=== PATIENT | female | born 1945 | race Asian ===

== ENCOUNTER 2019-09-28 12:25 | Outpatient (CLI) | payer MEDICARE, OTHER, SELFPAY ==
--- NOTE | ~2019-09-28 | XR_ITS ---
XR hand LT min 3V DATE: 09/28/2019 12:49 INDICATION: Slammed hand in trace can lid. Third digit pain. TECHNIQUE: 3 views COMPARISON: 10/16/2011 left hand FINDINGS: No fracture or dislocation, periosteal reaction or bone destruction. There are osteoarthritic changes involving particularly the distal interphalangeal joints, most promi nent at the fifth, third and particularly second distal interphalangeal joints. There is narrowing at the triscaphe joint. Osteopenia. IMPRESSION: Osteoarthritic changes No fracture or dislocation Reviewed, dictated and finalized at location J.
== END 2019-09-28 12:26 | disposition home or self-care (01) ==
PROVIDERS: PCP Family Medicine; Visit Provider Family Medicine
DX: M79.642 Pain in left hand (principal)
CPT/HCPCS: 73130

== ENCOUNTER 2019-11-30 14:31 | Outpatient (CLI) | payer MEDICARE, OTHER, SELFPAY ==
--- NOTE | ~2019-11-30 | XR_ITS ---
EXAMINATION: XR foot RT standing 2V EXAM DATE: 11/30/2019 15:53 INDICATION: Foot pain. Osteoarthritis. TECHNIQUE: Frontal and lateral projections of the right foot. Correlation is made to contralateral f oot same date. FINDINGS: There is mild polyarticular right foot interphalangeal primary osteoarthritis. There are no acute fractures or dislocations identified. There is no subcutaneous gas. The soft tissue is unrem arkable. There are no radiopaque foreign bodies. There are no bony erosions identified. IMPRESSION: Mild right foot polyarticular interphalangeal osteoarthritis. Reviewed, dictated and finalized at location A.
--- NOTE | ~2019-11-30 | XR_ITS ---
EXAMINATION: XR lumbar spine 2-3V EXAM DATE: 11/30/2019 15:53 INDICATION: Arthritis. Back pain. TECHNIQUE: Lumber spine frontal, lateral, lateral L5-S1 projections for interpretation. Comparison is made to prior examination from 01/04/2009. FINDINGS: There is moderate disc disease at L5-S1, mild to moderate at L3-4 with 2-3 mm anterolisthe sis at this level. Mild disc disease at the other lumbar levels. There is mild to moderate lumbar fac et arthropathy. Mild scattered aortic arterial sclerosis. Mild diffuse chronic appearing loss of the L5 vertebral body height. There are no acute fractures identified. Sacrum, sacroiliac joints, sacral arcuate lines are intact. There are cholecystectomy clips. There has been mild progression in these f indings compared to 2008. IMPRESSION: Mild to moderate lumbar spondylosis. Reviewed, dictated and finalized at location A.
--- NOTE | ~2019-11-30 | XR_ITS ---
XR knee RT 3V, XR knee LT 3V 11/30/2019 15:54 Indication: Knee pain. Osteoarthritis. Procedure: 3 views of each knee Comparison: No prior studies for comparison. Findings: No fracture, subluxation or dislocation. There is chronic sclerosis bilaterally and symmetr ically in the distal femoral diaphysis, likely benign. No significant joint space narrowing. No erosi ve changes. No significant joint effusion. Impression: 1: No acute bone or joint abnormality. Reviewed, dictated and finalized at location A. Impression: 1: No acute bone or joint abnormality. Impression: 1: No acute bone or joint abnormality.
--- NOTE | ~2019-11-30 | XR_ITS ---
EXAMINATION: XR hip BI 2V w AP pelvis EXAM DATE: 11/30/2019 15:54 INDICATION: Osteoarthritis. TECHNIQUE: Each hip imaged independently (separate right and also left hip) 'frog leg' and frontal p rojections for interpretation. Frontal projection pelvis. Comparison is made to prior examination fr om 03/22/2013. FINDINGS: No radiographic evidence of hip avascular necrosis. There is mild symmetric bilateral hip primary osteoarthritis. There is advanced disc disease at L5-S1. There are no acute fractures or di slocations identified. There is no subcutaneous gas. The soft tissue is unremarkable. There are n o radiopaque foreign bodies. IMPRESSION: Mild symmetric bilateral hip osteoarthritis. Reviewed, dictated and finalized at location A.
--- NOTE | ~2019-11-30 | XR_ITS ---
EXAMINATION: XR hand BI arthritis min 3V EXAM DATE: 11/30/2019 15:53 INDICATION: Osteoarthritis. Bilateral hand pain. TECHNIQUE: Right hand frontal, lateral and oblique projections obtained and reviewed. Left hand fron kenia, lateral and oblique projections obtained and reviewed. Catchers projection of both hands. Compar anita is made to prior examination from 12/27 07/19 (left hand). FINDINGS: Right hand: There is moderate right 2nd, 5th distal interphalangeal primary osteoarthritis. Otherwis e mild distal interphalangeal osteoarthritis. There are no bony erosions identified. Left hand: There is polyarticular primary osteoarthritis as follows: Moderate 2nd, 3rd, 5th DIP, mild 1st IP and 4th DIP. There are no bony erosions identified. The soft tissue is unremarkable. IMPRESSION: Polyarticular osteoarthritis, moderate at the right 2nd, 5th DIP joints and left 2nd 3rd and 5th DIP joints. Reviewed, dictated and finalized at location A. IMPRESSION: Polyarticular osteoarthritis, moderate at the right 2nd, 5th DIP riri ints and left 2nd 3rd and 5th DIP joints.
--- NOTE | ~2019-11-30 | XR_ITS ---
EXAMINATION: XR foot LT standing 2V EXAM DATE: 11/30/2019 15:53 INDICATION: Osteoarthritis. Foot pain. TECHNIQUE: Frontal and lateral projections of the left foot. Comparison is made to prior examination from 12/26/2006. FINDINGS: There are no acute left foot fractures or dislocations identified. There is no subcutaneou s gas. The soft tissue is unremarkable. There are no radiopaque foreign bodies. There are no bony erosions identified. There is mild polyarticular interphalangeal primary osteoarthritis. IMPRESSION: Mild left foot polyarticular interphalangeal osteoarthritis. Reviewed, dictated and finalized at location A.
== END 2019-11-30 14:32 | disposition home or self-care (01) ==
LOC: ANHIMG 14:48
PROVIDERS: PCP Family Medicine; Visit Provider Internal Medicine
DX: M16.0 Bilateral primary osteoarthritis of hip (principal); M19.071 Primary osteoarthritis, right ankle and foot; M19.072 Primary osteoarthritis, left ankle and foot; M47.896 Other spondylosis, lumbar region; M19.041 Primary osteoarthritis, right hand; M19.042 Primary osteoarthritis, left hand
CPT/HCPCS: 72100; 73130; 73521; 73562; 73620

== ENCOUNTER 2019-12-14 00:39 | Outpatient (CLI) | payer MEDICARE, OTHER, SELFPAY ==
[2019-12-14 18:12] LABS: SARS-CoV-2 RNA PCR Negative
== END 2019-12-14 00:40 | disposition home or self-care (01) ==
LOC: ANHCOVIDDT 00:39
PROVIDERS: PCP Family Medicine; Visit Provider Internal Medicine Gastroenterology
DX: Z01.812 Encounter for preprocedural laboratory examination (principal); Z20.828 Contact with and (suspected) exposure to other viral communicable diseases
CPT/HCPCS: 87635; C9803; U0003

== ENCOUNTER 2019-12-16 00:38 | Day surgery (SDC) | payer MEDICARE, SELFPAY ==
[2019-12-13 13:17] VITALS: BMI 18.1
[2019-12-16 09:08] VITALS: BP 143/89; RESP 16; TEMP 36.6; O2SAT 99; BMI 17.4
[2019-12-16] MEDS: LACTATED RINGERS 1,000 ML 150 ML IV CONT (09:20)
--- NOTE | 2019-12-16 09:22 | PM.IMHP ---
H&P: HPI History of Present Illness Chief complaint: GASTRIC ULCER HEMORRHAGE Narrative: Reason for visit EGD. Impression: History of gastric ulcer disease. GERD. Her past medical history. Recommendation: EGD. History: This very pleasant lady has a history of multiple gastric ulcers. She is here for follow-up endoscopy to assess healing. She continues to complain of occasional abdominal discomfort. She has a history reflux disease and is on omeprazole. She takes Pepcid on a p.r.n. basis. She is here for endoscopy. Physical examination: General: very pleasant patient in no acute distress. HEENT: Head was normocephalic sclerae is clear mouth without masses neck was supple. Heart: Rate rhythm regular without S3 or S4. Lungs: CTA. Abdomen: Soft with no guarding or rigidity. Bowel sounds were active. Neurologic: Cranial nerves 2 through 12 intact. No focal defects. No clonus. Musculoskeletal system: Revealed no joint tenderness or swelling no muscle atrophy. Extremities: Reveal no significant edema. Skin: Warm and dry with normal turgor. Mental status: intact. Patient is alert and oriented. Review of Systems Review of Systems: All systems reviewed & are unremarkable except as noted in HPI and below PMFSH Past Medical History Medical History (Updated 12/16/19 @ 09:20 by Dmitriy Pak DO) Anxiety Arthritis Back pain Chronic GERD Chronic narcotic use Depression Fibromyalgia Gastric ulcer HTN (hypertension) Hypercholesterolemia Inflammatory arthritis Osteoporosis Surgical History Surgical History History of back surgery Hx laparoscopic cholecystectomy Hx of colonoscopy Hx of esophagogastroduodenoscopy Hx of submandibular gland removal Social History Social History Smoking status: Never smoker Alcohol intake: never Substance use: never Meds Home Medications and Allergies Home Medications Medication Instructions Recorded Confirmed Type baclofen 10 mg PO Q8-10H PRN 05/13/19 12/13/19 History famotidine 20 mg PO PRN 05/13/19 12/16/19 History fexofenadine [Alice Allergy] 60 mg PO PRN 05/13/19 12/16/19 History omeprazole 40 mg PO DAILY 05/13/19 12/16/19 History ondansetron 4 mg TRANSLINGUAL PRN PRN 05/13/19 12/13/19 History tramadol 50 mg PO Q6-8H PRN 05/13/19 12/16/19 History zolpidem 10 mg PO HS PRN 05/13/19 12/16/19 History lidocaine HCl 2 % mucosal solution 5 ml PO Q3-4H #100 ml 09/06/19 12/16/19 Rx clonazepam 0.5 mg PO BID 12/13/19 12/13/19 History gabapentin 300 mg capsule 300 mg PO TID #90 cap 12/13/19 12/16/19 Rx Allergies Allergy/AdvReac Type Severity Reaction Status Date / Time Sulfa (Sulfonamide Allergy Mild Nausea and Verified 12/16/19 09:07 Antibiotics) Vomiting amitriptyline Allergy Unknown Dizziness Verified 12/16/19 09:07 nortriptyline Allergy Unknown Constipatio Verified 12/16/19 09:07 n Opioids - Morphine Analogues Allergy Unknown Dizziness Verified 12/16/19 09:07 codeine AdvReac Mild NAUSEA Verified 12/16/19 09:07 ADHESIVES Allergy Mild RASH/IRRITA Uncoded 06/03/19 12:03 TION Vital Signs Vital Signs - 24 hr 12/16/19 09:08 Temperature 36.6 C Respiratory Rate 16 Blood Pressure 143/89 H Pulse Oximetry 99
--- NOTE | 2019-12-16 09:25 | WPDANESEPPF ---
Anes - Initial Pre Proc Eval Procedure: Operation Date: 12/16/19 10:30 Proposed Procedures p Esophagogastroduodenoscopy - Dmitriy Pak DO Date/Time: 12/16/19 09:25 Surgeon: Dmitriy Pak DO Pre Op Diagnosis: GASTRIC ULCER HEMORRHAGE Patient Data Age: 74 Gender: F Height: 5 ft 4 in Weight: 46 kg Last Vital Signs Temp 97.8 F 12/16/19 09:08 Resp 16 12/16/19 09:08 BP 143/89 H 12/16/19 09:08 Pulse Ox 99 12/16/19 09:08 Allergies Allergy/AdvReac Type Severity Reaction Status Date / Time Sulfa (Sulfonamide Allergy Mild Nausea and Verified 12/16/19 09:07 Antibiotics) Vomiting amitriptyline Allergy Unknown Dizziness Verified 12/16/19 09:07 nortriptyline Allergy Unknown Constipatio Verified 12/16/19 09:07 n Opioids - Morphine Analogues Allergy Unknown Dizziness Verified 12/16/19 09:07 codeine AdvReac Mild NAUSEA Verified 12/16/19 09:07 ADHESIVES Allergy Mild RASH/IRRITA Uncoded 06/03/19 12:03 TION Home Medications Medication Instructions Recorded Confirmed Type baclofen 10 mg PO Q8-10H PRN 05/13/19 12/13/19 History famotidine 20 mg PO PRN 05/13/19 12/16/19 History fexofenadine [Alice Allergy] 60 mg PO PRN 05/13/19 12/16/19 History omeprazole 40 mg PO DAILY 05/13/19 12/16/19 History ondansetron 4 mg TRANSLINGUAL PRN PRN 05/13/19 12/13/19 History tramadol 50 mg PO Q6-8H PRN 05/13/19 12/16/19 History zolpidem 10 mg PO HS PRN 05/13/19 12/16/19 History lidocaine HCl 2 % mucosal solution 5 ml PO Q3-4H #100 ml 09/06/19 12/16/19 Rx clonazepam 0.5 mg PO BID 12/13/19 12/13/19 History gabapentin 300 mg capsule 300 mg PO TID #90 cap 12/13/19 12/16/19 Rx Patient hx anesthesia problems: none Family hx anesthesia problems: none PMFSH Past Medical History Medical History (Updated 12/16/19 @ 09:20 by Dmitriy Pak DO) Anxiety Arthritis Back pain Chronic GERD Chronic narcotic use Depression Fibromyalgia Gastric ulcer HTN (hypertension) Hypercholesterolemia Inflammatory arthritis Osteoporosis Surgical History Surgical History History of back surgery Hx laparoscopic cholecystectomy Hx of colonoscopy Hx of esophagogastroduodenoscopy Hx of submandibular gland removal Social History Social History Smoking status: Never smoker Alcohol intake: never Substance use: never Anes - Eval Final PreProcedure Day of Procedure 12/16/19 09:25 Patient weight: normal Heart: regular rate and rhythm Lungs: clear to auscultation Airway: Mallampati scale class II Neurological: alert and oriented Last oral intake: >/= 8 hours ASA classification: III Emergent: no Anesthetic plan: proceed Anesthesia type and monitoring: general GIVS and standard monitoring Informed Consent: The patient's anesthetic plan and its attendant risks and benefits were discussed with the patient/family/POA. Questions were solicited and answers provided to the satisfaction of the patient/family/POA.
[2019-12-16 09:42] VITALS: BP 126/80; PULSE 75; RESP 20; O2SAT 99
[2019-12-16 09:52] VITALS: BP 113/73; PULSE 80; RESP 21; O2SAT 99
[2019-12-16 10:02] VITALS: BP 117/76; PULSE 76; RESP 21; O2SAT 99
== END 2019-12-16 10:26 | disposition home or self-care (01) ==
PROVIDERS: PCP Family Medicine; Visit Provider Internal Medicine Gastroenterology
PROC: 0DJ08ZZ Inspection of Upper Intestinal Tract, Via Natural or Artificial Opening Endoscopic (ICD-10-PCS; CPT 43235; principal; 2019-12-16 10:30)
DX: Z09 Encounter for follow-up examination after completed treatment for conditions other than malignant neoplasm (principal); K21.9 Gastro-esophageal reflux disease without esophagitis; Z87.11 Personal history of peptic ulcer disease; I10 Essential (primary) hypertension; E78.00 Pure hypercholesterolemia, unspecified; M81.0 Age-related osteoporosis without current pathological fracture; M79.7 Fibromyalgia; F41.8 Other specified anxiety disorders
CPT/HCPCS: 43235; 87081; J2704; J7120

== ENCOUNTER 2020-03-16 12:51 | Outpatient (CLI) | payer MEDICARE, OTHER, SELFPAY ==
--- NOTE | ~2020-03-16 | MR_ITS ---
EXAMINATION: MR lumbar spine wo con DATE: 03/16/2020 13:41 INDICATION: Lumbosacral radiculopathy. TECHNIQUE: Magnetic resonance imaging (MRI) of the lumbar spine was performed without intravenous con trast. Sequences included sagittal T2-weighted FSE, sagittal STIR FSE, sagittal T1-weighted FSE, and axial T2-weighted FSE. COMPARISON: Lumbar spine MRI 12/16/2013 FINDINGS: There is 3 mm anterolisthesis of L3 on L4. Vertebral body heights are normal. There is mode rately decreased disc height at L3-L4 and severely decreased disc height at L5-S1. The distal spinal cord signal intensity is normal. The conus medullaris is at L1. The following disc levels are specifi sherwin discussed: L1-L2: The disc does not extend beyond the endplate margin. There is mild bilateral facet joint osteo arthritis. There is no neural foraminal stenosis. There is no central canal stenosis. L2-L3: The disc is mildly bulging. There is mild bilateral facet joint osteoarthritis. There is mild bilateral neural foraminal stenosis. There is no central canal stenosis. L3-L4: The disc is bulging and has an annular fissure. There is severe right and moderate left facet joint osteoarthritis. There is mild bilateral neural foraminal stenosis. There is mild central canal stenosis. L4-L5: The disc is bulging and has an annular fissure. There is moderate bilateral facet joint osteoa rthritis. There is mild right and moderate left neural foraminal stenosis. There is mild central jesús l stenosis. L5-S1: The disc is bulging and has an annular fissure. There is mild bilateral facet joint osteoarthr itis. There is moderate bilateral neural foraminal stenosis. There is mild central canal stenosis. IMPRESSION: 1. Severe lumbar spondylosis, stable from 12/16/2013. Reviewed, dictated and finalized at location A.
== END 2020-03-16 12:52 | disposition home or self-care (01) ==
PROVIDERS: PCP Family Medicine; Visit Provider Nurse Practitioner Adult Health
DX: M54.17 Radiculopathy, lumbosacral region (principal); M47.896 Other spondylosis, lumbar region
CPT/HCPCS: 72148

== ENCOUNTER 2020-05-17 10:21 | Outpatient (CLI) | payer MEDICARE, OTHER, SELFPAY ==
--- NOTE | ~2020-05-17 | CT_ITS ---
EXAMINATION: CT soft tissue neck w con DATE: 05/17/2020 10:44 INDICATION: Lesions of oral mucosa. TECHNIQUE: Computed tomography (CT) of the neck was performed with 75 mL Omnipaque-350 intravenous co ntrast. Automated exposure control and iterative reconstruction technique were employed. The dose-christian gth product was 304.14 mGy-cm. 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 There are no pathologic ally enlarged lymph nodes. There are nodules in the thyroid measuring up to 7 mm, likely not clinical ly significant. There is plaque in proximal left internal carotid artery with 0% stenosis relative to normal distal artery lumen diameter. There is mild cervical spondylosis. There is mild chronic heigh t loss of T3 and T4 vertebral bodies. IMPRESSION: 1. No lymphadenopathy. Reviewed, dictated and finalized at location A. CARVER IMPRESSION: 1. No lymphadenopathy.
[2020-05-17 10:42] LABS: Estimated Glomerular Filt Rate > 60
== END 2020-05-17 10:22 | disposition home or self-care (01) ==
LOC: ANHIMG 10:24
PROVIDERS: PCP Family Medicine; Visit Provider Family Medicine
DX: K13.79 Other lesions of oral mucosa (principal); Z98.890 Other specified postprocedural states; Z90.89 Acquired absence of other organs
CPT/HCPCS: 70491; Q9967

== ENCOUNTER 2020-06-27 11:52 | Outpatient (CLI) | payer MEDICARE, OTHER, SELFPAY ==
--- NOTE | ~2020-06-27 | XR_ITS ---
EXAMINATION: XR chest 2V EXAM DATE: 06/27/2020 12:11 INDICATION: R61 - Generalized hyperhidrosis. Swelling. TECHNIQUE: Frontal and lateral projections of the chest obtained and reviewed. Comparison is made to prior examination from 01/20/2019. FINDINGS: The lungs are hyperinflated which can be seen with chronic obstructive pulmonary disease ( a clinical diagnosis of functional impairment), but is not diagnostic of it. There are cholecystectom y clips. No confluent consolidation, pneumothorax or pleural effusion suspected. Mild thoracic dextro scoliosis. IMPRESSION: Hyperinflation. No acute cardiopulmonary findings. Reviewed, dictated and finalized at location B. 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
== END 2020-06-27 11:53 | disposition home or self-care (01) ==
LOC: ANHIMG 11:54
PROVIDERS: PCP Family Medicine; Visit Provider Family Medicine
DX: R61 Generalized hyperhidrosis (principal); R91.8 Other nonspecific abnormal finding of lung field
CPT/HCPCS: 71046

== ENCOUNTER 2020-07-10 14:12 | Emergency (ER) | payer MEDICARE, OTHER, SELFPAY ==
--- NOTE | 2020-07-10 14:19 | ECG_ITS ---
Measurements Intervals [place] Rate: 87 P: 80 FL: 194 QRS: 74 QRSD: 74 T: 55 QT: 343 QTc: 415 Interpretive Statements SINUS RHYTHM BORDERLINE R WAVE PROGRESSION, ANTERIOR LEADS BORDERLINE ECG Electronically Signed On 07-10-2020 15:35:06 [employer] by Alex Anthony D.O.
--- NOTE | 2020-07-10 15:05 | PC.NURSE ---
no answer when called from waiting room
== END 2020-07-10 15:05 | disposition left against medical advice (07) ==
PROVIDERS: Emergency Provider Emergency Medicine; PCP Family Medicine
DX: Z53.21 Procedure and treatment not carried out due to patient leaving prior to being seen by health care provider (principal)
CPT/HCPCS: 93005; 99199

== ENCOUNTER 2020-08-01 15:43 | Emergency (ER) | payer MEDICARE, OTHER, SELFPAY ==
[2020-08-01 15:54] VITALS: BP 146/82; PULSE 90; RESP 20; TEMP 37; O2SAT 100
[2020-08-01 16:01] VITALS: BP 146/82; PULSE 90; RESP 20; TEMP 37; O2SAT 100
--- NOTE | 2020-08-01 16:03 | ED.GENADULT ---
HPI - General Adult General Chief complaint: Dental/Oral Stated complaint: thrush Time Seen by Provider: 08/01/20 15:45 Source: patient Mode of arrival: ambulatory Limitations: no limitations History of Present Illness HPI narrative: 75-year-old female presents to [facility] with complaints of burning sensation to her mouth with white discoloration to her tongue and roof of mouth for the past 1 month. Patient reports that she had similar symptoms in the past, was evaluated at local emergency room, diagnosed with thrush and was prescribed Diflucan at that time. Patient reports that she is scheduled for her regular checkup with her primary care provider in August. Patient reports that she has to scrape off the white discoloration to her tongue daily. Patient denies fever, body aches, chills, nausea, vomiting, diarrhea. Onset (ago): month(s) (1) Location: mouth Quality: burning Pain Consistency: intermittent Relieving factors: none Exacerbating factors: none Associated symptoms: denies other symptoms Treatments prior to arrival: none Related Data Home Medications Medication Instructions Recorded Confirmed baclofen 10 mg PO Q8-10H PRN 05/13/19 08/01/20 fexofenadine [Alice Allergy] 60 mg PO PRN 05/13/19 08/01/20 Allergies Allergy/AdvReac Type Severity Reaction Status Date / Time Sulfa (Sulfonamide Allergy Mild Nausea and Verified 07/12/20 12:19 Antibiotics) Vomiting amitriptyline Allergy Unknown Dizziness Verified 07/12/20 12:19 nortriptyline Allergy Unknown Constipatio Verified 07/12/20 12:19 n Opioids - Morphine Analogues Allergy Unknown Dizziness Verified 07/12/20 12:19 codeine AdvReac Mild NAUSEA Verified 07/12/20 12:19 ADHESIVES Allergy Mild RASH/IRRITA Uncoded 06/03/19 12:03 TION Review of Systems Constitutional: Constitutional: Denies chills, Denies fatigue, Denies fever(s) and Denies weakness ENT: Denies dysphagia, Denies vertigo, Denies dizziness, Denies epistaxis, Denies nasal congestion and Denies sore throat Comments: burning sensation to mouth and white discoloration to tongue and roof of mouth X 1 month Cardiovascular: Cardiovascular: Denies chest pain Respiratory: Respiratory: Denies chest congestion, Denies cough, Denies dyspnea and Denies wheezing Gastrointestinal: Gastrointestinal: Denies abdominal pain, Denies diarrhea, Denies nausea and Denies vomiting Musculoskeletal: Musculoskeletal: Denies back pain Neurologic: Denies vertigo, Denies dizziness and Denies syncope Endocrine: Endocrine: Denies excessive sweating, Denies fatigue, Denies polydipsia and Denies polyuria PMF Past Medical History Medical History Anxiety Arthritis Back pain Chronic GERD Chronic narcotic use Depression Fibromyalgia Gastric ulcer Generalized osteoarthritis of multiple sites HLD (hyperlipidemia) HTN (hypertension) Inflammatory arthritis NAFLD (nonalcoholic fatty liver disease) Osteoporosis Sclerosing bone dysplasia (~2018) Surgical History Surgical History History of back surgery Hx laparoscopic cholecystectomy Hx of colonoscopy Hx of esophagogastroduodenoscopy Hx of submandibular gland removal Family History Family History Sibling Hypertension Family history of malignant neoplasm Other Family history of lung disease Social History Social History Smoking status: Never smoker Alcohol intake: never Substance use: never Gender identity (if verbalized by the patient): Female Comments At time of signature, I agree with nursing past medical, surgical, social and family history. There is no relevant family history pertinent to the presenting complaint. Exam Const: General: healthy appearing, no acute distress and alert HENMT: Ears: external ears normal
== END 2020-08-01 16:13 | disposition home or self-care (01) ==
PROVIDERS: Emergency Provider Nurse Practitioner Family; PCP Family Medicine
DX: B37.0 Candidal stomatitis (principal); F41.9 Anxiety disorder, unspecified; M19.90 Unspecified osteoarthritis, unspecified site; K21.9 Gastro-esophageal reflux disease without esophagitis; M79.7 Fibromyalgia; E78.5 Hyperlipidemia, unspecified; I10 Essential (primary) hypertension; M81.0 Age-related osteoporosis without current pathological fracture
CPT/HCPCS: 99213; G0463

== ENCOUNTER 2020-09-08 13:06 | Outpatient (CLI) | payer MEDICARE, OTHER, SELFPAY | END 2020-09-08 13:07 | disposition home or self-care (01) | LOC: ANHCOVIDVC 13:06 | PROVIDERS: PCP Family Medicine | DX: Z23 Encounter for immunization (principal) | CPT/HCPCS: 0001A; 91300 ==

== ENCOUNTER 2020-09-12 12:52 | Outpatient (CLI) | payer MEDICARE, OTHER, SELFPAY ==
--- NOTE | ~2020-09-12 | MR_ITS ---
EXAMINATION: MR cervical spine wo con DATE: 09/12/2020 13:36 INDICATION: Cervical disc disorder. TECHNIQUE: Magnetic resonance imaging (MRI) of the cervical spine was performed without intravenous c ontrast. Sequences included sagittal T2-weighted FSE, sagittal STIR FSE, sagittal T1-weighted FSE, ax ial MERGE, and axial T2-weighted FSE. COMPARISON: Neck CT 05/17/2020 FINDINGS: There is kyphosis of cervical spine. There is 2 mm anterolisthesis of C4 on C5. Vertebral b manasa heights are normal. There is mildly decreased disc height from C3-C4 through C6-C7. There is rosalinda re osteoarthritis of anterior atlantoaxial joint. C1 ring is small with mild central canal stenosis. The spinal cord signal intensity is normal. The following disc levels are specifically discussed: C2-C3: There is a central protrusion. There is mild bilateral uncovertebral joint osteoarthritis. The re is mild bilateral facet joint osteoarthritis. There is no neural foraminal stenosis. There is mild central canal stenosis. C3-C4: The disc is bulging. There is moderate right and mild left uncovertebral joint osteoarthritis. There is mild bilateral facet joint osteoarthritis. There is mild right neural foraminal stenosis. T here is mild central canal stenosis with ventral indentation of the spinal cord. C4-C5: The disc is bulging. There is severe bilateral uncovertebral joint osteoarthritis. There is no facet joint osteoarthritis. There is mild bilateral neural foraminal stenosis. There is mild central canal stenosis with ventral indentation of the spinal cord. C5-C6: The disc is bulging. There is severe bilateral uncovertebral joint osteoarthritis. There is no facet joint osteoarthritis. There is mild left neural foraminal stenosis. There is mild central jesús l stenosis with ventral indentation of the spinal cord. C6-C7: The disc is bulging. There is moderate bilateral uncovertebral joint osteoarthritis. There is severe bilateral facet joint osteoarthritis. There is mild bilateral neural foraminal stenosis. There is mild central canal stenosis. C7-T1: The disc does not extend beyond the endplate margin. There is no uncovertebral joint osteoarth ritis. There is mild bilateral facet joint osteoarthritis. There is no neural foraminal stenosis. The re is no central canal stenosis. IMPRESSION: 1. Moderate cervical spondylosis. Reviewed, dictated and finalized at location A.
== END 2020-09-12 12:53 | disposition home or self-care (01) ==
PROVIDERS: PCP Family Medicine; Visit Provider Family Medicine
DX: M50.90 Cervical disc disorder, unspecified, unspecified cervical region (principal); M47.892 Other spondylosis, cervical region
CPT/HCPCS: 72141

== ENCOUNTER 2020-09-15 14:57 | Outpatient (CLI) | payer MEDICARE, OTHER, SELFPAY ==
--- NOTE | ~2020-09-15 | MR_ITS ---
EXAMINATION: MR abdomen wo con DATE: 09/15/2020 16:22 INDICATION: Disorder of adrenal glands. Abdominal pain and constipation. TECHNIQUE: Magnetic resonance imaging (MRI) of the abdomen was performed without intravenous contrast . Sequences included coronal and axial T2-weighted SS-FSE, axial FS 2D-FIESTA, coronal and axial dual -echo T1-weighted FSPGR, coronal and axial T1-weighted LAVA, axial STIR FSE and axial DWI. COMPARISON: None. FINDINGS: Pectus excavatum sternum exerting mild mass effect on the anterior wall of the right atrium. Heart si ze is normal. No pericardial or pleural effusion. 7 mm T2 hyperintense cyst at the posterior dome of the liver. Spleen, pancreas, bilateral adrenal glands and kidneys are normal. Gallbladder surgically absent. The common bile duct measures up to 1.6 cm maximal diameter and tapers smoothly distally. No choledocholithiasis or intrahepatic biliary ductal dilation. Visualized portions of the bowels are un remarkable. No pathologically enlarged abdominal lymphadenopathy. Severe disc height loss with mild d egenerative endplate changes at L5-S1. Otherwise mild lumbar spondylosis. IMPRESSION: 1. Normal adrenal glands. Reviewed, dictated and finalized at location B. IMPRESSION: 1. Normal adrenal glands.
== END 2020-09-15 14:58 | disposition home or self-care (01) ==
PROVIDERS: PCP Family Medicine; Visit Provider Family Medicine
DX: E27.8 Other specified disorders of adrenal gland (principal)
CPT/HCPCS: 74181

== ENCOUNTER 2020-09-29 13:10 | Outpatient (CLI) | payer MEDICARE, OTHER, SELFPAY | END 2020-09-29 13:11 | disposition home or self-care (01) | LOC: ANHCOVIDVC 13:10 | PROVIDERS: PCP Family Medicine | DX: Z23 Encounter for immunization (principal) | CPT/HCPCS: 0002A; 91300 ==

== ENCOUNTER 2020-11-01 15:03 | Outpatient (CLI) | payer MEDICARE, OTHER, SELFPAY ==
--- NOTE | ~2020-11-01 | XR_ITS ---
EXAMINATION: XR knee LT 3V, XR knee RT 3V DATE: 11/01/2020 15:28 INDICATION: Bilateral posterior knee pain. TECHNIQUE: 1. AP, lateral and sunrise views of the right knee were obtained. 2. AP, lateral and sunrise views of the left knee were obtained. COMPARISON: 11/30/2019 FINDINGS: Alignment is normal at both knees. No fracture. Tiny marginal osteophytes at the medial and lateral c ompartments the right knee with relatively preserved joint space consistent with minimal osteoarthrit is. Joint space at the left knee are unremarkable. No joint effusion at either knee. Atherosclerotic calcification along the bilateral popliteal arteries. Soft tissues are unremarkable. IMPRESSION: 1. No knee joint effusion or acute osseous abnormality at either knee. 2. Minimal osteoarthritis of the medial and lateral compartments the right knee. Reviewed, dictated and finalized at location A. IMPRESSION: 1. No knee joint effusion or acute osseous abnormality at either knee. 2. Minimal osteoarthritis of the medial and lateral compartments the right knee .
== END 2020-11-01 15:04 | disposition home or self-care (01) ==
PROVIDERS: PCP Family Medicine; Visit Provider Family Medicine
DX: M17.0 Bilateral primary osteoarthritis of knee (principal)
CPT/HCPCS: 73562

== ENCOUNTER 2021-03-23 14:03 | Outpatient (CLI) | payer MEDICARE, OTHER, SELFPAY ==
--- NOTE | ~2021-03-23 | XR_ITS ---
EXAMINATION: XR mandible min 4V DATE: 03/23/2021 14:24 INDICATION: Jaw pain, left greater than right. TECHNIQUE: 4 views of the mandible were obtained including AP, Fitzpatrick and left and right oblique proj ections. COMPARISON: Neck CT dated 05/17/2020 FINDINGS: Normal alignment at the bilateral temporomandibular joints. No mandibular or other evident maxillofac ial fracture. Nasal septum is midline. Multiple dental bridges. Paranasal sinuses appear well-aerated with no evident air-fluid levels. Moderate cervical spondylosis with multilevel facet and uncoverteb ral osteoarthritis. IMPRESSION: 1. Normal alignment at the temporomandibular joints with no fracture. Reviewed, dictated and finalized at location A.
== END 2021-03-23 14:04 | disposition home or self-care (01) ==
LOC: ANHIMG 14:07
PROVIDERS: PCP Family Medicine; Visit Provider Family Medicine
DX: R68.84 Jaw pain (principal); G89.29 Other chronic pain
CPT/HCPCS: 70110

== ENCOUNTER 2021-05-28 13:09 | Outpatient (CLI) | payer MEDICARE, OTHER, SELFPAY ==
--- NOTE | ~2021-05-28 | DEXA_ITS ---
Bone Density Report Name: Michelle Chaudhary Age: 76 Sex: Female Ethnicity: Date of : 1945 Indication: osteopenia; monitoring treatment; height loss; postmenopausal Referring Provider: TIMOTHY CHIRINOS Study: Bone densitometry was performed. Exam Date: May 28, 2021 Accession number: [id number] Bone Density: Region BMD T-score Z-score Classification AP Spine (L1, L2, L3) 0.930 -0.8 1.5 Normal Femoral Neck (Left) 0.551 -2.7 -0.7 Osteoporosis Total Hip (Left) 0.721 -1.8 -0.1 Osteopenia Total Hip Bilateral Avg 0.718 -1.9 -0.1 Osteopenia Femoral Neck (Right) 0.618 -2.1 -0.1 Osteopenia Total Hip (Right) 0.714 -1.9 -0.1 Osteopenia World Health Organization criteria for BMD impression classify patients as: Normal (T-score at or above -1.0), Osteopenia (T-score between -1.0 and -2.5), or Osteoporosis (T-score at or below -2.5). 10-year Fracture Risk: FRAX not reported because: Some T-score for Spine Total or Hip Total or Femoral Neck at or below -2.5 Treated for osteoporosis Previous Exams: Region Exam Age BMD T-score BMD Change BMD Change Date g/cm2 vs Baseline vs Previous AP Spine(L1, L2, L3) 05/28/2021 76 0.930 -0.8 -0.126(-11.9%) -0.047(-4.9%)* 05/13/2019 73 0.977 -0.4 -0.078(-7.4%)# 0.048(5.1%)* 04/10/2017 71 0.930 -0.8 -0.126(-11.9%) -0.009(-0.9%) 03/28/2015 69 0.939 -0.7 -0.117(-11.1%) -0.043(-4.3%)# 03/08/2013 67 0.981 -0.3 -0.074(-7.0%)# -0.062(-6.0%)# 02/26/2011 65 1.043 0.2 -0.012(-1.2%) 0.027(2.7%)* 09/14/2008 63 1.016 0.0 -0.039(-3.7%)* -0.070(-6.4%)* 02/08/2006 60 1.086 0.6 0.031(2.9%)* 0.031(2.9%)* 01/19/2005 59 1.056 0.3 Total Hip(Left) 05/28/2021 76 0.721 -1.8 -0.109(-13.1%) -0.050(-6.5%)* 05/13/2019 73 0.771 -1.4 -0.059(-7.1%)# 0.064(9.1%)* 04/10/2017 71 0.706 -1.9 -0.123(-14.8%) -0.041(-5.5%)* 03/28/2015 69 0.747 -1.6 -0.082(-9.9%)# -0.034(-4.3%)# 03/08/2013 67 0.781 -1.3 -0.048(-5.8%)# -0.083(-9.6%)# 02/26/2011 65 0.864 -0.6 0.035(4.2%)* 0.046(5.6%)* 09/14/2008 63 0.818 -1.0 -0.011(-1.3%) -0.011(-1.3%) 02/08/2006 60 0.829 -0.9 -0.001(-0.1%) -0.001(-0.1%) 01/19/2005 59 0.829 -0.9 Total Hip(Right) 05/28/2021 76 0.714 -1.9 -0.127(-15.1%) -0.120(-14.4%) 05/13/2019 73 0.835 -0.9 -0.006(-0.7%)# 0.150(21.9%)* 04/10/2017 71 0.685 -2.1 -0.156(-18.6%) -0.083(-10.8%) 03/28/2015 69 0.768 -1.4 -0.073(-8.7%)# -0.018(-2.3%)# 03/08/2013 67 0.785 -1.3 -0.055(-6.6%)# -0.071(-8.3%)# 02/26/2011 65 0.857 -0.7 0.016(1.9%) 0.022(2.7%) 09/14/2008 63 0.835 -0.9 -0.006(-0.7%
== END 2021-05-28 13:10 | disposition home or self-care (01) ==
LOC: ANHIMG 13:10
PROVIDERS: PCP Family Medicine; Visit Provider Obstetrics & Gynecology Gynecology
DX: Z78.0 Asymptomatic menopausal state (principal); M81.0 Age-related osteoporosis without current pathological fracture; M85.852 Other specified disorders of bone density and structure, left thigh; M85.851 Other specified disorders of bone density and structure, right thigh
CPT/HCPCS: 77080

== ENCOUNTER 2021-05-29 09:42 | Outpatient (CLI) | payer MEDICARE, OTHER, SELFPAY ==
--- NOTE | ~2021-05-29 | US_ITS ---
US art doppler w press LE BI INDICATION: Leg pain TECHNIQUE: Segmental pressures and plethysmographic and Doppler waveforms of the brachial and lower e xtremity arteries were obtained. COMPARISON: None. FINDINGS: Right and left brachial artery pressures of 143 mm Hg and 143 mm Hg, respectively, are concordant (no rmal difference <= 30 mmHg). The right ankle-brachial index (ELIZABETH) is 1.08 (normal >= 0.9-1.0). The right great toe-brachial index (TBI) is 0.77 (normal >= 0.60). The left ELIZABETH is 1.11. The left TBI is 0.89. IMPRESSION: 1. Normal bilateral ankle and toe brachial indices. Reviewed, dictated and finalized at location B. ECTION SYSTEMS MODELER
== END 2021-05-29 09:43 | disposition home or self-care (01) ==
PROVIDERS: PCP Family Medicine; Visit Provider Family Medicine
DX: M79.662 Pain in left lower leg (principal); M79.661 Pain in right lower leg
CPT/HCPCS: 93923

== ENCOUNTER 2021-07-08 12:01 | Emergency (ER) | payer MEDICARE, OTHER, SELFPAY ==
--- NOTE | ~2021-07-08 | CT_ITS ---
EXAMINATION: CTA chest PE protocol DATE: 07/08/2021 16:27 INDICATION: Chest pain and shortness of breath TECHNIQUE: Computed tomography angiography (CTA) of the chest was performed with 100 mL Omnipaque-350 intravenous contrast timed to evaluate the pulmonary arteries. Coronal maximum intensity projection 3D-reconstructions were created by the technologist. The dose-length product (DLP) was 155.80 mGy-cm. Automated exposure control and iterative reconstruction technique were employed. COMPARISON: None. FINDINGS: The pulmonary arteries are well-opacified. No pulmonary embolism is identified. There are m inimal patchy opacities throughout the left lung and medially in the right lower lobe. No pleural eff usion or pneumothorax is identified. No pathologically enlarged thoracic lymph nodes are identified. The heart size is normal. There is mild thoracic spondylosis. IMPRESSION: 1. No pulmonary embolus. 2. Minimal patchy opacities of the left lung and in the right lower lobe, consistent with atelectasis versus pneumonia. Reviewed, dictated and finalized at location F. NT SUCCESS SPECIALIST IMPRESSION: 1. No pulmonary embolus. 2. Minimal patchy opacities of the left lung and in the right lower lobe, consi stent with atelectasis versus pneumonia.
--- NOTE | ~2021-07-08 | XR_ITS ---
EXAMINATION: XR chest 2V 07/08/2021 12:22 INDICATION: Left chest pain and vomiting PROCEDURE: 2 view chest COMPARISON: Comparison to multiple prior studies sequentially, with oldest reviewed study dated 12/2014. FINDINGS: The lungs are clear. The cardiomediastinal silhouette is within normal limits. There are no pleural effusions. There is no pneumothorax suspected. There is mild dextrocurvature of the lowe r thoracic spine. There is pectus excavatum. IMPRESSION: 1: NO ACUTE CARDIOPULMONARY DISEASE. Reviewed, dictated and finalized at location A. DBA
--- NOTE | 2021-07-08 12:02 | ECG_ITS ---
Measurements Intervals [place] Rate: 76 P: 78 MA: 188 QRS: 79 QRSD: 77 T: 69 QT: 389 QTc: 439 Interpretive Statements SINUS RHYTHM ATRIAL PREMATURE COMPLEXES BORDERLINE R WAVE PROGRESSION, ANTERIOR LEADS BASELINE ARTIFACT- I, II, III, AVR, AVL BORDERLINE ECG Electronically Signed On 07-08-2021 16:06:05 SEGMENT PRODUCER by Alex Anthony D.O.
[2021-07-08 12:50] VITALS: BP 133/83; PULSE 79; RESP 16; TEMP 36.4; O2SAT 100
--- NOTE | 2021-07-08 13:12 | ED.CHESTPAIN ---
HPI - Chest Pain General Chief Complaint: Chest Pain Stated Complaint: chest pain, N/V Time Seen by Provider: 07/08/21 13:07 Source: patient Mode of arrival: ambulatory Limitations: no limitations History of Present Illness HPI narrative: Patient is a 76-year-old female complaining left lower rib pain, sharp, radiating to left back, 7 out of 10, started 1 week ago. Patient states the pain is worse when she takes a deep breath. Patient denies any injury to the area. Patient denies any abdominal pain, nausea, vomiting, diaphoresis, fever or chills. Related Data Allergies Allergy/AdvReac Type Severity Reaction Status Date / Time Sulfa (Sulfonamide Allergy Mild Nausea and Verified 03/14/21 15:53 Antibiotics) Vomiting amitriptyline Allergy Unknown Dizziness Verified 03/14/21 15:53 nortriptyline Allergy Unknown Constipatio Verified 03/14/21 15:53 n Opioids - Morphine Analogues Allergy Unknown Dizziness Verified 03/14/21 15:53 codeine AdvReac Mild NAUSEA Verified 03/14/21 15:53 ADHESIVES Allergy Mild RASH/IRRITA Uncoded 03/14/21 15:53 TION Review of Systems Review of Systems: All systems reviewed & are unremarkable except as noted in HPI and below Constitutional: Constitutional: Denies body ache(s), Denies chills, Denies excessive sweating, Denies fatigue, Denies fever(s), Denies headache(s), Denies lethargy, Denies malaise, Denies weakness and Denies weight loss Eyes: Eyes: Denies blurry vision, Denies change in vision and Denies loss of vision ENT: Denies dizziness, Denies ear discharge, Denies headache(s), Denies lip swelling, Denies epistaxis, Denies nasal congestion, Denies neck pain, Denies throat swelling and Denies tongue swelling Cardiovascular: Cardiovascular: Denies diaphoresis, Denies rapid heart rate, Denies edema, Denies irregular heart rhythm, Denies lightheadedness and Denies palpitations Respiratory: Respiratory: Denies chest congestion, Denies cough and Denies hemoptysis Gastrointestinal: Gastrointestinal: Denies abdominal pain, Denies melena, Denies hematochezia, Denies diarrhea, Denies nausea, Denies vomiting and Denies hematemesis Musculoskeletal: Musculoskeletal: Denies abnormal gait, Denies deformity, Denies joint swelling, Denies limited range of motion, Denies neck pain and Denies numbness Neurologic: Denies Abnormal speech present, Denies abnormal gait, Denies confusion, Denies dizziness, Denies headache(s), Denies focal weakness, Denies loss of vision, Denies numbness, Denies Other visual disturbances, Denies Sensory deficit (Neuro) and Denies weakness Psychiatric: Psychiatric: Denies confusion, Denies depression, Denies auditory hallucinations, Denies homicidal ideation and Denies suicidal ideation Endocrine: Endocrine: Denies cold intolerance, Denies excessive sweating, Denies fatigue, Denies heat intolerance and Denies palpitations Hematologic/Lymphatic: Hematologic/Lymphatic: Denies easy bleeding and Denies easy bruising Allergic/Immunologic: Allergic/Immunologic: Denies lip swelling, Denies throat swelling and Denies tongue swelling PMFSH Past Medical History Medical History Anxiety Arthritis Asthma, mild intermittent Back pain Chronic GERD Chronic jaw pain Chronic narcotic use Depression Fibromyalgia Gastric ulcer Generalized osteoarthritis of multiple sites HLD (hyperlipidemia) HTN (hypertension) Inflammatory arthritis Lumbar disc disease NAFLD (nonalcoholic fatty liver disease) Osteoporosis Sclerosing bone dysplasia (~2018) Surgical History Surgical History History of back surgery Hx laparoscopic cholecystectomy Hx of colonoscopy Hx of esophagogastroduodenoscopy Hx of submandibular gland removal Family History Family History Sibling Hypertension Family history of malignant neoplasm Other Family history
[2021-07-08 13:20] LABS: Basophils Percent Auto 0.5 % (0.2-1.2); Hematocrit 31.4 % (37.0-47.0); Hemoglobin 10.3 g/dL (12.0-15.0); Immature Granulocyte Absolute 0.01 K/mm3 (0.00-0.031); Immature Granulocyte Percent A 0.5 % (0-0.5); Lymphocytes Absolute Auto 0.58 K/mm3 (0.9-3.2); Lymphocytes Percent Auto 26.9 % (18.3-44.2); Mean Corpuscular HGB Conc 32.8 g/dl (32-36); Mean Corpuscular Hemoglobin 27.7 pg (26-34); Mean Corpuscular Volume 84.4 fl (80-100); Mean Platelet Volume 10.2 fl (7.4-10.4); Monocytes Absolute Auto 0.4 K/mm3 (0.1-0.6); Monocytes Percent Auto 17.6 % (2.6-8.5); Neutrophils Absolute Auto 1.2 K/mm3 (1.3-6.7); Neutrophils Percent Auto 54.5 % (45.5-73.1); Platelet Count Result 107 k/mm3 (150-375); Red Blood Count 3.72 M/mm3 (4.2-5.4); Red Cell Distribution Width 12.9 % (11.5-14.5); White Blood Count 2.2 K/mm3 (4.5-10.0)
[2021-07-08 13:25] LABS: INR 0.9
[2021-07-08 13:26] LABS: Alanine Aminotransferase 27 U/L (4-35); Albumin Level 4.3 g/dL (3.5-5.1); Alkaline Phosphatase 53 U/L (38-126); Anion Gap 11 mmol/L (8-16); Aspartate Amino Transferase 42 U/L (14-36); Bilirubin,Total 0.4 mg/dL (0.2-1.3); Blood Urea Nitrogen 15 mg/dL (7-17); Calcium 8.4 mg/dL (8.4-10.2); Carbon Dioxide 26 mmol/L (22-30); Chloride 97 mmol/L (98-107); Estimated CRCL calculation 45 ml/min; Estimated Glomerular Filt Rate > 60; Glucose 128 mg/dL (65-110); Lipase 110 U/L (23-300); Partial Thromboplastin Time 30.5 SECONDS (22.3-36.8); Potassium 3.4 mmol/L (3.4-5.0); Sodium 134 mmol/L (137-145)
[2021-07-08 13:37] LABS: Troponin I 0.016 ng/mL (0.000-0.034)
[2021-07-08 13:42] LABS: D Dimer 0.42 ug/mL (<0.48)
[2021-07-08] MEDS: ASPIRIN 81 MG CHEWABLE TABLET 324 MG PO (15:14)
[2021-07-08] MEDS: LACTATED RINGERS 1,000 ML 999 ML IV CONT (15:14)
[2021-07-08 15:49] LABS: Troponin I < 0.012 ng/mL (0.000-0.034)
[2021-07-08 18:08] VITALS: BP 146/95; PULSE 86; RESP 16; O2SAT 100
== END 2021-07-08 18:10 | disposition home or self-care (01) ==
PROVIDERS: Emergency Medicine; Emergency Provider Emergency Medicine; PCP Family Medicine
DX: R07.89 Other chest pain (principal); J45.20 Mild intermittent asthma, uncomplicated; I10 Essential (primary) hypertension; E78.5 Hyperlipidemia, unspecified; K21.9 Gastro-esophageal reflux disease without esophagitis; M79.7 Fibromyalgia; M19.90 Unspecified osteoarthritis, unspecified site; M81.0 Age-related osteoporosis without current pathological fracture; F41.9 Anxiety disorder, unspecified; F32.A Depression, unspecified; I49.1 Atrial premature depolarization; R94.31 Abnormal electrocardiogram [ECG] [EKG]; R91.8 Other nonspecific abnormal finding of lung field
CPT/HCPCS: 36415; 71046; 71275; 80053; 83690; 84484; 85025; 85380; 85610; 85730; 93005; 96360; 99284; A9270; J7120; Q9967

== ENCOUNTER 2021-08-08 10:49 | Outpatient (CLI) | payer MEDICARE, OTHER, SELFPAY ==
--- NOTE | ~2021-08-08 | MR_ITS ---
EXAMINATION: MR lumbar spine wo/w con DATE: 08/08/2021 12:09 INDICATION: Fibrous dysplasia (monostotic), unspecified site. Chronic low back pain. TECHNIQUE: Magnetic resonance imaging (MRI) of the lumbar spine was performed without and with 7 mL M ultiHance intravenous contrast. Sequences included sagittal T2-weighted FSE, sagittal T2-weighted FS FSE, and sagittal and axial T1-weighted FSE. Postcontrast sequences included axial T2-weighted FSE an d axial and sagittal T1-weighted FS FSE. COMPARISON: Lumbar spine MRI 03/16/2020 FINDINGS: There is 5 degrees levocurvature of lumbar spine. 3 mm anterolisthesis of L3 on L4. Vertebr al body heights are normal. There is moderately decreased disc height at L3-L4 and severely decreased disc height at L5-S1 with endplate remodeling. The distal spinal cord signal intensity is normal. Th e conus medullaris is at L2. The following disc levels are specifically discussed: L1-L2: There is a central protrusion. There is mild bilateral facet joint osteoarthritis. There is no neural foraminal stenosis. There is mild central canal stenosis. L2-L3: The disc does not extend beyond the endplate margin. There is mild bilateral facet joint osteo arthritis. There is no neural foraminal stenosis. There is no central canal stenosis. L3-L4: The disc is bulging and has an annular fissure. There is severe bilateral facet joint osteoart hritis. There is mild bilateral neural foraminal stenosis. There is mild central canal stenosis. L4-L5: The disc is bulging and has an annular fissure. There is moderate bilateral facet joint osteoa rthritis. There is moderate bilateral neural foraminal stenosis. There is mild central canal stenosis . L5-S1: The disc is bulging and has an annular fissure. There is severe bilateral facet joint osteoart hritis. There is moderate bilateral neural foraminal stenosis. There is mild central canal stenosis. IMPRESSION: 1. Severe lower lumbar spondylosis, stable from 03/16/2020. Reviewed, dictated and finalized at location A. ICAL ABSTRACTOR
== END 2021-08-08 10:50 | disposition home or self-care (01) ==
PROVIDERS: PCP Family Medicine; Visit Provider Internal Medicine
DX: M85.00 Fibrous dysplasia (monostotic), unspecified site (principal); M15.9 Polyosteoarthritis, unspecified; M47.896 Other spondylosis, lumbar region
CPT/HCPCS: 72158; A9577

== ENCOUNTER 2021-08-13 12:37 | Outpatient (CLI) | payer MEDICARE, OTHER, SELFPAY ==
--- NOTE | ~2021-08-13 | MR_ITS ---
EXAMINATION: MR femur RT wo/w con, MR knee RT wo/w con DATE: 08/13/2021 14:51 INDICATION: Fibrous dysplasia. Chronic right leg pain. TECHNIQUE: Magnetic resonance imaging (MRI) of the right femur was performed without and with 7 mL Mu ltihance intravenous contrast. Sequences included axial, sagittal and coronal T1-weighted FSE and flu id sensitive FSE STIR, axial T1-weighted FS FSE and postcontrast axial and coronal T1-weighted FS FSE . The contralateral left thigh is included on the coronal images. 2. MRI of the right knee was performed without intravenous contrast. Sequences included coronal PD-w eighted FSE, coronal PD-weighted FS FSE, sagittal T2-weighted FSE, sagittal PD-weighted FS FSE, axial PD weighted fat saturated FSE, axial T1-weighted FS FSE and postcontrast axial and coronal T1-weight ed FS FSE. COMPARISON: Right knee radiographs dated 11/01/2020 FINDINGS: Right thigh/femur: Bone marrow signal is normal throughout. No fracture, reactive edema or pathologic marrow replacing p rocess. Bilateral hip joint spaces appear normal with no joint effusion or synovitis. Soft tissues at the right thigh are unremarkable. No abnormal masses, fluid collections or abnormally enhancing lesi ons. Right knee: Medial compartment: Medial meniscus is normal although evaluation is somewhat limited by some motion artifact. Articular cartilage is normal. Lateral compartment: Horizontal longitudinal tear extending to the inferior articular surface at the body and posterior ho rn of the lateral meniscus. Articular cartilage is normal. Patellofemoral compartment: Articular cartilage is normal. Ligaments and tendons: Anterior and posterior cruciate ligaments are normal. The medial collateral ligament and fibular josé miguel ateral ligament complex are normal. The extensor mechanism is normal. The visualized medial and later al hamstring tendons as well as the iliotibial band are normal. Fluid: Small right knee joint effusion at the suprapatellar pouch. No loose osteochondral bodies identified. Osseous/other: Normal marrow signal. No fracture or abnormal marrow replacing process.. No abnormally enhancing lesi ons identified. IMPRESSION: 1. Longitudinal horizontal tear of the lateral meniscus. Reviewed, dictated and finalized at location A. PY INSPECTOR IMPRESSION: 1. Longitudinal horizontal tear of the lateral meniscus.
[2021-08-13 13:25] LABS: Estimated Glomerular Filt Rate 54
== END 2021-08-13 12:38 | disposition home or self-care (01) ==
PROVIDERS: PCP Family Medicine; Visit Provider Internal Medicine
DX: M85.00 Fibrous dysplasia (monostotic), unspecified site (principal); M15.9 Polyosteoarthritis, unspecified; S83.281A Other tear of lateral meniscus, current injury, right knee, initial encounter; X58.XXXA Exposure to other specified factors, initial encounter
CPT/HCPCS: 73720; 73723; A9577

== ENCOUNTER 2021-08-15 02:03 | Day surgery (SDC) | payer MEDICARE, OTHER, SELFPAY ==
[2021-08-10 12:07] VITALS: BMI 14.3
[2021-08-15 08:13] VITALS: BP 123/83; PULSE 83; RESP 16; TEMP 36.7; O2SAT 98; BMI 14.3
[2021-08-15] MEDS: LACTATED RINGERS 1,000 ML 150 ML IV CONT (08:31)
--- NOTE | 2021-08-15 08:49 | WPDANESEPPF ---
Anes - Initial Pre Proc Eval Procedure: Operation Date: 08/15/21 09:30 Proposed Procedures p Esophagogastroduodenoscopy - Sal Yepez MD Date/Time: 08/15/21 08:49 Surgeon: Sal Yepez MD Pre Op Diagnosis: LUQP, GERD Patient Data Age: 76 Gender: F Height: 1.63 m Weight: 37.8 kg Last Vital Signs Temp 36.7 C 08/15/21 08:13 Pulse 83 08/15/21 08:13 Resp 16 08/15/21 08:13 BP 123/83 08/15/21 08:13 Pulse Ox 98 08/15/21 08:13 Allergies Allergy/AdvReac Type Severity Reaction Status Date / Time amitriptyline Allergy Unknown Dizziness Verified 08/15/21 08:20 nortriptyline Allergy Unknown Constipatio Verified 08/15/21 08:20 n Opioids - Morphine Analogues Allergy Unknown Dizziness Verified 08/15/21 08:20 codeine AdvReac Mild NAUSEA Verified 08/15/21 08:20 Sulfa (Sulfonamide AdvReac Mild Nausea and Verified 08/15/21 08:20 Antibiotics) Vomiting ADHESIVES Allergy Mild RASH/IRRITA Uncoded 08/15/21 08:20 TION Home Medications Medication Instructions Recorded Confirmed Type tramadol 50 mg tablet 50 mg PO Q6-8H PRN #90 tablet 04/03/21 08/15/21 Rx zolpidem 10 mg tablet 10 mg PO HS PRN #30 tablet 07/02/21 08/15/21 Rx ferrous sulfate 325 mg (65 mg 325 mg PO DAILY 07/31/21 08/15/21 History iron) tablet amlodipine 5 mg PO DAILY 08/10/21 08/15/21 History diclofenac sodium 4 g TOPICAL QID PRN 08/10/21 08/15/21 History diclofenac sodium 75 mg PO BID PRN 08/10/21 08/15/21 History famotidine 40 mg PO HS 08/10/21 08/15/21 History gabapentin 600 mg PO QNOON 08/10/21 08/15/21 History lidocaine HCl [Lidocaine Viscous] 5 ml PO Q3-4H PRN 08/10/21 08/15/21 History pantoprazole 40 mg PO QAM 08/10/21 08/15/21 History Patient hx anesthesia problems: none Family hx anesthesia problems: none Results Review: All pre-operative results and documents have been reviewed as part of the pre-operative evaluation. [facility] Past Medical History Medical History Anemia Anorexia Anxiety Arthritis Asthma, mild intermittent Back pain Chronic GERD Chronic jaw pain Chronic LUQ pain Chronic narcotic use Depression Fibromyalgia Gastric ulcer Generalized osteoarthritis of multiple sites HLD (hyperlipidemia) HTN (hypertension) Inflammatory arthritis Leg pain Lumbar disc disease NAFLD (nonalcoholic fatty liver disease) Osteoporosis Sclerosing bone dysplasia (~2018) Surgical History Surgical History History of back surgery Hx laparoscopic cholecystectomy Hx of colonoscopy Hx of esophagogastroduodenoscopy Hx of submandibular gland removal Family History Family History Sibling Hypertension Family history of malignant neoplasm Other Family history of lung disease Social History Social History Second hand tobacco smoke exposure: No Alcohol intake: never Substance use: never Substance use type: does not use Living arrangements: with family Gender identity (if verbalized by the patient): Female Spiritual care concerns: No Anes - Eval Final PreProcedure Day of Procedure 08/15/21 08:49 Patient weight: thin Heart: regular rate and rhythm Lungs: clear to auscultation Airway: Mallampati scale class II Neurological: alert and oriented Last oral intake: >/= 8 hours ASA classification: III Emergent: no Anesthetic plan: proceed Anesthesia type and monitoring: general GIVS and standard monitoring Results Review: All pre-operative results and documents have been reviewed as part of the pre-operative evaluation. Informed Consent: The patient's anesthetic plan and its attendant risks and benefits were discussed with the patient/family/POA. Questions were solicited and answers provided to the satisfaction of the patient/family/POA.
[2021-08-15 09:21] VITALS: BP 85/52; PULSE 64; RESP 14; O2SAT 96
[2021-08-15 09:31] VITALS: BP 124/73; PULSE 71; RESP 21; O2SAT 100
[2021-08-15 09:41] VITALS: BP 113/69; PULSE 67; RESP 18; O2SAT 99
== END 2021-08-15 09:50 | disposition home or self-care (01) ==
PROVIDERS: PCP Family Medicine; Visit Provider Internal Medicine Gastroenterology
PROC: 0DJ08ZZ Inspection of Upper Intestinal Tract, Via Natural or Artificial Opening Endoscopic (ICD-10-PCS; CPT 43235; principal; 2021-08-15 09:30)
DX: R10.12 Left upper quadrant pain (principal); R63.0 Anorexia; I10 Essential (primary) hypertension; E78.5 Hyperlipidemia, unspecified; M79.7 Fibromyalgia; D64.9 Anemia, unspecified; F41.8 Other specified anxiety disorders; J45.20 Mild intermittent asthma, uncomplicated; K76.0 Fatty (change of) liver, not elsewhere classified; K21.9 Gastro-esophageal reflux disease without esophagitis; M15.0 Primary generalized (osteo)arthritis; Z68.1 Body mass index [BMI] 19.9 or less, adult
CPT/HCPCS: 43239; 88305; J2704; J7120

== ENCOUNTER 2021-08-23 09:48 | Outpatient (CLI) | payer MEDICARE, OTHER, SELFPAY ==
--- NOTE | ~2021-08-23 | US_ITS ---
US abdomen complete EXAMINATION: US Abdomen Complete INDICATION: Left upper quadrant pain PROCEDURE: Realtime High Resolution abdomen ultrasound. COMPARISON: No prior studies for comparison FINDINGS: Gallbladder is surgically absent. Common bile duct measures 3.5 mm mm. Liver echotexture within normal limits without focal mass. Pancreas within normal limits. Pancreati c tail is obscured by bowel gas. Spleen is unremarkeable. Renal echotexture is within normal limits bilaterally without hydronephrosis, contour deforming mass or renal stone. Right kidney measures 10.8 cm. Left kidney measures 10.7 cm. Visualized aspects of the aorta and IVC are within normal limits. Portal vein is patent. No sonograph ic Nino's sign indicated by the technologist. IMPRESSION: 1: Unremarkable abdominal ultrasound status post cholecystectomy. Reviewed, dictated and finalized at location B. ROAD [employer]
== END 2021-08-23 09:49 | disposition home or self-care (01) ==
LOC: ANHIMG 09:50
PROVIDERS: PCP Family Medicine; Visit Provider Internal Medicine Gastroenterology
DX: R10.12 Left upper quadrant pain (principal); G89.29 Other chronic pain; R63.0 Anorexia
CPT/HCPCS: 76700

== ENCOUNTER 2021-08-27 12:38 | Outpatient (CLI) | payer MEDICARE, OTHER, SELFPAY ==
--- NOTE | ~2021-08-27 | US_ITS ---
EXAMINATION: US soft tissue head and neck EXAM DATE: 08/27/2021 13:36 INDICATION: Neck pain, prior left submandibular gland removed 2012. TECHNIQUE: Multiple grayscale and Doppler images of the symptomatic submandibular region were obtaine d (by a technologist who performed the scan) and subsequently reviewed. Correlation is made to neck C T from 05/17/2020 FINDINGS: Scanning in the left submandibular region area of concern demonstrated unremarkable fat symmetric to the contralateral side. No regional lymphadenopathy mass or other abnormality was identified. IMPRESSION: 1. Unremarkable ultrasound exam. Reviewed, dictated and finalized at location B. DRIVER
== END 2021-08-27 12:39 | disposition home or self-care (01) ==
PROVIDERS: PCP Family Medicine; Visit Provider Family Medicine
DX: R59.0 Localized enlarged lymph nodes (principal)
CPT/HCPCS: 76536

== ENCOUNTER 2021-10-26 13:30 | Outpatient (CLI) | payer MEDICARE, OTHER, SELFPAY ==
--- NOTE | ~2021-10-26 | XR_ITS ---
XR skull min 4V DATE: 10/26/2021 13:58 INDICATION: Fall. Left facial bruising TECHNIQUE: 5 views COMPARISON: None FINDINGS: No skull fracture or bone destruction is detected. The paranasal sinuses and mastoid air cells are unremarkable. Normal sella turcica. Moderate cervical degenerative disc disease. IMPRESSION: No skull fracture Reviewed, dictated and finalized at location A. IMPRESSION: No skull fracture
== END 2021-10-26 13:31 | disposition home or self-care (01) ==
LOC: ANHIMG 13:37
PROVIDERS: PCP Family Medicine; Visit Provider Family Medicine
DX: R51.9 Headache, unspecified (principal)
CPT/HCPCS: 70260

== ENCOUNTER 2022-01-17 10:32 | Emergency (ER) | payer MEDICARE, OTHER, SELFPAY ==
[2022-01-17] VITALS (15 sets, daily range): BP systolic 95–163; BP diastolic 55–102; PULSE 75–95; RESP 13–22; TEMP 36.8; O2SAT 94–100
--- NOTE | ~2022-01-17 | CT_ITS ---
EXAMINATION: CT brain wo con DATE: 01/17/2022 11:27 INDICATION: Fall with head injury and facial/orbital swelling TECHNIQUE: Computed tomography (CT) of the head was performed without intravenous contrast. Sagittal and coronal reconstructions were performed. The mA was adjusted according to patient size. Iterative reconstruction technique was employed. The dose-length product was 529.67 mGy-cm. COMPARISON: head CT dated 01/20/2019 FINDINGS: No calvarial fracture. No acute intracranial hemorrhage, acute infarction or abnormal extra axial flu id collection. There is mild scattered white matter hypoattenuation which is within normal limits for age and likely sequela of chronic small vessel ischemic disease. Ventricles are normal and symmetri c. No mass/mass effect. The visualized portions of the orbits, paranasal sinuses and mastoid air cell s are normal. Intracranial calcified cerebral atherosclerosis is noted. IMPRESSION: 1. Normal aging brain. No acute intracranial process. Reviewed, dictated and finalized at location A.
--- NOTE | ~2022-01-17 | XR_ITS ---
EXAMINATION: XR chest 1V 01/17/2022 11:40 INDICATION: Chest pain after fall PROCEDURE: AP view of the chest COMPARISON: Comparison to multiple prior studies sequentially, with oldest reviewed study dated 01/2018. FINDINGS: The lungs are clear. The cardiomediastinal silhouette is within normal limits. There are no pleural effusions. There is no pneumothorax suspected. The lungs are hyperinflated which is cons istent with, but not diagnostic of chronic obstructive pulmonary disease. IMPRESSION: 1: NO ACUTE CARDIOPULMONARY DISEASE. Reviewed, dictated and finalized at location L.
--- NOTE | ~2022-01-17 | XR_ITS ---
XR hip BI 2V w AP pelvis DATE: 01/17/2022 11:40 INDICATION: Fall. Pelvis and bilateral hip trauma. TECHNIQUE: AP pelvis. AP and lateral views of each hip. COMPARISON: None FINDINGS: No pelvic fracture. Normal alignment at the pubic symphysis and sacroiliac joints. No fracture or dislocation, avascular necrosis or bone destruction of either hip. IMPRESSION: No pelvic or left or right hip fracture or dislocation Reviewed, dictated and finalized at location B.
--- NOTE | ~2022-01-17 | CT_ITS ---
EXAMINATION: CT facial & cervical spine wo DATE: 01/17/2022 11:27 INDICATION: Fall; Head injury. Loss of consciousness. Laceration to right eyelid. TECHNIQUE: Computed tomography (CT) of the facial bones and maxillofacial region was performed withou t intravenous contrast. Automated exposure control and iterative reconstruction technique were employ ed. Exam dose: 130.45 mGy-cm total exam DLP. COMPARISON: None. FINDINGS: There is mild right frontal cephalhematoma, moderate peribronchial soft tissue swelling and subcutaneous emphysema and prominent right maxillary soft tissue thickening. There are slightly displaced bilateral nasal plate fractures. There is a slight right orbital floor fracture. Small fluid level in the right maxillary sinus. No other facial fracture is detected. The frontozygomatic sutures, zygomatic arches and remainder of the facial bones are intact. There is reversal of cervical curvature, which may be due to muscle spasm. There is moderate degener ative disc disease of the cervical spine. No fracture, dislocation or locked facet or prevertebral s oft tissue swelling. IMPRESSION: Virtually nondisplaced right orbital floor fracture Bilateral slightly displaced nasal plate fractures Mild right frontal cephalhematoma, right periorbital soft tissue swelling and subcutaneous emphysema and prominent right pre-maxillary soft tissue swelling Reversal of cervical curvature; no fracture or dislocation of cervical spine Moderate degenerative disc disease of cervical spine Reviewed, dictated and finalized at Location A. Reviewed, dictated and finalized at location B. IMPRESSION: Virtually nondisplaced right orbital floor fracture Bilateral slightly displaced nasal plate fractures Mild right frontal cephalhematoma, right periorbital soft tissue swelling and s ubcutaneous emphysema and prominent right pre-maxillary soft tissue swelling Reversal of cervical curvature; no fracture or dislocation of cervical spine Moderate degenerative disc disease of cervical spine
--- NOTE | 2022-01-17 10:45 | ED.HEATRA ---
HPI - Head Injury General Chief complaint: Head Injury <PAWEL Cottrell Last Filed: 01/17/22 20:22> Stated complaint: glf loc+ <PAWEL Cottrell Last Filed: 01/17/22 20:22> Time Seen by Provider: 01/17/22 10:35 <PAWEL Cottrell Last Filed: 01/17/22 20:22> Source: patient and EMS <PAWEL Cottrell Last Filed: 01/17/22 20:22> Mode of arrival: EMS <PAWEL Cottrell Last Filed: 01/17/22 20:22> Limitations: clinical condition <PAWEL Cottrell Last Filed: 01/17/22 20:22> History of Present Illness HPI Narrative: Patient is a 76 y/o female who presents to the ED via EMS with c/o fall and head injury. Per EMS report, patient was recently started on a new medication for anxiety but has been having issues with nausea and vomiting, thought to be side effect of the medication. She states she went to the bathroom this morning and felt like she needed to vomit. This is last thing she remembers. EMS reported it appeared as though she was walking out of the bathroom and tripped on a rug. Sustained head injury with LOC, lacerations to right eyelid/eyebrow. She is able to open her right eye and denies blurry vision. Upon EMSs arrival, patient was initially altered, but became more alert and oriented en route. She did develop epistaxis en route which was controlled with nasal clamp. Patient is unable to tell me much further how the fall occurred. Denies any abdominal pain, chest pain, or difficulty breathing. <PAWEL Cottrell Last Filed: 01/17/22 20:22> Related Data Home medications: Home Medications Medication Instructions Recorded Confirmed ferrous sulfate 325 mg (65 mg 325 mg PO DAILY 07/31/21 09/24/21 iron) tablet amlodipine 5 mg tablet 5 mg PO DAILY 08/10/21 09/24/21 diclofenac sodium 75 mg 75 mg PO BID PRN Pain 08/10/21 09/24/21 tablet,delayed release famotidine 40 mg tablet 40 mg PO HS 08/10/21 09/24/21 gabapentin 300 mg capsule 600 mg PO QNOON 08/10/21 09/24/21 lidocaine HCl 2 % mucosal solution 5 ml PO Q3-4H PRN Mouth Pain 08/10/21 09/24/21 (Lidocaine Viscous) pantoprazole 40 mg tablet,delayed 40 mg PO QAM 08/10/21 09/24/21 release <Gloria Marin PA-C - Last Filed: 01/17/22 20:22> Allergies/Adverse reactions: Allergies Allergy/AdvReac Type Severity Reaction Status Date / Time adhesive Allergy Mild Rash/Irrita Verified 01/17/22 12:33 tion amitriptyline Allergy Unknown Dizziness Verified 09/21/21 12:58 nortriptyline Allergy Unknown Constipatio Verified 09/21/21 12:58 n Opioids - Morphine Analogues Allergy Unknown Dizziness Verified 09/21/21 12:58 codeine AdvReac Mild NAUSEA Verified 09/21/21 12:58 Sulfa (Sulfonamide AdvReac Mild Nausea and Verified 09/21/21 12:58 Antibiotics) Vomiting <Gloria Marin PA-C - Last Filed: 01/17/22 20:22> Review of Systems Review of Systems: EYES: Denies blurry vision. ENT: Reports epistaxis. CARDIOVASCULAR: Denies chest pain. RESPIRATORY: Denies dyspnea. GASTROINTESTINAL: Reports N/V. Denies abdominal pain. SKIN: Reports lacerations to R eyelid/eyebrow. NEUROLOGIC: Reports HI, LOC. <Gloria Marin PA-C - Last Filed: 01/17/22 20:22> All systems reviewed & are unremarkable except as noted in HPI and below <Gloria Marin PA-C - Last Filed: 01/17/22 20:22> PMFSH Past Medical History Medical History: Medical History Anemia Anorexia Anxiety Arthritis Asthma, mild intermittent Back pain Chronic GERD Chronic jaw pain Chronic LUQ pain Chronic narcotic use Depression Fibromyalgia Gastric ulcer Generalized osteoarthritis of multiple sites HLD (hyperlipidemia) HTN (hypertension) Inflammatory arthritis Leg pain Lumbar disc disease NAFLD (nonalcoholic fatty liver disease) Osteoporosis Sclerosing bone dysplasia (~2018) <Gloria Marin PA-C - Last Filed: 01/17/22 20:22> Surgical History Surgical His
--- NOTE | 2022-01-17 10:48 | PC.NURSE ---
pt. unable to verify allergies or meds except a daily ASA when asked about blood thinners. Awaiting spouse to arrive.
--- NOTE | 2022-01-17 10:50 | ECG_ITS ---
Measurements Intervals [place] Rate: 83 P: 68 MI: 222 QRS: 50 QRSD: 82 T: 42 QT: 383 QTc: 450 Interpretive Statements SINUS RHYTHM WITH FIRST DEGREE AV BLOCK ATRIAL PREMATURE COMPLEX BASELINE ARTIFACT- I, II, III, AVR, AVL ABNORMAL ECG Electronically Signed On 01-17-2022 16:16:25 CDT by Alex Anthony D.O.
[2022-01-17 11:13] LABS: Basophils Percent Auto 0.1 % (0.2-1.2); Eosinophils Percent Auto 0.1 % (0-4.4); Hematocrit 34.6 % (37.0-47.0); Hemoglobin 11.3 g/dL (12.0-15.0); Immature Granulocyte Absolute 0.11 K/mm3 (0.00-0.031); Immature Granulocyte Percent A 1.6 % (0-0.5); Lymphocytes Absolute Auto 1.22 K/mm3 (0.9-3.2); Lymphocytes Percent Auto 17.3 % (18.3-44.2); Mean Corpuscular HGB Conc 32.7 g/dl (32-36); Mean Corpuscular Hemoglobin 28.3 pg (26-34); Mean Corpuscular Volume 86.5 fl (80-100); Mean Platelet Volume 9.3 fl (7.4-10.4); Monocytes Absolute Auto 0.4 K/mm3 (0.1-0.6); Monocytes Percent Auto 5.8 % (2.6-8.5); Neutrophils Absolute Auto 5.3 K/mm3 (1.3-6.7); Neutrophils Percent Auto 75.1 % (45.5-73.1); Platelet Count Result 146 k/mm3 (150-375); Red Cell Distribution Width 13.1 % (11.5-14.5); White Blood Count 7.1 K/mm3 (4.5-10.0)
[2022-01-17 11:24] LABS: Alanine Aminotransferase 29 U/L (6-35); Albumin Level 4.9 g/dL (3.5-5.1); Alkaline Phosphatase 45 U/L (38-126); Anion Gap 8 mmol/L (8-16); Aspartate Amino Transferase 36 U/L (14-36); Bilirubin,Total 0.7 mg/dL (0.2-1.3); Blood Urea Nitrogen 14 mg/dL (7-17); Calcium 8.9 mg/dL (8.4-10.2); Carbon Dioxide 28 mmol/L (22-30); Chloride 95 mmol/L (98-107); Estimated CRCL calculation 47 ml/min; Estimated Glomerular Filt Rate > 60; Glucose 128 mg/dL (65-110); Lipase 130 U/L (23-300); Potassium 3.3 mmol/L (3.4-5.0); Sodium 131 mmol/L (137-145)
--- NOTE | 2022-01-17 11:24 | PC.NURSE ---
pt. in radiology. Tooth fragment in toothsaver kit, labeled, date and time, given to spouse.
[2022-01-17 11:26] LABS: Appearance Urine Cloudy (Clear); Bilirubin Urine Negative (Negative); Blood Urine Negative (Negative); Color Urine Yellow (Yellow); Glucose Urine UA Negative (Negative); Ketones Urine 1+ mg/dL (Negative); Leukocyte Esterase Ur Negative LEU/UL (Negative); Nitrate Urine Negative (Negative); Protein Urine Negative (Negative); Urobilinogen Urine 0.2 mg/dL (<2.0); pH Urine 8.5 (5.0-9.0)
--- NOTE | 2022-01-17 11:27 | PC.NURSE ---
1125 care transferred to ALEJANDRINA Castro
[2022-01-17 11:36] LABS: Amorphous Sediment Urine Few; Mucus Urine Rare /lpf; WBC Urine 0-3 /hpf
[2022-01-17 11:38] LABS: Add Urine Microscopic? YES
[2022-01-17] MEDS: ONDANSETRON INJ 4 MG/2 ML VIAL IV PUSH (13:42)
--- NOTE | 2022-01-17 13:54 | PC.NURSE ---
This RN went into ED room to perform visual acuity on patient. Patient states she wears glasses but does not have them with her. Patient reports she is able to see out of her right eye even with the swelling surrounding the eye. Patient also reported her abdomen hurts. Patient then began to have multiple episodes of emesis. NEEL Castro aware. Patient given 4mg Zofran. Patient cleaned up and assisted back into bed. Per NEEL Castro, no further interventions at this time.
[2022-01-17 14:49] LABS: SARS-CoV-2 RNA PCR Negative
[2022-01-17] MEDS: POTASSIUM CHLORIDE 20 MEQ TABLET 40 MEQ PO (16:16)
== END 2022-01-17 17:32 | disposition home or self-care (01) ==
PROVIDERS: Physician Assistant; Emergency Provider General Practice; PCP Family Medicine
DX: S02.2XXA Fracture of nasal bones, initial encounter for closed fracture (principal); S02.31XA Fracture of orbital floor, right side, initial encounter for closed fracture; S01.111A Laceration without foreign body of right eyelid and periocular area, initial encounter; Z20.822 Contact with and (suspected) exposure to COVID-19; J45.20 Mild intermittent asthma, uncomplicated; E78.5 Hyperlipidemia, unspecified; I10 Essential (primary) hypertension; K21.9 Gastro-esophageal reflux disease without esophagitis; K76.0 Fatty (change of) liver, not elsewhere classified; F41.9 Anxiety disorder, unspecified; F32.A Depression, unspecified; M79.7 Fibromyalgia; M81.0 Age-related osteoporosis without current pathological fracture; M50.30 Other cervical disc degeneration, unspecified cervical region; W18.09XA Striking against other object with subsequent fall, initial encounter
CPT/HCPCS: 12013; 36415; 51701; 70450; 70486; 71045; 72125; 73521; 80053; 81001; 83690; 85025; 93005; 96374; 96375; 99284; A9270; C9803; J0131; J2405; U0003; U0005

== ENCOUNTER 2022-04-02 14:02 | Outpatient (CLI) | payer MEDICARE, OTHER, SELFPAY ==
[2022-04-02 18:51] LABS: Basophils Percent Auto 0.4 % (0.2-1.2); Eosinophils Percent Auto 0.4 % (0-4.4); Hemoglobin 11.3 g/dL (12.0-15.0); Immature Granulocyte Absolute 0.04 K/mm3 (0.00-0.031); Immature Granulocyte Percent A 0.8 % (0-0.5); Lymphocytes Absolute Auto 1.99 K/mm3 (0.9-3.2); Lymphocytes Percent Auto 39.7 % (18.3-44.2); Mean Corpuscular HGB Conc 32.3 g/dl (32-36); Mean Corpuscular Hemoglobin 28.6 pg (26-34); Mean Corpuscular Volume 88.6 fl (80-100); Mean Platelet Volume 9.8 fl (7.4-10.4); Monocytes Absolute Auto 0.4 K/mm3 (0.1-0.6); Neutrophils Absolute Auto 2.5 K/mm3 (1.3-6.7); Neutrophils Percent Auto 50.7 % (45.5-73.1); Platelet Count Result 163 k/mm3 (150-375); Red Blood Count 3.95 M/mm3 (4.2-5.4)
[2022-04-02 19:46] LABS: Vitamin D 25 Hydroxy 66.1 ng/mL
[2022-04-02 19:58] LABS: Alanine Aminotransferase 26 U/L (6-35); Alkaline Phosphatase 43 U/L (38-126); Anion Gap 15 mmol/L (8-16); Aspartate Amino Transferase 34 U/L (14-36); Bilirubin,Total 0.5 mg/dL (0.2-1.3); Blood Urea Nitrogen 17 mg/dL (7-17); Calcium 9.5 mg/dL (8.4-10.2); Carbon Dioxide 27 mmol/L (22-30); Chloride 98 mmol/L (98-107); Cholesterol 230 mg/dL (0-200); Estimated Glomerular Filt Rate > 60; Glucose 95 mg/dL (65-110); HDL Direct 74 mg/dL; Potassium 3.3 mmol/L (3.4-5.0); Sodium 140 mmol/L (137-145); Triglycerides 158 mg/dL (<150)
[2022-04-02 20:08] LABS: LDL Cholesterol Direct 108 mg/dL
== END 2022-04-02 14:03 | disposition home or self-care (01) ==
LOC: ANHGOSHLAB 14:06
PROVIDERS: PCP Family Medicine; Visit Provider Family Medicine
DX: D64.9 Anemia, unspecified (principal); M81.0 Age-related osteoporosis without current pathological fracture; I10 Essential (primary) hypertension
CPT/HCPCS: 36415; 80053; 80061; 82306; 82728; 85025

== ENCOUNTER 2022-05-29 11:23 | Outpatient (CLI) | payer MEDICARE, OTHER, SELFPAY ==
--- NOTE | ~2022-05-29 | CT_ITS ---
EXAMINATION: CT soft tissue neck w con DATE: 05/29/2022 12:01 INDICATION: Submandibular mass. TECHNIQUE: Computed tomography (CT) of the neck was performed with 75 mL Omnipaque-350 intravenous co ntrast. Automated exposure control and iterative reconstruction technique were employed. The dose-christian gth product was 362.30 mGy-cm. COMPARISON: Neck CT 05/17/2020 FINDINGS: There is a 3 mm nodule at left lung upper lobe, likely benign. There is a right posterolate ral tracheal diverticulum at the thoracic inlet. There is a dystrophic calcification in right thyroid lobe. There is mild plaque in the proximal internal arteries with 0% stenosis relative to normal dis kenia artery lumen diameters. There are changes of left submandibular gland resection. There are no pat hologically enlarged lymph nodes. There is moderate cervical spondylosis. There is mild chronic heigh t loss of multiple vertebral bodies. IMPRESSION: 1. No abnormal mass or lymphadenopathy. Reviewed, dictated and finalized at location A. [employer]ING [employer]GER
[2022-05-29 11:51] LABS: Estimated Glomerular Filt Rate > 60
== END 2022-05-29 11:24 | disposition home or self-care (01) ==
PROVIDERS: PCP Family Medicine; Visit Provider Physician Assistant
DX: R22.0 Localized swelling, mass and lump, head (principal)
CPT/HCPCS: 70491; Q9967

== ENCOUNTER 2022-11-27 10:26 | Outpatient (CLI) | payer MEDICARE, OTHER, SELFPAY ==
--- NOTE | ~2022-11-27 | MR_ITS ---
EXAMINATION: MR knee LT wo con DATE: 11/27/2022 11:25 INDICATION: Left knee pain TECHNIQUE: Magnetic resonance imaging (MRI) of the left knee was performed without intravenous contra st. Sequences included coronal PD-weighted FSE, coronal PD-weighted FS FSE, sagittal T2-weighted FSE , sagittal PD-weighted FS FSE and axial PD weighted fat saturated FSE. COMPARISON: None. FINDINGS: Medial compartment: Linear increased signal extending vertically to contact the inferior articular surface of the body of the medial meniscus seen on only a single coronal image coronal series 3 4 & 5, image 14 which is murillo spicious for but does not meet strict MRI criteria for definitive meniscal tear. Articular cartilage is normal. Lateral compartment: Lateral meniscus is normal. Articular cartilage is normal. Patellofemoral compartment: Articular cartilage is normal. Ligaments and tendons: Anterior and posterior cruciate ligaments are normal. The medial collateral ligament and fibular josé miguel ateral ligament complex are normal. The extensor mechanism is normal. The visualized medial and later al hamstring tendons as well as the iliotibial band are normal. Fluid: Very small left knee joint effusion at the suprapatellar pouch. No loose osteochondral bodies identif ied. Osseous/other: Mild patchy red marrow reexpansion in the distal femoral metaphysis. No fracture or pathologic marrow replacing process. Edema in the superficial suprapatellar fat pad which can be seen with fat pad imp ingement syndrome IMPRESSION: 1. Suspicion for a vertical tear extending to the inferior articular surface at the medial meniscal b manasa which is only seen on a single coronal image which does not meet strict MRI criteria for meniscal tear and this remains equivocal. 2. Edema at the superficial suprapatellar fat pad which can be seen with fat pad impingement syndrome . Reviewed, dictated and finalized at location B. IMPRESSION: 1. Suspicion for a vertical tear extending to the inferior articular surface at the medial meniscal body which is only seen on a single coronal image which do es not meet strict MRI criteria for meniscal tear and this remains equivocal. 2. Edema at the superficial suprapatellar fat pad which can be seen with fat pa d impingement syndrome.
== END 2022-11-27 10:27 | disposition home or self-care (01) ==
PROVIDERS: PCP Family Medicine; Visit Provider Internal Medicine
DX: M25.562 Pain in left knee (principal); M79.10 Myalgia, unspecified site
CPT/HCPCS: 73721

== ENCOUNTER 2023-05-19 12:55 | Outpatient (CLI) | payer MEDICARE, OTHER, SELFPAY ==
--- NOTE | ~2023-05-19 | MR_ITS ---
EXAMINATION: MR lumbar spine wo con DATE: 05/19/2023 13:41 INDICATION: Radiculopathy, lumbar region. TECHNIQUE: Magnetic resonance imaging (MRI) of the lumbar spine was performed without intravenous con trast. Sequences included sagittal T2-weighted FSE, sagittal T2-weighted FS FSE, sagittal T1-weighted FSE, and axial T2-weighted FSE. COMPARISON: Lumbar spine MRI 08/08/2021 FINDINGS: There is 5 degrees dextrocurvature of thoracolumbar spine. There is 3 mm anterolisthesis of L3 on L4. Vertebral body heights are normal. There is moderately decreased disc height at L3-L4, mil dly decreased disc height at L4-L5, and severely decreased disc height at L5-S1. The distal spinal co rd signal intensity is normal. The conus medullaris is at T12-L1. The following disc levels are speci fically discussed: L1-L2: There is a central protrusion. There is mild right and moderate left facet joint osteoarthriti s. There is no neural foraminal stenosis. There is mild central canal stenosis. L2-L3: The disc is mildly bulging. There is mild right and moderate left facet joint osteoarthritis. There is mild bilateral neural foraminal stenosis. There is no central canal stenosis. L3-L4: The disc is bulging and has an annular fissure. There is severe bilateral facet joint osteoart hritis. There is mild bilateral neural foraminal stenosis. There is mild central canal stenosis. Ther e is posterior decompression. L4-L5: The disc is bulging and has an annular fissure. There is mild bilateral facet joint osteoarthr itis. There is mild bilateral neural foraminal stenosis. There is mild central canal stenosis with po sterior decompression. L5-S1: The disc is bulging and has an annular fissure. There is mild bilateral facet joint osteoarthr itis. There is moderate bilateral neural foraminal stenosis. There is mild central canal stenosis. IMPRESSION: 1. Severe lower lumbar spondylosis, stable from 08/08/2021. Reviewed, dictated and finalized at location E. R SLAGMAN
== END 2023-05-19 12:56 | disposition home or self-care (01) ==
LOC: ANHIMG 12:59
PROVIDERS: PCP Family Medicine; Visit Provider Physician Assistant
DX: M47.26 Other spondylosis with radiculopathy, lumbar region (principal)
CPT/HCPCS: 72148

== ENCOUNTER 2023-10-09 13:21 | Emergency (ER) | payer MEDICARE, OTHER, SELFPAY ==
--- NOTE | ~2023-10-09 | XR_ITS ---
XR shoulder LT min 2V 10/09/2023 14:59 INDICATION: Left shoulder pain PROCEDURE: 5 views left shoulder COMPARISON: No prior studies for comparison. FINDINGS: Fracture, dislocation or subluxation is not identified. The soft tissues appear within norm al limits. No foreign bodies are identified. IMPRESSION: 1: NO ACUTE BONE OR JOINT ABNORMALITY IDENTIFIED. Reviewed, dictated and finalized at location A.
--- NOTE | ~2023-10-09 | XR_ITS ---
[XR ribs LT 2V w CXR 2V ] INDICATION: Left rib pain TECHNIQUE: Frontal projection of the upper left ribs, frontal projection of the lower left ribs, obli que projection of all the left ribs, frontal inspiratory chest x-ray for interpretation. FINDINGS: There are no displaced rib fractures identified. There are no soft tissue abnormality see n. The lungs are clear. IMPRESSION: 1:No acute displaced rib fractures. Reviewed, dictated and finalized at location A.
[2023-10-09 13:22] VITALS: BP 149/87; PULSE 90; RESP 16; TEMP 35.9; O2SAT 98
[2023-10-09 14:16] VITALS: BP 140/78; PULSE 87; RESP 17; TEMP 36.2; O2SAT 99
--- NOTE | 2023-10-09 14:36 | ED.UPPEXIN ---
HPI - Extremity Injury (Upper) General Chief Complaint: Extremity Injury, Upper Stated Complaint: flank pain Time Seen by Provider: 10/09/23 14:02 History of Present Illness HPI narrative: 78-year-old female history of osteoarthritis and osteoporosis presents to the emergency room for evaluation of left shoulder and his left upper ribcage pain. Patient states the pain came on suddenly last night. Pain is aggravated with movements of the shoulder and inspiration, and reports no loss of strength. Denies any known injury or trauma. States took ibuprofen with no improvement Related Data Home Medications Medication Instructions Recorded Confirmed clonazepam 0.5 mg tablet 0.5 mg PO DAILY PRN Anxiety 02/14/23 05/06/23 Allergies Allergy/AdvReac Type Severity Reaction Status Date / Time adhesive Allergy Mild Rash/Irrita Verified 06/17/23 11:43 tion amitriptyline Allergy Unknown Dizziness Verified 06/17/23 11:43 duloxetine Allergy Unknown Vomiting Verified 06/17/23 11:43 nortriptyline Allergy Unknown Constipatio Verified 06/17/23 11:43 n Opioids - Morphine Analogues Allergy Unknown Dizziness Verified 06/17/23 11:43 codeine AdvReac Mild NAUSEA Verified 06/17/23 11:43 Sulfa (Sulfonamide AdvReac Mild Nausea and Verified 06/17/23 11:43 Antibiotics) Vomiting Review of Systems Review of Systems: CONSTITUTIONAL: Denies fever, chills, or sweats. EYES: Denies visual changes, redness, or discharge. ENT: Denies rhinorrhea, congestion, sore throat, or otalgia. CARDIOVASCULAR: Denies chest pain, palpitations, or edema. RESPIRATORY: Denies cough or dyspnea. GASTROINTESTINAL: Denies abdominal pain, nausea, vomiting, or diarrhea. GENITOURINARY: Denies dysuria or hematuria. SKIN: Denies rash or itching. MUSCULOSKELETAL: Reports left shoulder pain left lateral chest wall NEUROLOGIC: Denies headache, numbness, dizziness, or weakness. PSYCHIATRIC: Denies anxiety or depression. [facility] Past Medical History Medical History Anemia Anorexia Anxiety Arthritis Asthma, mild intermittent Chronic GERD Chronic jaw pain Chronic LUQ pain Chronic narcotic use COVID-19 Depression Fibromyalgia Gastric ulcer Generalized osteoarthritis of multiple sites HLD (hyperlipidemia) HTN (hypertension) Inflammatory arthritis Mouth sore Myalgia NAFLD (nonalcoholic fatty liver disease) Osteoporosis Sclerosing bone dysplasia (~2018) Trigeminal neuralgia of left side of face Surgical History Surgical History History of back surgery 2007 Hx laparoscopic cholecystectomy Hx of colonoscopy Hx of esophagogastroduodenoscopy Family History Family History Sibling Hypertension Family history of malignant neoplasm Other Family history of lung disease Social History Social History Smoking status: Never smoker Second hand tobacco smoke exposure: No Alcohol intake: never Substance use: never Substance use type: does not use Lack of Transportation: No Lack of Food: Never True Current Housing: I Have Housing Concerned About Future Housing: No Difficulty Paying Gas/Electric Bills: No Difficulty Paying for Meds: No Currently Unemployed: No Education: Master's Degree or Higher Difficulty w/ Childcare or Family Care: Decline to Answer Living arrangements: with family Gender identity (if verbalized by the patient): Female Spiritual care concerns: No Exam Narrative: GENERAL: Well-appearing, well-nourished, no physical limitations, and in no acute distress. HEAD: Normocephalic, atraumatic. EYES: Conjunctivae normal, PERRLA and EOMI.y CHEST: Clear to auscultation. No respiratory distress. No wheezes rales or rhonchi. Tenderness to the left upper lateral chest wall HEART: Regular rate a
== END 2023-10-09 16:07 | disposition home or self-care (01) ==
PROVIDERS: Emergency Provider Nurse Practitioner Family; PCP Family Medicine
DX: M62.838 Other muscle spasm (principal); I10 Essential (primary) hypertension; E78.5 Hyperlipidemia, unspecified; J45.20 Mild intermittent asthma, uncomplicated; K21.9 Gastro-esophageal reflux disease without esophagitis; M19.90 Unspecified osteoarthritis, unspecified site; M81.0 Age-related osteoporosis without current pathological fracture; M79.7 Fibromyalgia; F41.9 Anxiety disorder, unspecified; F32.A Depression, unspecified; Z86.2 Personal history of diseases of the blood and blood-forming organs and certain disorders involving the immune mechanism; Z86.16 Personal history of COVID-19; Z90.49 Acquired absence of other specified parts of digestive tract
CPT/HCPCS: 71046; 71100; 73030; 99284

== ENCOUNTER 2024-09-17 10:02 | Outpatient (CLI) | payer MEDICARE, SELFPAY ==
--- NOTE | ~2024-09-17 | CT_ITS ---
EXAMINATION: CT soft tissue neck w con DATE: 09/17/2024 10:27 INDICATION: Neck pain TECHNIQUE: Computed tomography (CT) of the neck was performed with 75 mL Omnipaque-350 intravenous co ntrast. Automated exposure control and iterative reconstruction technique were employed. Exam dose: 293.66 mGy-cm total exam DLP. COMPARISON: 05/29/2022 CT soft tissue neck FINDINGS: Intracranial left vertebral artery and bilateral carotid siphon internal carotid artery anabel cifications. Mild calcified plaque at the carotid bulbs and proximal internal carotid artery, left greater than ri ght, without any significant luminal stenosis, occlusion or dissection. 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 Right submandibular gland and parotid g lands are unremarkable. A 4 mm right lobe dense calcification is noted, not likely of clinical signif icance. No suspicious thyroid lesion. No cervical mass lesion or lymphadenopathy. No superior mediastinal mass lesion or lymphadenopathy. The included upper lung zones are clear. The mastoid air cells and paranasal sinuses appear well-developed and aerated. There is reversal of cervical curvature. There is moderately prominent degenerative disease and anter ior spurring at C3-4, C4-5, C5-6 and moderately severe degenerative disease at C6-7. There is chronic mild anterior wedging at T1 and mild cupping of the superior vertebral endplates at T3, T4 and T6. No cervical spine fracture, dislocation or locked facet or prevertebral soft tissue sw elling. Normal epiglottis. IMPRESSION: Status post left submandibular gland resection No cervical mass lesion or lymphadenopathy Reversal of cervical curvature multilevel degenerative disc disease of the cervical spine Mild chronic compression deformities of the upper thoracic spine. Reviewed, dictated and finalized at [facility]. Reviewed, dictated and finalized at [facility]. IMPRESSION: Status post left submandibular gland resection No cervical mass lesion or lymphadenopathy Reversal of cervical curvature multilevel degenerative disc disease of the cerv ical spine Mild chronic compression deformities of the upper thoracic spine.
[2024-09-17 10:22] LABS: Estimated Glomerular Filt Rate > 60
--- OUTSIDE RECORDS SUMMARY | 2024-09-17 11:06 | XMS_ITS | Clinical Summary ---
Author Organization [facility] Address [address] [place] [address] Phone Care Team Providers Care Residential Roofer Name Role Phone Marcellus Damon MD Primary Care Provider [phone] Dmitriy Pak DO Unavailable [phone] Allergies Active Allergy Reactions Criticality Noted Date Comments Adhesive Tape Unknown 04/08/2016 Amitriptyline Vomiting 04/16/2019 Dizzy and vomiting Codeine Unknown 04/08/2016 Morphine Vomiting 04/16/2019 Dizzy and vomiting Sulfa Antibiotics Unknown 04/08/2016 Medications bisacodyl EC (DULCOLAX) 5 MG Tablet Delayed Response Take 5 mg by mouth daily as needed for Constipation . Active clobetasol (TEMOVATE) 0.05 % Gel Apply 50 g as needed. Active Lidocaine HCl (LIDOCAINE VISCOUS MT) 20 mg/mL by Mouth/Throat route every 3 hours as needed. Active clonazePAM (KLONOPIN) 0.5 MG Tablet Take 0.25 mg by mouth daily. Active valsartan (DIOVAN) 80 MG Tablet Take 80 mg by mouth as needed. Active TraMADol HCl 300 MG (BIPH) TABLET SR 24 HR Take 300 mg by mouth daily. Active famotidine (PEPCID) 20 MG Tablet Take 20 mg by mouth as needed. Active gabapentin (NEURONTIN) 300 MG Capsule Take 300 mg by mouth nightly. Active zolpidem (AMBIEN) 10 MG Tablet Take 10 mg by mouth nightly as needed. Active Polyethylene Glycol 3350 (MIRALAX PO) Take by mouth. Active B Complex Vitamins (VITAMIN-B COMPLEX PO) Take by mouth. Active omeprazole (PRILOSEC) 40 MG CAPSULE DELAYED RELEASE TAKE 1 CAPSULE BY MOUTH EVERY MORNING 90 Cap 1 10/04/2019 Active Family History Medical History Relation Name Comments Breast Cancer Sister Relation Name Status Comments Sister Social History Tobacco Use Types Packs/Day Years Used Date Smoking Tobacco: Never Smokeless Tobacco: Never Alcohol Use Standard Drinks/Week Comments No 0 (1 standard drink = 0.6 oz pur e alcohol) Comments Unknown Sex and Gender Information Value Date Recorded Sex Assigned at Not on file Legal Sex Female 5:38 PM CDT Gender Identity Not on file Sexual Orientation Not on file Last Filed Vital Signs Vital Sign Reading Time Taken Comments Blood Pressure 142/86 04/16/2019 11:02 AM CDT Pulse 66 04/16/2019 11:02 AM CDT Temperature - - Respiratory Rate - - Oxygen Saturation 97% 04/16/2019 11: 02 AM CDT Inhaled Oxygen Concentration - - Weight 45.7 kg (100 lb 12.8 oz) 019 11:02 AM CDT Height - - Body Mass Index - - Plan of Treatment Health Maintenance Due Date Last Done Comments Hepatitis C Virus (HCV) Screening 1945 TdaP Immunization 1945 Pneumococcal Immunization (5 0+ years) (1 of 1 - PCV) 1997 Zoster Immunization (1 of 2) 1997 Respiratory Syncytial Virus (RSV) Immunization (Adult) (1 - 1-dose 75+ series) 2022 Influenza Immunization (#1) 02/29/202405/30, 04/08/2017 SARS-COV-2 Immunization ( season) 2024 09/29/2020, 09/08/2020 Colonoscopy High Risk Discontinued 05/17/2019 , 04/03/2016 Colonoscopy Discontinued 05/17/2019, 04/03/2016 Colorectal Cancer Screening Discontinued Cologuard Discontinued Hepatitis B Immunization Aged Out No longer eligible based on patient's age to complete this topic Immunochemical Fecal Occult Blood Discontinued Meningococcal Immunization (ACWY) Aged Out No longer eligible based on patient's age to complete this topic Rotavirus Immunization Aged Out No lo nger eligible based on patient's age to complete this topic Procedures Procedure Name Priority Date/Time Associated Diagnosis Comments HM COLONOSCOPY Routine 05/17/2019 from Last 3 Months or Most Recently Relevant to Health Maintenance Results * COLONOSCOPY (05/17/2019) Dmitriy Pak DO PROCEDURE/MINOR SURGICAL ORDERA BLES Final Result from Last 3 Months or Most Recently Relevant to Health Maintenance Insurance MEDICARE [employer] MEDICARE SUP Care Teams Residential Roofer Relationship Specialty Start Date End Date Marcellus Damon MD [address] [place] [id number] PCP - General Family Medicine 04/05/16 Dmitriy Pak DO [address] [place] [id number] Gastroenterology 04/05/16
--- OUTSIDE RECORDS SUMMARY | 2024-09-17 11:06 | XMS_ITS | Clinical Summary ---
Author Organization [facility] Administrative Offices Address [address] [place] [address] Care Team Providers Care Associate Property Manager Name Role Phone Alexis Conner MD Primary Care Provider -[phone] Social History Tobacco Use Types Packs/Day Years Used Date Smoking Tobacco: Never Assessed Comments Unknown Sex and Gender Information Value Date Recorded Sex Assigned at Not on file Legal Sex Female 3:24 AM UX LEAD Gender Identity Not on file Sexual Orientation Not on file Plan of Treatment Health Maintenance Due Date Last Done Comments DTAP/TDAP/TD VACCINES (1 - Tdap) 1966 PNEUMOCOCCAL VACCINE 50+ YEARS (1 of 1 - PCV) 05/20/19 97 ZOSTER VACCINE (1 of 2) 1997 OSTEOPOROSIS SCREENING 2012 RSV VACCINE (60+ or ) (1 - 1-dose 75+ series) 2022 INFLUENZA VACCINE (#1) 2024 Care Teams Associate Property Manager Relationship Specialty Start Date End Date Alexis Conner MD [address] [place] [phone] (Work) PCP - General 11/24/02
--- OUTSIDE RECORDS SUMMARY | 2024-09-17 11:06 | XMS_ITS | Clinical Summary ---
Author Organization [facility] Address [address] [place] [address] Care Team Providers Care Combat Systems Engineer Name Role Phone Jovani Garcia Primary Care Provider + Allergies Active Allergy Reactions Criticality Noted Date Comments Alendronate Rash Low 04/30/2017 Amitriptyline Unknown 05/10/2014 Codeine Nausea and Vomiting,Unknown Low 01/24/20 16 Duloxetine Hcl Rash Low 06/17/2018 Naproxen Unknown 05/10/2014 Sulfa Antibiotics Unknown 05/10/2014 Tape Unknown 04/08/2016 Medications gabapentin 300 MG capsule Take 300 mg by mouth. Active nystatin [id number] UNIT/ML suspension 4 Active famotidine 20 MG tablet 8 Active clonazePAM 0.5 MG tabletIndications:C urrent mild episode of major depressive disorder without prior episode Take 1 tablet (0.5 mg total) by mouth 3 (three) times daily as needed for Anxiety. PRN 90 tablet 2 8 Active traMADol 50 MG tabletIndications:C hronic low back pain, unspecified back pain laterality, with sciatica presence unspecified Take 1 tablet (50 mg total) by mouth every 6 (six) hours as needed for Pain. 120 tablet 2 8 Active Clobetasol Propionate 0.05 % Foam 4 Active Lidocaine HCl (LIDOCAINE VISCOUS MT) 20 mg/mL. Active lubiprostone (AMITIZA) 8 MCG capsule 5 Active ondansetron 4 MG disintegrating tablet 7 Active valsartan 80 MG tablet TK 1 T PO QD 0 8 Active zolpidem 10 MG tabletIndications:P rimary insomnia TAKE 1 TABLET BY MOUTH EVERY DAY AT BEDTIME 30 tablet 9 Active Active Problems Problem Noted Date Diagnosed Date Current episode of major dep ressive disorder without prior episode 04/21/2018 [employer]'s syndrome 02/24/2018 Osteopenia 08/20/2017 BMI less than 19,adult 04/08/2017 Dizziness 04/08/2017 Abnormal platelet function test ([facility] ) 11/07/2016 Thrombocytopenia 10/28/2016 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 Chronic pain 01/31/2016 Adrenal adenoma 09/21/2015 Osteoporosis, postmenopausal 08/10/2015 Mass of adrenal gland ([facility]) 07/17/2015 Esophageal reflux 05/30/2015 History of osteopenia 12/29/2014 PVD (peripheral vascular disease) 12/05/2014 Constipation 11/14/2014 Dyspnea 07/01/2014 Mouth dryness 06/10/2014 Carotid atherosclerosis 2014 Multinodular goiter 2014 Arthritis 05/10/2014 Chronic back pain 05/10/2014 Hypertension 05/10/2014 Insomnia 05/10/2014 Tinnitus 05/10/2014 Hearing loss, neural 03/10/2014 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 Immunizations Name Administration Dates Next Due Fluzone Adult - >Age 3 (Prefilled Syringe) 06/08 Influenza Adult (Generic) 04/08/2017 Family History Medical History Relation Comments Cancer Sister breast Hypertension Sister Stroke Sister Relation Status Comments Sister Social History Tobacco Use Types Packs/Day Years Used Date Smoking Tobacco: Never Smokeless Tobacco: Never Alcohol Use Standard Drinks/Week Comments No 0 (1 standard drink = 0.6 oz pur e alcohol) AUDIT-C Answer Date Recorded Frequency of Alcohol Consumption Never 06/17/2018 Average Number of Drinks Not on file 018 Frequency of Binge Drinking Not on file 05/30 Comments Unknown Sex and Gender Information Value Date Recorded Sex Assigned at Not on file Legal Sex Female 8:34 PM CDT Gender Identity Not on file Sexual Orientation Not on file Last Filed Vital Signs Vital Sign Reading Time Taken Comments Blood Pressure 124/76 06/17/2018 1:35 PM [employer] TECHNICIAN Pulse 75 06/17/2018 1:35 PM [employer] TECHNICIAN Temperature 36.1 C (97 F) 06/17/2018 1:35 PM [employer] TECHNICIAN Respiratory Rate 16 06/17/2018 1:35 PM [employer] TECHNICIAN Oxygen Saturation 94% 06/17/2018 1:35 PM [employer] TECHNICIAN Inhaled Oxygen Concentration - - Weight 45 kg (99 lb 3 oz) 06/17/2018 1:35 PM [employer] TECHNICIAN Height 161.3 cm (5' 3.5 ) 06/17/2018 1:35 PM [employer] TECHNICIAN Body Mass Index 17.29 06/17/2018 1:35 PM [employer] TECHNICIAN Plan of Treatment Health Maintenance Due Date Last Done Comments ASCVD Statin 1945 Hepatitis C 1965 DTaP, Tdap and Td Vaccines ( 1 - Tdap) 1966 Zoster Vaccines (1 of 2) 1997 Annual Medicare Wellness Visit 2012 Dexa Scan (General) 2012 Pneumococcal Vaccine: 65+ Years (1 of 1 - PCV) 2012 ASCVD LDL 04/11/2018 04/11/2017, 09/27/2016 RSV Immunization or 60+ Years (1 - 1-dose 75+ series) 2022 COVID-19 Vaccine ( - 2023-2 5 season) 2024 Influenza Adult (#1) 2024 06/08/2018, 04/08/2017 Meningococcal B Vaccine Aged Out No l onger eligible based on patient's age to complete this topic Meningococcal Vaccine Aged Out No deandre rashid eligible based on patient's age to complete this topic RSV Immunizations Under 20 Months Aged Out No longer eligible b ased on patient's age to complete this topic Procedures Procedure Name Priority Date/Time Associated Diagnosis Comments LIPID PANEL Routine 04/11/2017 11:11 AM CDT from Last 3 Months or Most Recently Relevant to Health Maintenance Results * (ABNORMAL) LIPID PANEL (04/11/2017 11:11 AM CDT) CHOLESTEROL 219(H) <200 mg/dL [facility] TO EPIC CONVERSION HDL 95 >50 mg/dL [facility] T O EPIC CONVERSION TRIGLYCERIDES 69 <150 mg/dL [facility] TO EPIC CONVERSION LDL (CALCULATED) 108(H) [facility] TO EPIC CONVERSION Comment: Result Comment: UNITS: mg/dL (calc) Reference range: <100 Desirable range <100 mg/dL for patients with CHD or diabetes and <70 mg/dL for diabetic patients with known heart disease. LDL-C is now calculated using the Neri calculation, which is a validated novel method providing better accuracy than the Friedewald equation in the estimation of LDL-C. Cody DURHAM et al. JORDAN. 2013;310(19): 4769-3595 (http://education.[employer]/faq/QBZ556) CHOL/HDL RATIO 2.3 <5.0 (calc) [facility] TO EPIC CONVERSION NON HDL CHOLESTEROL 124 <130 [facility] TO EPIC CONVERSION Comment: Result Comment: UNITS: mg/dL (calc) For patients with diabetes plus 1 major ASCVD risk factor, treating to a non-HDL-C goal of <100 mg/dL (LDL-C of <70 mg/dL) is considered a therapeutic option. Test Performed at: [facility] [address] [place] [address] AVINASH MELVIN DO,MPH 04/11/2017 11:1 1 AM CDT 04/11/2017 11:11 AM CDT Narrative [facility] TO EPIC CONVERSION - 04/11/2017 11:13 AM CDT Result Communication: No patient communication needed at this time Chapo Webber MD LABORATORY Final Result [facility] TO EPIC CONVERSION from Last 3 Months or Most Recently Relevant to Health Maintenance Insurance [place] [place] [address] [place] [id number] [facility] [employer] Care Teams Combat Systems Engineer Relationship Specialty Start Date End Date Jovani Garcia DO [address] [place] [id number] PCP - General FAMILY PRACTICE 06/08/18
--- OUTSIDE RECORDS SUMMARY | 2024-09-17 11:06 | XMS_ITS | Encounter Summary ---
Author Organization [facility] Address [address] [place] [address] Phone Care Team Providers Care Protective Signal Operations Supervisor Name Role Phone Marcellus Damon MD Primary Care Provider [phone] Dmitriy Pak DO Unavailable [phone] Reason for Visit * Reason Comments Medication Refill Encounter Details Date Type Department Care Team (Late st Contact Info) Description 10/03/2019 Refill [facility] - Gastroenterology [facility] [address] [place] [address] Dmitriy Pak, DO [address] [address] Medication Refill Social History Tobacco Use Types Packs/Day Years Used Date Smoking Tobacco: Never Smokeless Tobacco: Never Alcohol Use Standard Drinks/Week Comments No 0 (1 standard drink = 0.6 oz pur e alcohol) Comments Unknown Sex and Gender Information Value Date Recorded Sex Assigned at Not on file Legal Sex Female 5:38 PM CDT Gender Identity Not on file Sexual Orientation Not on file documented as of this encounter Miscellaneous Notes * Telephone Encounter - Sherlyn Comer CMA - 10/04/2019 7:52 AM CDT Pharmacy requesting refill of: Requested Prescriptions Pending Prescriptions Disp Refills ??? omeprazole (PRILOSEC) 40 MG CAPSULE DELAYED RELEASE [Pharmacy Med Name: OMEPRAZOLE 40MG CAPSULES] 30 Cap Sig: TAKE 1 CAPSULE BY MOUTH EVERY MORNING Last fill: 10/03/2019 Patients last OV with GI: 04/16/19 Next Office Visit with GI: None scheduled documented in this encounter Plan of Treatment Not on file documented as of this encounter Visit Diagnoses Not on filedocumented in this encounter Care Teams Protective Signal Operations Supervisor Relationship Specialty Start Date End Date Marcellus Damon MD [address] [place] [id number] PCP - General Family Medicine 04/05/16 Dmitriy Pak DO [address] [place] [id number] Gastroenterology 04/05/16 documented as of this encounter
--- OUTSIDE RECORDS SUMMARY | 2024-09-17 11:06 | XMS_ITS | Clinical Summary ---
Author Organization [facility] Address [address] [place] [address] Care Team Providers Care Lead Shop Operator Name Role Phone Jordana Randle MD Primary Care Provider [phone] Source Comments [facility],non-owned Affiliates and Associated Physician Practices is amultiple site organization consisting of ambulatory clinics and hospital sitesin [place], [place], [place] and [place]. This disclosure is being madepursuant to the Care Everywhere program and may not contain all information available regarding this patient. Last updated 18.[facility] [employer] Allergies Active Allergy Reactions Criticality Noted Date Comments Adhesive Sensitivity Urticaria Medium 04/09/2016 Alendronic Acid GI Discomfort,Nausea and/or Vomiting High 09/01/2019 Amitriptyline Dizziness,Vomiting Medium 05/10/2014 Codeine Nausea and/or Vomiting Low 01/24/2016 Duloxetine Rash Medium 06/17/2018 Dust Mite Extract Rhinitis Low 02/03/2020 Erythromycin Itching 10/07/2022 Hydrocodone-Acetaminophen Dizziness Low 02/03/2020 Ibuprofen Dizziness Low 02/03/2020 Morphine Dizziness,Vomiting Medium 04/16/2019 Nortriptyline GI Discomfort Medium 07/08/2017 Sulfa Drugs Nausea and/or Vomiti ng,GI Discomfort Medium 05/09/2011 Medications * Be aware that medications may not be up to date on this document. Alwaysverify current medications with the patient. Medication Sig Dispensed Refills Start Date End Date Status amLODIPine (NORVASC) 5 MG tablet Take 1 (one) tablet by mouth once daily Active zolpidem (AMBIEN) 10 MG tablet Take 1 (one) tablet by mouth once 07/22/2018 Active lidocaine viscous (XYLOCAINE) 2 % viscous solution Take 100 mL by mouth as directed 03/09/2021 Active diclofenac sodium (VOLTAREN) 1 % gel Apply 100 (one hundred) g to affected area as directed 03/03/2021 Active FEROSUL 325 (65 Fe) MG tablet Take 1 (one) tablet by mouth daily with breakfast 04/25/2021 Active famotidine (PEPCID) 40 MG tablet Take 1 (one) tablet by mouth once daily 06/18/2021 Active PROLIA 60 MG/ML SC injection Inject 1 mL subcutaneously as directed 06/08/2021 Active clonazePAM (KlonoPIN) 0.5 MG tablet Take 1 (one) tablet by mouth once daily 04/02/2022 Active docusate sodium (Colace) 100 MG capsule Take 1 (one) capsule by mouth 2 times daily as needed 07/10/2022 Active diclofenac sodium EC (Voltaren) 50 MG tablet Take 1 (one) tablet by mouth 2 times daily 07/05/2022 Active acyclovir (Zovirax) 200 MG capsule Take 1 (one) capsule by mouth as directed 06/03/2022 Active traMADol (Ultram) 50 MG tablet Take 1 (one) tablet by mouth every 6 hours as needed for Pain 12 tablet 09/30/2022 Active gabapentin (Neurontin) 300 MG capsule Take 1 (one) capsule by mouth 3 times daily Active pantoprazole EC (Protonix) 40 MG tablet Take 1 (one) tablet by mouth every morning 03/10/2024 Active amLODIPine (Norvasc) 2.5 MG tablet Take 1 (one) tablet by mouth once daily 06/07/2024 Active clotrimazole-beta methasone (Lotrisone) 1-0.05 % creamIndications: Debris in ear canal,Keratosis obturans of external ear canal, right Small amount at external RIGHT ear nightly and LEFT ear weekly 15 g 1 06/08/2024 Active Additional Information Patient not taking.Reported on 09/02/2024 cevimeline (Evoxac) 30 MG capsule Take 1 (one) capsule by mouth 3 times daily 90 capsule 2 09/02/2024 Active fluconazole (Diflucan) 100 MG tablet Take two tablets by mouth on the first day and one tablet by mouth everyday thereafter until complete. 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 Rash and nonspecific skin eruption 04/29/2012 Encounters Date Type Department Care Team Description 09/02/2024 1:15 PM INFORMATICS ANALYST Office Visit [facility] - ENT [address] [place] [phone] Ming Kaba DMD Burning mouth syndrome (Primary Dx); Dry mouth 09/02/2024 Travel 08/11/2024 Travel 08/06/2024 Telephone [facility] - Centralized Scheduling [address] [place] [phone] Mehrdad Archibald MD Reschedule Appointment 08/06/2024 Travel from Last 3 Months Immunizations Name Administration Dates Next Due FLU VACCINE TRI IIV3 SPLIT P F IM (FLUVIRIN) 06/08/2018 INFLUENZA VACCINE 04/04/2021,,04/29/2019,2017,04/08/2017,04/08/2017 INFLUENZA VACCINE, ADJUVANTE D, QUADR. (FLUAD QUADRIVALENT; 65Y+) (AIIV4) 05/28/2023 INFLUENZA VACCINE, HIGH-DOSE , QUADR. (FLUZONE HIGH-DOSE QUADRIVALENT; 65Y+), 0.7 ML (HD-IIV4) 04/02/2022,04/18/2020,04/29/2019 INFLUENZA VACCINE, HIGH-DOSE , TRIV. (FLUZONE HIGH-DOSE TRIVALENT; 65Y+) (HD-IIV3) 04/29/2019,04/08/2017 PNEUMOCOCCAL PCV20 CONJ VAC IM 06/06/2022 Social History Tobacco Use Types Packs/Day Years Used Date Smoking Tobacco: Never Smokeless Tobacco: Never Tobacco Cessation:Counseling Given: Not Answered Alcohol Use Standard Drinks/Week Comments No 0 (1 standard drink = 0.6 oz pur e alcohol) Sex and Gender Information Value Date Recorded Sex Assigned at Female 06/03/2023 10:16 PM INFORMATICS ANALYST Gender Identity Female 06/03/2023 10:16 PM INFORMATICS ANALYST Sexual Orientation Not on file Last Filed Vital Signs Vital Sign Reading Time Taken Comments Blood Pressure 123/75 09/02/2024 1:18 PM INFORMATICS ANALYST Pulse 86 09/02/2024 1:18 PM INFORMATICS ANALYST Temperature 36.4 C (97.5 F) 09/30/2022 8:40 AM CDT Respiratory Rate 14 09/30/2022 8:55 AM CDT Oxygen Saturation 95% 05/13/2023 11:38 AM INFORMATICS ANALYST Inhaled Oxygen Concentration - - Weight 43.1 kg (95 lb) 09/02/2024 1:18 PM INFORMATICS ANALYST Height 162.6 cm (5' 4 ) 09/02/2024 1:18 PM INFORMATICS ANALYST Body Mass Index 16.31 09/02/2024 1:18 PM INFORMATICS ANALYST Plan of Treatment Upcoming Encounters Date Type Department Care Team (Late st Contact Info) Description 09/21/2024 2:30 PM CDT Office Visit [facility] - ENT [address] [place] [phone] Mehrdad Archibald MD [address] [place] [address] [address] [place] [address] 12/02/2024 10:15 AM CDT Office Visit [facility] - ENT [address] [place] [phone] Ming Kaba DMD [address] [place] [address] [address] [place] [address] Health Maintenance Due Date Last Done Comments BONE DENSITY TESTING 1945 MEDICARE AWV 12 MONTHS 1945 DTAP/TDAP/TD VACCINES (1 - Tdap) 1966 ZOSTER VACCINE (1 of 2) 1997 Respiratory Syncytial Virus (RSV) Vaccine Pt: or over 60 yrs (1 - 1-dose 75+ series) 2022 COVID-19 VACCINE ( - season) 2024 09/29/2020, 09/08/2020 INFLUENZA VACCINE (#1) 2024 3, 04/02/2022, 04/04/2021, Additional history exists DEPRESSION SCREENING 06/30/2024 HEPATITIS C SCREENING Completed 05/21/2013 PNEUMOCOCCAL VACCINE 50+ Completed 06/06/2022 HEPATITIS B VACCINE Aged Out No longe r eligible based on patient's age to complete this topic HIB VACCINE Aged Out No longer eligi ble based on patient's age to complete this topic HPV VACCINE Aged Out No longer eligi ble based on patient's age to complete this topic MENINGOCOCCAL (Group B) VACCINE SHARED DECISION-MAKING Aged Out No longer eligible based on patient's age to complete this topic MENINGOCOCCAL GROUPS A/C/Y/W VACCINE Aged Out No longer eligible based on patient's age to complete this topic Procedures Procedure Name Priority Date/Time Associated Diagnosis Comments HEPATITIS SCREEN ACUTE Routine 05/21/2013 3:57 PM INFORMATICS ANALYST from Last 3 Months or Most Recently Relevant to Health Maintenance Results * HEPATITIS SCREEN ACUTE (05/21/2013 3:57 PM INFORMATICS ANALYST) Hepatitis A Virus Antibody IgM NON-REACTI VE NON-REACT [facility]) Comment: Test Performed at: [facility] [address] [id number] [place] [address] AVINASH MELVIN DO,MPH Hepatitis B Virus Surface Antigen NON-REACTI VE NON-REACT [facility]) Hepatitis B Core Virus Antibody IgM NON-REACTI VE NON-REACT [facility]) Hepatitis C Antibody NON-REACTI VE NON-REACT [facility]) Signal/Cutoff 0.01 <1.00 [facility]) 05/21/2013 3:57 PM INFORMATICS ANALYST 05/21/2013 3:58 PM INFORMATICS ANALYST M Jenny Drew MD LAB - CHEMISTRY ERIC FARR [facility]) from Last 3 Months or Most Recently Relevant to Health Maintenance Insurance Payer Benefit Plan / Group Subscriber ID Effective Dates Phone Address Type HUMANA HUMANA MEDICARE SUPPLEMENT [id number] 06/30/2024-Pres ent [address] [place] [address] Commercial MEDICARE WPS MEDICARE PART B [id number] 04/30/2012-Pre sent [address] [address] [place] [address] Medicare [employer] [place] [employer] [place] [facility] [id number] 08/29/2019-Pres ent [address] [employer] [place] [address] Commercial MEDICARE WPS MEDICARE PART B [id number] 04/30/2012-Pre sent [address] [address] [place] [address] Medicare [employer] [place] [employer] [place] [employer] [facility] [id number] 08/29/2019-Pres ent [address] [employer] [place] [address] Commercial MEDICARE WPS MEDICARE PART B [id number] 04/30/2012-Pre sent [address] [address] [place] [address] Medicare [employer] [employer] [place] [employer] [facility] [id number] 08/29/2019-Pres ent [address] [employer] [place] [address] Commercial MEDICARE WPS MEDICARE PART B [id number] 04/30/2012-Pre sent [address] [address] [place] [address] Medicare [employer] [employer] [place] [employer] [place] [facility] [id number] 08/29/2019-Pres ent [address] [employer] [place] [address] Commercial MEDICARE WPS MEDICARE PART B [id number] 04/30/2012-Pre sent [address] [address] [place] [address] Medicare [employer] [place] [employer] [place] [facility] [id number] 08/29/2019-Pres ent [address] [employer] [place] [address] Commercial MEDICARE WPS MEDICARE PART B [id number] 04/30/2012-Pre sent [address] [address] [place] [address] Medicare [employer] [place] [employer] [place] [employer] [place] [facility] [id number] 08/29/2019-Pres ent [address] [employer] [place] [address] Commercial MEDICARE WPS MEDICARE PART B [id number] 04/30/2012-Pre sent [address] [address] [place] [address] Medicare [employer] [place] [employer] [place] [facility] [id number] 08/29/2019-Pres ent [address] [employer] [place] [address] Commercial MEDICARE WPS MEDICARE PART B [id number] 04/30/2012-Pre sent [address] [address] [place] [address] Medicare [employer] [place] [employer] [place] [employer] [place] [facility] [id number] 08/29/2019-Pres ent [address] [employer] [place] [address] Commercial MEDICARE WPS MEDICARE PART B [id number] 04/30/2012-Pre sent [address] [address] [place] [address] Medicare [employer] [place] [employer] [place] [facility] [id number] 08/29/2019-Pres ent [address] [employer] [place] [address] Commercial MEDICARE WPS MEDICARE PART B [id number] 04/30/2012-Pre sent [address] [address] [place] [address] Medicare [employer] [place] [employer] [place] [employer] [place] [facility] [id number] 08/29/2019-Pres ent [address] [employer] [place] [address] Commercial MEDICARE WPS MEDICARE PART B [id number] 04/30/2012-Pre sent [address] [address] [place] [address] Medicare [employer] [place] [employer] [place] [facility] [id number] 08/29/2019-Pres ent [address] [employer] [place] [address] Commercial MEDICARE WPS MEDICARE PART B [id number] 04/30/2012-Pre sent [address] [address] [place] [address] Medicare [employer] [place] [employer] [place] [employer] [place] [facility] [id number] 08/29/2019-Pres ent [address] [employer] [place] [address] Commercial MEDICARE MEDICARE PART A AND B [id number] 04/30/2012-Pre sent [address] [place] [address] Medicare MEDICARE WPS MEDICARE PART B [id number] 04/30/2012-Pre sent [address] [address] [place] [address] Medicare [employer] [employer] [place] [employer] [place] [facility] [id number] 08/29/2019-Pres ent [address] [employer] [place] [address] Commercial MEDICARE WPS MEDICARE PART B [id number] 04/30/2012-Pre sent [address] [address] [place] [address] Medicare [employer] [place] [employer] [place] [facility] [id number] 08/29/2019-Pres ent [address] [employer] [place] [address] Commercial MEDICARE WPS MEDICARE PART B [id number] 04/30/2012-Pre sent [address] [address] [place] [address] Medicare [employer] [place] [employer] [place] [facility] [id number] 08/29/2019-Pres ent [address] [employer] [place] [address] Commercial MEDICARE WPS MEDICARE PART B [id number] 04/30/2012-Pre sent [address] [address] [place] [address] Medicare [employer] [place] [employer] [place] [facility] [id number] 08/29/2019-Pres ent [address] [employer] [place] [address] Commercial MEDICARE WPS MEDICARE PART B [id number] 04/30/2012-Pre sent [address] [address] [place] [address] Medicare [employer] [place] [employer] [place] [facility] [id number] 08/29/2019-Pres ent [address] [employer] [place] [address] Commercial MEDICARE WPS MEDICARE PART B [id number] 04/30/2012-Pre sent [address] [address] [place] [address] Medicare [employer] [place] [employer] [facility] [place] [facility] [id number] 08/29/2019-Pres ent [address] [employer] [place] [address] Commercial MEDICARE WPS MEDICARE PART B [id number] 04/30/2012-Pre sent [address] [address] [place] [address] Medicare [employer] [place] [employer] [facility] [place] [facility] [id number] 08/29/2019-Pres ent [address] [employer] [place] [address] Commercial MEDICARE WPS MEDICARE PART B [id number] 04/30/2012-Pre sent [address] [address] [place] [address] Medicare [employer] [place] [employer] [place] [facility] [id number] 08/29/2019-Pres ent [address] [employer] [place] [address] Commercial MEDICARE WPS MEDICARE PART B [id number] 04/30/2012-Pre sent [address] [address] [place] [address] Medicare [employer] [place] [employer] [place] [facility] [id number] 08/29/2019-Pres ent [address] [employer] [place] [address] Commercial MEDICARE WPS MEDICARE PART B [id number] 04/30/2012-Pre sent [address] [address] [place] [address] Medicare [employer] [place] [employer] [place] [facility] [id number] 08/29/2019-Pres ent [address] [employer] [place] [address] Commercial MEDICARE WPS MEDICARE PART B [id number] 04/30/2012-Pre sent [address] [address] [place] [address] Medicare [employer] [place] [employer] [place] [facility] [id number] 08/29/2019-Pres ent [address] [employer] [place] [address] Commercial MEDICARE WPS MEDICARE PART B [id number] 04/30/2012-Pre sent [address] [address] [place] [address] Medicare [employer] [place] [employer] [place] [employer] [place] [facility] [id number] 08/29/2019-Pres ent [address] [employer] [place] [address] Commercial MEDICARE WPS MEDICARE PART B [id number] 04/30/2012-Pre sent [address] [address] [place] [address] Medicare [employer] [place] [employer] [facility] [place] [facility] [id number] 08/29/2019-Pres ent [address] [employer] [place] [address] Commercial MEDICARE WPS MEDICARE PART B [id number] 04/30/2012-Pre sent [address] [address] [place] [address] Medicare [employer] [place] [employer] [facility] [place] [facility] [id number] 08/29/2019-Pres ent [address] [employer] [place] [address] Commercial MEDICARE WPS MEDICARE PART B [id number] 04/30/2012-Pre sent [address] [address] [place] [address] Medicare [employer] [place] [facility] [facility] [place] [facility] [id number] 08/29/2019-Pres ent [address] [employer] [place] [address] Commercial MEDICARE WPS MEDICARE PART B [id number] 04/30/2012-Pre sent [address] [address] [place] [address] Medicare [employer] [place] [facility] [facility] [place] [facility] [id number] 08/29/2019-Pres ent [address] [employer] [place] [address] Commercial MEDICARE WPS MEDICARE PART B [id number] 04/30/2012-Pre sent [address] [address] [place] [address] Medicare [employer] [place] [employer] [facility] [place] [facility] [id number] 08/29/2019-Pres ent [address] [employer] [place] [address] Commercial MEDICARE WPS MEDICARE PART B [id number] 04/30/2012-Pre sent [address] [address] [place] [address] Medicare [employer] [place] [employer] [facility] [place] [facility] [id number] 08/29/2019-Pres ent [address] [employer] [place] [address] Commercial MEDICARE WPS MEDICARE PART B [id number] 04/30/2012-Pre sent [address] [address] [place] [address] Medicare [employer] [place] [employer] [facility] [place] [facility] [id number] 08/29/2019-Pres ent [address] [employer] [place] [address] Commercial MEDICARE WPS MEDICARE PART B [id number] 04/30/2012-Pre sent [address] [address] [place] [address] Medicare [employer] [place] [employer] [facility] [place] [facility] [id number] 08/29/2019-Pres ent [address] [employer] [place] [address] Commercial MEDICARE WPS MEDICARE PART B [id number] 04/30/2012-Pre sent [address] [address] [place] [address] Medicare [employer] [place] [employer] [facility] [place] [facility] [id number] 08/29/2019-Pres ent [address] [employer] [place] [address] Commercial MEDICARE WPS MEDICARE PART B [id number] 04/30/2012-Pre sent [address] [address] [place] [address] Medicare [employer] [place] [facility] [facility] [place] [facility] [id number] 08/29/2019-Pres ent [address] [employer] [place] [address] Commercial MEDICARE WPS MEDICARE PART B [id number] 04/30/2012-Pre sent [address] [address] [place] [address] Medicare [employer] [place] [facility] [facility] [place] [facility] [id number] 08/29/2019-Pres ent [address] [employer] [place] [address] Commercial MEDICARE WPS MEDICARE PART B [id number] 04/30/2012-Pre sent [address] [address] [place] [address] Medicare Care Teams Lead Shop Operator Relationship Specialty Start Date End Date Jordaan Randle MD [address] [place] [phone] PCP - General Family Medicine 01/21/23
--- OUTSIDE RECORDS SUMMARY | 2024-09-17 11:06 | XMS_ITS | Encounter Summary ---
Author Organization [facility] Address 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
--- OUTSIDE RECORDS SUMMARY | 2024-09-17 11:07 | XMS_ITS | Clinical Summary ---
Author Organization [facility] Address [facility] [place] [address] Care Team Providers Care Balloon Seller Name Role Phone Jordana Randle MD Primary Care Provider + Allergies Active Allergy Reactions Criticality Noted Date Comments Adhesive Unknown 04/08/2016 Alendronate Stomach upset,Rash High 04/30/2017 Amitriptyline Dizziness Low Cat Dander Sneezing Low Duloxetine Rash Medium 06/17/2018 Duloxetine Hcl Rash Medium 06/17/2018 Erythromycin Itching Low 10/07/2022 House Dust Sneezing Low Hydrocodone-Acetaminophe n Dizziness Low Ibuprofen Dizziness Low Mite Extract Rhinitis Low 02/03/2020 Sulfa (Sulfonamide Antibiotics) Stomach upset,Nausea And Vomiting Medium 05/09/2011 Reaction: GI upset, Medications famotidine (PEPCID) 40 mg tablet take 1 tablet by oral route every day at bedtime as needed 0 0 4 Active lidocaine viscous (lidocaine) 2 % solution take 15 milliliter by oral route every 3 hours and swish and spit out 0 0 4 Active fexofenadine (ABIEL) 180 mg tablet take 1 tablet by oral route every day 0 0 4 Active zolpidem (AMBIEN) 10 mg tabletIndicatio ns:Sleep-Onset Insomnia Take 1 tablet (10 mg total) by mouth nightly as needed for sleep Active gabapentin (NEURONTIN) 300 mg capsule Take 1 capsule (300 mg total) by mouth 3 (three) times a day Active traMADol (ULTRAM) 50 mg tablet Take 1 tablet (50 mg total) by mouth every 6 (six) hours as needed for pain Active clonazePAM (KlonoPIN) 0.5 mg tablet Take 1 tablet (0.5 mg total) by mouth 3 (three) times a day Active ondansetron (ZOFRAN) 4 mg tablet Take by mouth daily as needed for nausea or vomiting Active amLODIPine (NORVASC) 5 mg tablet Take 1 tablet (5 mg total) by mouth daily Active bisacodyl EC (DULCOLAX EC) 5 mg EC tabletIndicatio ns:constipation Take 1 tablet (5 mg total) by mouth daily as needed for constipation Active polyethylene glycol (MIRALAX) 17 gram packetIndicatio ns:constipation Take 1 packet (17 g total) by mouth daily Active vitamin B complex capsule Take by mouth B2 Active baclofen (LIORESAL) 10 mg tablet Active busPIRone (BUSPAR) 10 mg tablet Active celecoxib (CeleBREX) 100 mg capsule 1 Active crisaborole (Eucrisa) 2 % ointment Active cyclobenzaprine (FLEXERIL) 5 mg tablet 1 Active diclofenac sodium (VOLTAREN) 1 % gel 1 Active Space Chamber spacer as directed 1 Active omeprazole (PriLOSEC) 40 mg capsule 0 Active traZODone (DESYREL) 100 mg tablet Active acyclovir (ZOVIRAX) 200 mg capsule 2 Active albuterol HFA (PROVENTIL HFA,VENTOLIN HFA,PROAIR HFA) 90 mcg/actuation inhaler 2 Active amoxicillin 500 mg tablet/capsule Activ e amoxicillin-cla vulanate (AUGMENTIN) 875-125 mg per tablet Active benzonatate (TESSALON) 200 mg capsule Active cephalexin (KEFLEX) 500 mg capsule Active chlorhexidine (PERIDEX) 0.12 % solution Active denosumab (Prolia) 60 mg/mL syringe Inject 1 mL (60 mg total) under the skin as directed 1 Active dexAMETHasone (DECADRON) 6 mg tablet 2 Active diazePAM (VALIUM) 10 mg tablet Active docusate sodium (COLACE) 100 mg capsule Take 1 capsule (100 mg total) by mouth 2 (two) times a day as needed 3 Active ferrous sulfate 325 mg (65 mg of elemental iron) tablet Take 1 tablet (325 mg total) by mouth [address] (PROTONIX) 40 mg EC tablet Take 1 tablet (40 mg total) by mouth every morning 2 Active montelukast (SINGULAIR) 10 mg tablet Take 1 tablet (10 mg total) by mouth nightly Active penicillin v potassium (VEETID) 500 mg tablet Active predniSONE (DELTASONE) 10 mg tablet 3 Active sucralfate (CARAFATE) 1 gram tablet 2 Active tapentadoL (Nucynta) 50 mg tablet 2 Active valACYclovir (VALTREX) 1 gram tablet Active valACYclovir (VALTREX) 500 mg tablet Active methocarbamoL (ROBAXIN) 500 mg tablet Take 1 tablet (500 mg total) by mouth 3 (three) times a day 4 Active Active Problems Problem Noted Date Diagnosed Date Osteoporosis 08/11/2023 Neck pain 02/02/2019 Dysphonia 02/02/2019 Vestibular vertigo 04/27/2015 Lumbar radiculopathy 09/03/2014 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 Shortness of breath 08/09/2014 Overview (10/03/2016): Dyspnea Essential hypertension 08/09/2014 Overview (10/03/2016): Essential hypertension Degeneration of intervertebral disc of lumbar re gion 06/16/2014 Headache 06/05/2014 Overview (10/03/2016): Headache Mass of nose 05/31/2014 Cervicalgia 05/17/2014 Pain in ear 05/13/2014 Chronic rhinitis 05/13/2014 Sensorineural hearing loss (SNHL) of both ears 1 07/13/2013 Ear ringing 05/13/2014 Herniation of intervertebral disc of cervical re gion 04/18/2014 Spinal stenosis of cervical region 02/18/2014 Chronic tension headache 02/18/2014 Herniated lumbar intervertebral disc 02/18/2014 Muscle pain 02/10/2014 Chronic pain syndrome 02/10/2014 Arthralgia of multiple joints 02/10/2014 Raynaud's disease 02/09/2014 Arthralgia of hip 02/09/2014 Abdominal pain 02/09/2014 Dizziness 02/09/2014 Cephalalgia 02/09/2014 Memory impairment 02/09/2014 Arthritis 02/09/2014 Pain of lower extremity 02/09/2014 Lumbago 02/09/2014 Lichen planus 08/06/2013 Rash 08/05/2013 Never smoked tobacco 04/29/2012 Overview (10/10/2017): Description: 08/03/12aw, 03/09/13nt Surgical History Surgery Date Site/Laterality Comments BACK SURGERY back surgery CHOLECYSTECTOMY gallbladder removed SUBLINGUAL SALIVARY CYST EXCISION Medical History Medical History Date Comments Anemia Anxiety Depression Dyslipidemia Hypertension Inflammatory bowel disease Osteoporosis Family History Medical History Relation Name Comments Lung disease Father Lung disease Mother Blood Clot Sister 1 blood clots; Hypertension Sister 2 Stroke Sister 2 Stroke; Breast cancer Sister 3 Cancer, breast ; Relation Name Status Comments Father Mother Sister 1 Sister 2 Sister 3 Social History Tobacco Use Types Packs/Day Years Used Date Smoking Tobacco: Never Smokeless Tobacco: Never Tobacco Cessation:Counseling Given: Not Answered Alcohol Use Standard Drinks/Week Comments No 0 (1 standard drink = 0.6 oz pur e alcohol) Comments Unknown Sex and Gender Information Value Date Recorded Sex Assigned at Not on file Legal Sex Female 11:31 PM CODIFIER Gender Identity Not on file Sexual Orientation Not on file Occupation Industry Job Start Date Job End Date Retired [employer] Not on file Not on file Not on abisai e Obstetrics History Last Filed Vital Signs Vital Sign Reading Time Taken Comments Blood Pressure 134/88 05/10/2024 11:40 AM CODIFIER Pulse 76 05/10/2024 11:40 AM CODIFIER Temperature 36.4 C (97.5 F) 05/10/2024 11:40 AM CODIFIER Respiratory Rate 18 05/10/2024 11:40 AM CODIFIER Oxygen Saturation 95% 05/10/2024 11:40 AM CODIFIER Inhaled Oxygen Concentration - - Weight 44 kg (97 lb) 10/24/2023 10:07 AM CDT Height 159.5 cm (5' 2.8 ) 10/24/2023 10:07 AM CD T Body Mass Index 17.3 10/24/2023 10:07 AM CDT Plan of Treatment Health Maintenance Due Date Last Done Comments Depression Screening 1945 Fall Risk Assessment 1945 Hepatitis C Screening 1945 DTaP/Tdap/Td Vaccine (1 - Tdap) 1958 Hepatitis B Screening 1965 Pneumococcal vaccine 65+ (1 of 1 - PCV) 1997 Zoster Vaccine (1 of 2) 1997 Well Visit 65+ 2012 Influenza Vaccine (#1) 2024 , 04/18/2020, 04/29/2019, Additional history exists Osteoporosis Screening-Bone Density Scan 08/18/2025 08/18/2023, 08/08/2023 Procedures Procedure Name Priority Date/Time Associated Diagnosis Comments DEXA AXIAL SKELETON BONE DENSITY 1 OR MORE SITES Schedule Routine, Read Routine (OP Routine) 08/18/2023 10:01 AM CODIFIER from Last 3 Months or Most Recently Relevant to Health Maintenance Results * Dexa Axial Skeleton Bone Density 1 or 2 Site (08/18/2023 10:01 AM CODIFIER) Anatomical Region Laterality Modality Body N/A Radiographic Gladys ging us Veronica Wilde MD IMG DXA PROCEDURES Final R esult from Last 3 Months or Most Recently Relevant to Health Maintenance Insurance MEDICARE [facility] [place] [id number] [facility] MEDICARE SUPPLEMENT INSURANCE MEDICARE [facility] Address: [address] [address] [place] [address] [facility] HEALTHCARE [facility] MEDICARE SUPPLEMENT [place] [address] [employer] [facility] MEDICARE Care Teams Balloon Seller Relationship Specialty Start Date End Date Jordana Randle MD PCP - General Family Medicine 10/24/23
--- OUTSIDE RECORDS SUMMARY | 2024-09-17 11:07 | XMS_ITS | Referral Summary ---
Author Organization [facility] Address [facility] [place] [address] Care Team Providers Care Cosmetics Supervisor Name Role Phone Jordana Randle MD Primary [...] tobacco 04/29/2012 Overview (10/10/2017): Description: 08/03/12aw, 03/09/13nt Social History Tobacco Use Types Packs/Day Years Used Date Smoking Tobacco: Never Smokeless Tobacco: Never Tobacco Cessation:Counseling Given: Not Answered Alcohol Use Standard Drinks/Week Comments No 0 (1 standard drink = 0.6 oz pur e alcohol) Comments Unknown Sex and Gender Information Value Date Recorded Sex Assigned at Not on file Legal Sex Female 11:31 PM PRODUCTION ARTIST Gender Identity Not on file Sexual Orientation Not on file Occupation Industry Job Start Date Job End Date Retired [employer] Not on file Not on file Not on abisai e Last Filed Vital Signs Vital Sign Reading Time Taken Comments Blood Pressure 134/88 05/10/2024 11:40 AM PRODUCTION ARTIST Pulse 76 05/10/2024 11:40 AM PRODUCTION ARTIST Temperature 36.4 C (97.5 F) 05/10/2024 11:40 AM PRODUCTION ARTIST Respiratory Rate 18 05/10/2024 11:40 AM PRODUCTION ARTIST Oxygen Saturation 95% 05/10/2024 11:40 AM PRODUCTION ARTIST Inhaled Oxygen Concentration - - Weight 44 kg (97 lb) 10/24/2023 10:07 AM CDT Height 159.5 cm (5' 2.8 ) 10/24/2023 10:07 AM CD T Body Mass Index 17.3 10/24/2023 10:07 AM CDT Plan of Treatment Not on file Procedures Procedure Name Priority Date/Time Associated Diagnosis Comments DEXA AXIAL SKELETON BONE DENSITY 1 OR MORE SITES Schedule Routine, Read Routine (OP Routine) 08/18/2023 10:01 AM PRODUCTION ARTIST from Last 3 Months or Most Recently Relevant to Health Maintenance Results * Dexa Axial Skeleton Bone Density 1 or 2 Site (08/18/2023 10:01 AM PRODUCTION ARTIST) Anatomical Region Laterality Modality Body N/A Radiographic Gladys ging Veronica Wilde MD IMG DXA PROCEDURES Final R esult from Last 3 Months or Most Recently Relevant to Health Maintenance Insurance MEDICARE [facility] MEDICARE SUPPLEMENT INSURANCE MEDICARE [facility] MEDICARE SUPPLEMENT INSURANCE [facility] [place] [address] MEDICARE Care Teams Cosmetics Supervisor Relationship Specialty Start Date End Date Jordana Randle MD PCP - General Family Medicine 10/24/23
== END 2024-09-17 10:03 | disposition home or self-care (01) ==
PROVIDERS: PCP Family Medicine; Visit Provider Student in an Organized Health Care Education/Training Program
DX: M54.2 Cervicalgia (principal); K13.79 Other lesions of oral mucosa
CPT/HCPCS: 70491; Q9967

== ENCOUNTER 2024-11-16 12:44 | Emergency (ER) | payer MEDICARE, SELFPAY ==
--- OUTSIDE RECORDS SUMMARY | 2024-11-16 12:47 | XMS_ITS | Clinical Summary ---
Author Organization [facility] Address [address] [place] [address] Care Team Providers Care Tail Sawyer Name Role Phone Jovani Garcia Primary Care Provider + Allergies Active Allergy Reactions Criticality Noted Date Comments Alendronate Rash Low 04/30/2017 Amitriptyline Unknown 05/10/2014 Codeine Nausea and Vomiting,Unknown Low 01/24/20 16 Duloxetine Hcl Rash Low 06/17/2018 Naproxen Unknown 05/10/2014 Sulfa Antibiotics Unknown 05/10/2014 Tape Unknown 04/08/2016 Medications gabapentin 300 MG capsule Take 300 mg by mouth. 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 Chronic pain 01/31/2016 Adrenal adenoma 09/21/2015 Osteoporosis, postmenopausal 08/10/2015 Mass of adrenal gland ([facility]) 07/17/2015 Esophageal reflux 05/30/2015 History of osteopenia 12/29/2014 PVD (peripheral vascular disease) 12/05/2014 Constipation 11/14/2014 Dyspnea 07/01/2014 Mouth dryness 06/10/2014 Carotid atherosclerosis 2014 Multinodular goiter 2014 Arthritis 05/10/2014 Chronic back pain 05/10/2014 Hypertension 05/10/2014 Insomnia 05/10/2014 Tinnitus 05/10/2014 Hearing loss, neural 03/10/2014 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 Immunizations Immunization Administration Dates Next Due Fluzone Adult - [...] Comments Blood Pressure 124/76 06/17/2018 1:35 PM BALLROOM DANCER Pulse 75 06/17/2018 1:35 PM BALLROOM DANCER Temperature 36.1 C (97 F) 06/17/2018 1:35 PM BALLROOM DANCER Respiratory Rate 16 06/17/2018 1:35 PM BALLROOM DANCER Oxygen Saturation 94% 06/17/2018 1:35 PM BALLROOM DANCER Inhaled Oxygen Concentration - - Weight 45 kg (99 lb 3 oz) 06/17/2018 1:35 PM BALLROOM DANCER Height 161.3 cm (5' 3.5 ) 06/17/2018 1:35 PM BALLROOM DANCER Body Mass Index 17.29 06/17/2018 1:35 PM BALLROOM DANCER Plan of Treatment Health Maintenance Due Date Last Done Comments ASCVD Statin 1945 Hepatitis C 1965 DTaP, Tdap and Td Vaccines ( 1 - Tdap) 1966 Pneumococcal Vaccine: 50+ Years (1 of 1 - PCV) 1997 Zoster Vaccines (1 of 2) 1997 Annual Medicare Wellness Visit 2012 Dexa Scan (General) 2012 ASCVD LDL 04/11/2018 04/11/2017, 09/27/2016 RSV Immunization or 60+ Years (1 - 1-dose 75+ series) 2022 COVID-19 Vaccine ( - 2023-2 5 season) 2024 Meningococcal B Vaccine Aged Out No l [...] LDL-C. Cody DURHAM et al. JORDAN. 2013;310(19): 5122-6433 (http://education.Spoofem.com/faq/LQR850) CHOL/HDL RATIO 2.3 <5.0 (calc) [facility] TO EPIC CONVERSION NON HDL CHOLESTEROL 124 <130 [facility] TO EPIC CONVERSION Comment: Result Comment: UNITS: mg/dL (calc) For patients with diabetes plus 1 major ASCVD risk factor, treating to a non-HDL-C goal of <100 mg/dL (LDL-C of <70 mg/dL) is considered a therapeutic option. Test Performed at: [email or web address] [id number] [place] [address] AVINASH MELVIN DO,MPH 04/11/2017 11:1 1 AM CDT 04/11/2017 11:11 AM CDT Narrative [facility] TO EPIC CONVERSION - 04/11/2017 11:13 AM CDT Result Communication: No patient communication needed at this time Chapo Webber MD LABORATORY Final Result [facility] TO EPIC CONVERSION from Last 3 Months or Most Recently Relevant to Health Maintenance Insurance MEDICARE [facility] [employer] Care Teams Tail Sawyer Relationship Specialty Start Date End Date Jovani Garcia DO [address] [place] [address] PCP - General FAMILY PRACTICE 06/08/18
--- OUTSIDE RECORDS SUMMARY | 2024-11-16 12:47 | XMS_ITS | Data Portability ---
Author Organization [facility] [employer], [facility], [facility] OFF[facility] Address [address] [place] [id number] Assessment Encounter Date Assessment Date Assessment LastModified by Organization Details LastModified Time 02/25/2017 02/25/2017 Patient is a good candidate for BMAC/fat autograft with bioburst under fluoroscopy to the lumbosacral spine. Patient would also benefit from caudal series. Patient given information regarding same. May return if she wishes to pursue. Greater than 45 minutes was spent with the patient in direct evaluation and subsequent care planning. Not available 02/25/2017 16:25:30 10/16/2021 10/16/2021 76 y/o F here for a group medical visit focusing on optimizing PRP treatment for bilateral knees. Preprocedural screening labs were reviewed and discussed with patient, and post-procedure plan was discussed in detail. CBC revealed mild anemia and recommend patient follow up with PCP for this. Vitamin D optimal at 80. Patient would benefit from attending health optimization program. She was given information regarding same. All questions answered. May follow up if she wishes to pursue health optimization. Return to clinic sooner for worsening symptoms. Greater than 20 minutes was spent with the patient in direct evaluation and subsequent care planning. Not available 10/25/2021 17:20:01 Plan of Treatment Reminders Order Date Submit Date Provider Last Modified By Organization Details Last Modified Time Details Appointments None recorded. Lab CBC w/ auto diff 2016 017 Not available 7 08:39:00 testosteron e, free + total, serum 2016 017 Not available 7 08:39:00 vitamin D, 25-hydroxy, total, serum 2016 017 Not available 7 08:39:00 Referral None recorded. Procedures None recorded. Surgeries None recorded. Imaging XR, knee - rm 6 bilteral knee 2021 022 [email or web address] Not available 2 15:16:19 XR, lumbar spine 2016 017 [email or web address] Not available 7 15:27:58 Medication Orders hydrocodone 5 mg-acetamin ophen 325 mg tablet 2016 017 [email or web address] Not available 12:34:49 Patient TargetsNo targets recorded. Patient Instructions Encounter Date Encounter Id Patient Instructions Last Modified By Organization Details Last Modified Time 02/25/2017 [id number] back care and preventing injuries: care instructions Not available 03/04/2017 16:52:58 getting back to normal after low back pain: care instructions Not available 03/04/2017 16:52:58 learning about relief for back pain Not available 03/04/2017 16:52:58 Reason for Referral None Reported. Results Created Date Observation Date Name Description Value Unit Range Abnormal Flag Note LastModifiedBy Organization Detail LastModifiedTime 10/26/19 22 10/25/2021 CARDI O IQ(R) HEMOG LOBIN A1C hemoglobin A1C 5.3 % <5.7 For the purpo se of jeremy fernandez for the prese nce of diabe dago: <5.7% is consi stent with the absen ce of diabe dago; 5.7-6 .4% is consi stent with incre ased risk for diabe dago (pred iabet es); >= 6.5% is consi stent with diabe dago. This assay resul t is consi stent with a decre ased risk of diabe dago. Curre ntly, no conse nsus exist galo michel use of hemog lobin A1c for diagn osis of diabe dago in child enedina. Accor marilu to Ameri can Diabe dago Assoc iatio n (ADA) guide lines , hemog lobin A1c <7.0% repre sents optim al contr ol in non-p regna nt diabe tic patie nts. Diffe rent metri cs may apply to speci fic patie nt popul ation s. Stand ards of Medic al Care in Diabe dago (ADA) . Not Available [employer] [facility] [address], [place], [address], 10/25/2021 21:59:22 10/26/19 22 10/25/2021 CARDI O IQ(R) HS CRP hs CRP 9.2 mg/L <1.0 high The AHA/C DC Guide lines recom mend hs-CR P range s for ident ifyin g Relat phillip Cardi ovasc ular Risk in patie nts ages >17 years : <1.0 mg/L Lower Relat phillip Cardi ovasc ular Risk; 1.0-3 .0 mg/L Printer ge Relat phillip Cardi ovasc ular Risk; 3.1-1 0.0 mg/L Highe r Relat phillip Cardi ovasc ular Risk. For patie nts with highe r cardi ovasc ular risk, consi pablo retes ting in 1-2 weeks to exclu de a benig n trans ient eleva tion secon abdias to infec tion or infla mmati on from the basel ine CRP value . Persi stent eleva tions of >10.0 mg/L upon retes ting may be assoc iated with infec tion and infla mmati on. The AHA/C DC recom menda tions are based on Gely on TA et al. Circu latio n. 2003; 107:4 99-51 1. For ages >17 Years : hs-CR P mg/L Risk Accor ding to AHA/C DC Guide lines <1.0 Lower relat phillip cardi ovasc ular risk. 1.0-3 .0 Printer ge relat phillip cardi ovasc ular risk. 3.1-1 0.0 Highe r relat phillip cardi ovasc ular risk. Consi pablo retes ting in 1 to 2 weeks to exclu de a benig n trans ient eleva tion in the basel ine CRP value secon abdias to infec tion or infla mmati on. >10.0 Persi stent eleva tion, upon retes ting, may be assoc iated with infec tion and infla mmati on. NO COLLE CTION DATE RECEI KASHIF. WE HAVE USED THE DATE THE SPECI MEN WAS RECEI KASHIF BY THIS LABOR ATORY THE COLLE CTION DATE. IF THIS IS INCOR RECT, PLEAS E CONTA CT CLIEN T SERVI ALISHA. PHONE NUMBE R: [phone] Not Available [employer] [address], [address], 10/25/2021 21:59:22 10/09/19 22 10/11/2021 CBC (INCL UDES DIFF/ PLT) white blood cell count 4.9 thous and/u L 3.8-10 .8 normal Not Available [address], [address], 10/11/2021 14:31:42 10/09/19 22 10/11/2021 CBC (INCL UDES DIFF/ PLT) red blood cell count 3.99 keily on/uL 3.80-5 .10 normal Not Available [employer] [address], [address], 10/11/2021 14:31:42 10/09/19 22 10/11/2021 CBC (INCL UDES DIFF/ PLT) hemoglobin 11.2 g/dL 11.7-1 5.5 low Not Available [employer] [address], [address], 10/11/2021 14:31:42 10/09/19 22 10/11/2021 CBC (INCL UDES DIFF/ PLT) hematocrit 34.4 % 35.0-4 5.0 low Not Available [employer] [facility] [address], [address], 10/11/2021 14:31:42 10/09/19 22 10/11/2021 CBC (INCL UDES DIFF/ PLT) MCV 86.2 fL 80.0-1 00.0 normal Not Available [address], [address], 10/11/2021 14:31:42 10/09/19 22 10/11/2021 CBC (INCL UDES DIFF/ PLT) MCH 28.1 pg 27.0-3 3.0 normal Not Available [address], [address], 10/11/2021 14:31:42 10/09/19 22 10/11/2021 CBC (INCL UDES DIFF/ PLT) MCHC 32.6 g/dL 32.0-3 6.0 normal Not Available [address], [address], 10/11/2021 14:31:42 10/09/19 22 10/11/2021 CBC (INCL UDES DIFF/ PLT) RDW 14.2 % 11.0-1 5.0 normal Not Available [address], [address], 10/11/2021 14:31:42 10/09/19 22 10/11/2021 CBC (INCL UDES DIFF/ PLT) platelet count 184 thous and/u L 140-40 0 normal Not Available [address], [address], 10/11/2021 14:31:42 10/09/19 22 10/11/2021 CBC (INCL UDES DIFF/ PLT) MPV 10.3 fL 7.5-12 .5 normal Not Available [address], [address], 10/11/2021 14:31:42 10/09/19 22 10/11/2021 CBC (INCL UDES DIFF/ PLT) absolute neutrophils 2984 cells /uL 1500-7 800 normal Not Available [address], [address], 10/11/2021 14:31:42 10/09/19 22 10/11/2021 CBC (INCL UDES DIFF/ PLT) absolute lymphocytes 1514 cells /uL 850-39 00 normal Not Available [address], [address], 10/11/2021 14:31:42 10/09/19 22 10/11/2021 CBC (INCL UDES DIFF/ PLT) absolute monocytes 333 cells /uL 200-95 0 normal Not Available [address] [place], [address], 10/11/2021 14:31:42 10/09/19 22 10/11/2021 CBC (INCL UDES DIFF/ PLT) absolute eosinophils 39 cells /uL 15-500 normal Not Available [address], [address], 10/11/2021 14:31:42 10/09/19 22 10/11/2021 CBC (INCL UDES DIFF/ PLT) absolute basophils 29 cells /uL 0-200 normal Not Available [address], [address], 10/11/2021 14:31:42 10/09/19 22 10/11/2021 CBC (INCL UDES DIFF/ PLT) neutrophils 60.9 % normal Not Available [address], [address], 10/11/2021 14:31:42 10/09/19 22 10/11/2021 CBC (INCL UDES DIFF/ PLT) lymphocytes 30.9 % normal Not Available [address], [address], 10/11/2021 14:31:42 10/09/19 22 10/11/2021 CBC (INCL UDES DIFF/ PLT) monocytes 6.8 % normal Not Available [address], [address], 10/11/2021 14:31:42 10/09/19 22 10/11/2021 CBC (INCL UDES DIFF/ PLT) eosinophils 0.8 % normal Not Available [address], [address], 10/11/2021 14:31:42 10/09/19 22 10/11/2021 CBC (INCL UDES DIFF/ PLT) basophils 0.6 % normal Not Available [address], [address], 10/11/2021 14:31:42 10/09/19 22 10/11/2021 VITAM IN D,25- OH,TO LYNSEY,I A vitamin D,25-oh,tota l,ia 80 NG/mL 30-100 normal Vitam in D Statu s 25-OH Vitam in D: Defic iency : <20 ng/mL Insuf ficie ncy: 20 - 29 ng/mL Optim al: > or = 30 ng/mL For 25-OH Vitam in D testi ng on patie nts on D2-murillo pplem entat ion and patie nts for whom quant itati on of D2 and D3 fract ions is requi red, the [employer] Assur eD(TM ) 25-OH VIT D, (D2,D 3), LC/MS /MS is recom gemma d: order code 24994 (felxi ents >2yrs ). See Note 1 Note 1 For addit ional infor ayana krishnamurthy refer to http: //[facility] doron [employer].c om/fa q/FAQ 199 (This link is being provi ded for infor terry bradshaw/ educa rj lang purpo ses only. ) Not Available [address], [address], 10/11/2021 14:31:43 10/09/19 22 10/11/2021 TESTO STERO NE, FREE (DIAL YSIS) AND TOTAL ,MS testosterone , total, MS 19 NG/dL 2-45 For addit ional infor ayana krishnamurthy e refer to https ://ed ucati on.qu mitzydi [place] [employer]. com/f aq/FA Q165 (This link is being provi ded for infor terry nal/e ducat ional purpo ses only. ) (Note ) This test was devel oped and its alexei tical perfo rmanc e [place] cteri stics have been deter mined by [employer]. It has not been clear ed or appro kashif by the FDA. This assay has been valid ated pursu ant to the CLIA regul ation s and is used for clini anabel purpo ses. Not Available [employer] [facility] [address] [place], [address], 10/11/2021 14:31:43 10/09/19 22 10/11/2021 TESTO STERO NE, FREE (DIAL YSIS) AND TOTAL ,MS testosterone , free 1.4 pg/mL 0.2-3. 7 (Note ) This test was devel oped and its alexei tical perfo rmanc e [place] cteri stics have been deter mined by [employer]. It has not been clear ed or appro kashif by the FDA. This assay has been valid ated pursu ant to the CLIA regul ation s and is used for clini anabel purpo ses. MDF med fusio n [address] [facility] [address] [place] [address] [phone] Deep holm MD Not Available [employer] [facility] [address] [place], [address], 10/11/2021 14:31:43 10/23/19 22 10/26/2021 CARDI O IQ(R) HEMOG LOBIN A1C hemoglobin A1C 5.3 % <5.7 For the purpo se of jeremy fernandez for the prese nce of diabe dago: <5.7% is consi stent with the absen ce of diabe dago; 5.7-6 .4% is consi stent with incre ased risk for diabe dago (pred iabet es); >= 6.5% is consi stent with diabe dago. This assay resul t is consi stent with a decre ased risk of diabe dago. Curre ntly, no conse nsus exist s eloisa michel use of hemog lobin A1c for diagn osis of diabe dago in child enedina. Accor ding to Ameri can Diabe dago Assoc iatio n (ADA) guide lines , hemog lobin A1c <7.0% repre sents optim al contr ol in non-p regna nt diabe tic patie nts. Diffe rent metri cs may apply to speci fic patie nt popul ation s. Stand ards of Medic al Care in Diabe dago (ADA) . Not Available [facility] [address] [place], [address], 10/26/2021 12:18:55 10/23/19 22 10/26/2021 CARDI O IQ(R) HS CRP hs CRP 9.2 mg/L <1.0 high The AHA/C DC Guide lines recom mend hs-CR P range s for ident ifyin g Relat phillip Cardi ovasc ular Risk in patie nts ages >17 years : <1.0 mg/L Lower Relat phillip Cardi ovasc ular Risk; 1.0-3 .0 mg/L Printer ge Relat phillip Cardi ovasc ular Risk; 3.1-1 0.0 mg/L Highe r Relat phillip Cardi ovasc ular Risk. For patie nts with highe r cardi ovasc ular risk, consi pablo retes ting in 1-2 weeks to exclu de a benig n trans ient eleva tion secon abdias to infec tion or infla mmati on from the basel ine CRP value . Persi stent eleva tions of >10.0 mg/L upon retes ting may be assoc iated with infec tion and infla mmati on. The AHA/C DC recom menda tions are based on Gely on TA et al. Circu latio n. 2003; 107:4 99-51 1. For ages >17 Years : hs-CR P mg/L Risk Accor ding to AHA/C DC Guide lines <1.0 Lower relat phillip cardi ovasc ular risk. 1.0-3 .0 Printer ge relat phillip cardi ovasc ular risk. 3.1-1 0.0 Highe r relat phillip cardi ovasc ular risk. Consi pablo retes ting in 1 to 2 weeks to exclu de a benig n trans ient eleva tion in the basel ine CRP value secon abdias to infec tion or infla mmati on. >10.0 Persi stent eleva tion, upon retes ting, may be assoc iated with infec tion and infla mmati on. Not Available [employer] [facility] [address] [place], [address], 10/26/2021 12:18:56 10/04/19 22 08/13/2021 MRI, knee, w/o contr ast No observ ation record ed. [email or web address] Not Available 2021 10:10:59 10/04/19 22 08/08/2021 MRI, lumba r spine , w/wo contr ast No observ ation record ed. [email or web address] Not Available 2021 10:11:00 Result Notes None recorded. Problems No Known Problems Procedures Surgical History Date Name Laterality Status Provider Name and Address Organization Details Recorded Time 10/04/19 22 Generic Procedure completed NEEL NAYLOR [address], [place], [address], [employer] 10/03/2021 13:53:36 02/26/20 17 Generic Procedure completed TRISH HUDSON PA-C [address], [place], [address], [employer] 02/25/2017 16:27:10 06/30/19 12 Other completed Farrah Roca [address], [place], [address], [employer] 02/25/2017 14:27:32 06/30/19 00 Back Surgery completed Farrah Roca [address], [place], [address], [facility], [facility] 02/25/2017 14:26:15 06/30/18 98 Cholecystectomy completed Farrah Abelino [address] [facility] [address], [place], [address], [facility], [facility] 02/25/2017 14:26:31 Imaging Results Imaging Date Name Status LastModified by Organiz ation Details LastModified Time 08/13/2021 MRI, knee, w/o contrast completed Information not available 10/04/2021 10:10:59 08/08/2021 MRI, lumbar spine, w/wo contrast completed Information not available 10/04/2021 10:11:00 Procedure Notes None recorded. Medical Equipment None Reported. Allergies No known drug allergies Medications Name Sig Start Date Stop Date Status Note LastModified by Organization Details LastModified Time amoxicillin 500 mg capsule active Not Available Not Available Not Available fluconazole 100 mg tablet TAKE 2 TABLETS BY MOUTH ON THE FIRST DAY THEN 1 TABLET DAILY FOR 2 WEEKS active Not Available Not Available No t Available clotrimazole 10 mg marcello active Not Available Not Available Not Available nystatin 100,000 unit/mL oral suspension active Not Available Not Available N ot Available Lidocaine Viscous 2 % mucosal solution APPLY 5ML IN MOUTH EVERY 6 HOURS NEEDED active Not Available Not Available No t Available benzonatate 200 mg capsule TAKE ONE CAPSULE BY MOUTH EVERY 8 HOURS NEEDED active Not Available Not Available No t Available valacyclovir 1 gram tablet active Not Available Not Available Not Available hydrocodone 5 mg-acetamino phen 325 mg tablet Take 1 tablet every 6 hours by oral route as needed for 7 days. 2021 active Not Available Not Available Not Avai lable sucralfate 1 gram tablet TAKE 1 TABLET BY MOUTH THREE TIMES DAILY BEFORE MEALS active Not Available Not Available No t Available famotidine 40 mg tablet TAKE 1 TABLET BY MOUTH EVERY DAY AT BEDTIME active Not Available Not Available No t Available alendronate 70 mg tablet TAKE 1 TABLET BY MOUTH EVERY WEEK active Not Available Not Available No t Available clonazepam 0.5 mg tablet active Not Available Not Available Not Available dexamethason e 6 mg tablet TAKE 1/2 TABLET BY MOUTH TWICE DAILY WITH MEALS FOR 7 DAYS active Not Available Not Available No t Available gabapentin 400 mg capsule active Not Available Not Available Not Available nystatin 500,000 unit tablet DISSOLVE 1 TABLET IN MOUTH THREE TIMES DAILY UNTIL GONE DIRECTED active Not Available Not Available Not Available valsartan 80 mg tablet TAKE 1 TABLET BY MOUTH ONCE DAILY active Not Available Not Available No t Available penicillin V potassium 500 mg tablet TAKE 1 TABLET BY MOUTH TWICE DAILY FOR 10 DAYS DIRECTED active Not Available Not Available No t Available amlodipine 2.5 mg tablet TAKE 1 TABLET BY MOUTH IN THE MORNING active Not Available Not Available Not Available amlodipine 5 mg tablet active Not Available Not Available No t Available valacyclovir 500 mg tablet active Not Available Not Available Not Available omeprazole 40 mg capsule,alex yed release TAKE 1 CAPSULE BY MOUTH EVERY MORNING active Not Available Not Available No t Available tramadol 50 mg tablet TAKE 1 TABLET BY MOUTH EVERY 12 HOURS NEEDED active Not Available Not Available No t Available ondansetron 8 mg disintegrati ng tablet Place 1 tablet twice a day by translingua l route as needed. 2021 active Not Available Not Available Not Avai lable famotidine 20 mg tablet active Not Available Not Available Not Available baclofen 10 mg tablet active Not Available Not Available No t Available cephalexin 500 mg capsule Take 4 capsules (total of 2g) po one hour prior to procedure. One time dose. active Not Available Not Available No t Available pantoprazole 40 mg tablet,delay ed release TAKE 1 TABLET BY MOUTH EVERY DAY IN THE MORNING active Not Available Not Available No t Available clotrimazole -betamethaso ne 1 %-0.05 % topical cream active Not Available Not Available Not Available diclofenac potassium 50 mg tablet TAKE 1 TABLET BY MOUTH THREE TIMES DAILY FOR 14 DAYS active Not Available Not Available Not Available gabapentin 300 mg capsule active Not Available Not Available Not Available omeprazole 20 mg capsule,alex yed release active Not Available Not Available Not Available diclofenac sodium 75 mg tablet,delay ed release TAKE 1 TABLET BY MOUTH EVERY 12 HOURS WITH FOOD NEEDED active Not Available Not Available No t Available acyclovir 200 mg capsule TAKE 2 CAPSULES BY MOUTH THREE TIMES DAILY FOR 7 DAYS active Not Available Not Available N ot Available diazepam 10 mg tablet Take 1 tablet as needed by oral route. active Not Available Not Available Not Available zolpidem 10 mg tablet TAKE 1 TABLET BY MOUTH AT BEDTIME NEEDED FOR SLEEP active Not Available Not Available No t Available celecoxib 100 mg capsule active Not Available Not Available Not Available ondansetron 4 mg disintegrati ng tablet DISSOLVE 1 TABLET ON THE TONGUE EVERY 6 TO 8 HOURS FOR 10 DAYS NEEDED active Not Available Not Available No t Available naproxen 500 mg tablet active Not Available Not Available No t Available amoxicillin 875 mg-potassium clavulanate 125 mg tablet TAKE 1 TABLET BY MOUTH EVERY 12 HOURS WITH MEALS FOR 7 DAYS active Not Available Not Available N ot Available cyclobenzapr ine 5 mg tablet active Not Available Not Available Not Available duloxetine 30 mg capsule,alex yed release active Not Available Not Available Not Available chlorhexidin e gluconate 0.12 % mouthwash active Not Available Not Available No t Available FeroSul 325 mg (65 mg iron) tablet TAKE 1 TABLET BY MOUTH TWICE DAILY WITH MEALS active Not Available Not Available No t Available Amitiza 8 mcg capsule active Not Available Not Available Not Available diclofenac 1 % topical gel active Not Available Not Available Not Available Nucynta 50 mg tablet Take 1 tablet every 4 hours by oral route. 2021 active Not Available Not Available Not Avai lable Vitals Date Recorded Body height Body mass index (BMI) Body weight Heart rate Systolic blood pressure Diastolic blood pressure Provider Name and Address Organization Details Last Updated DateTime 7 162.56 cm 16 kg/m2 95893.0 9 g 74 /min 124 mm[Hg] 83 mm[Hg] Farrah Roca [address] [address], [place], [address] [place] [address] [facility], [facility] 7 14:17:54 Date Recorded Body height Body mass index (BMI) Body weight Heart rate Systolic blood pressure Diastolic blood pressure Provider Name and Address Organization Details Last Updated DateTime 7 162.56 cm 16 kg/m2 78254.0 9 g 88 /min 143 mm[Hg] 92 mm[Hg] [facility], [facility] 7 14:13:35 Date Recorded Body height Body mass index (BMI) Body weight Heart rate Systolic blood pressure Diastolic blood pressure Provider Name and Address Organization Details Last Updated DateTime 2 162.56 cm 16 kg/m2 22017.0 9 g 88 /min 162 mm[Hg] 90 mm[Hg] Farrah Roca [address] [address], [place], [address], [employer] 2 13:18:35 Date Recorded Body height Body mass index (BMI) Body weight Heart rate Systolic blood pressure Diastolic blood pressure Provider Name and Address Organization Details Last Updated DateTime 2 162.56 cm 15.3 kg/m2 16289.7 2 g 74 /min 144 mm[Hg] 88 mm[Hg] Shala Stefan [employer] 2 11:23:14 Social History Question Answer Notes LastModified by Organizat ion Details LastModified Time Tobacco Smoking Status Never Smoker Farrah Roca [address], [place], [address], [employer], [employer] 02/25/2017 14:24:45 Marital Status Informatio n not available 02/25/2017 What Was The Date Of Your Most Recent Tobacco Screening? 04/22/2017 Information n ot available 01/21/2019 Sex: Unknown Functional Status Question Answer Note LastModified by Organization D etails LastModified Time What is your level of alcohol consumption? None Information not available 02/25/2017 What is your occupation? retired Information not available 02/25/2017 Mental Status None recorded. Family History Nothing Reported. Medical History Condition Response HIV or AIDS N Coronary Artery Disease N Gout N Kidney Stones N Hyperthyroidism N Head Trauma/Injury N Hernia N Hypothyroidism N Depression N COPD N Blood Clots N Lung Disease N Pacemaker N Anxiety Disorder N Arthritis N Cancer N Stroke N Neck Injury N Leg or Foot Ulcers N High Cholesterol N Liver Disease N Rheumatoid Arthritis N Headaches N Fibromyalgia N Kidney Disease N Heart Problems N Migraines N Thyroid Problems N Anemia N Multiple Sclerosis N Ulcers N Heart Attack ([place]) N Diabetes N Bleeding Disorder N Seizures/Epilepsy N Tuberculosis N Urinary Tract Infection N Back Problems N Diverticulitis N Asthma N Lupus N Peripheral Vascular Disease N Sleep Disorder N GERD/Reflux N Hepatitis N Aneurysm N Heart Disease N Pulmonary Embolism N Hypertension N Osteoporosis N Gynecological HistoryNo gynecological history recorded. Obstetrics History GPAL:G 0 P 0 0 0 0 Past Encounters Encounter ID Performer Location Encounter Start Date Encounter Closed Date Diagnosis/Indication Diagnosis SNOMED-CT Code Diagnosis ICD10 Code Diagnosis Note [id number] Bravo Beauchamp MD [facility] [address] [facility] ,[address] [place] [address] 02/25/2017 13:43:21 02/25/2017 15:27:58 Low back pain 573736236 M54.5 Malaise and fatigue 2717 95403 R53.83 Degenerati on of lumbar intervertebral disc 61397718 M51.36 Lumbar spondylosis 48535 0009 M47.896 [id number] Bravo Beauchamp MD [facility] [address] [facility] ,[address] [facility] [place] [address] 04/22/2017 12:17:13 04/22/2017 13:29:02 Low back pain [id number] M54.5 [id number] NEEL NAYLOR [facility] [address] [facility] ,[address] [facility] [place] [address] 10/03/2021 12:51:00 10/03/2021 15:16:19 Pain of knee region [id number] M25.569 Bilateral osteoarthritis of knees [id number] 82099 M17.0 At today s office visit the patient s diagnosis and treatment options were discussed in great detail. The patient was provided with informatio n to make an informativ e decision on the next steps for treatment. The patient has tried several conservati ve measures including but not limited to PT, rest, ice, and NSAIDs with no beneficial relief. Given the imaging results and the duration of the patient s symptoms I would recommend PRP with exosomes as they are an excellent candidate. We discussed the need for PRP at [facility] the 12-week candace. The risk and benefits were discussed with the patient as well as functional and pain improvemen t outcomes. The procedure was discussed in detail as well as the recovery period. We also discussed obtaining labs to ensure the patient is optimized for maximal results. I also discussed other conservati ve options. The patients case and treatment plan were reviewed in detail with Dr. Beauchamp. PLAN: PRP with exosomes to both knees All questions were answered, the patient understood the treatment plan. Greater than 45 minutes face-to-fa ce visit with more than 50% of my time spent counseling the patient about their diagnosis including pathophysi ology and treatment options. TRISH HUDSON PA-C U_MAIN OFFICE [address] [place] [phone] 10/16/2021 10:43:24 11/12/2021 12:24:14 Pain of bilateral knee regions [id number] M25.561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
--- OUTSIDE RECORDS SUMMARY | 2024-11-16 12:47 | XMS_ITS | Encounter Summary ---
Author Organization [facility] Address [address] [place] [address] Phone Care Team Providers Care Child Welfare Assistant Name Role Phone Jordana Randle MD Primary Care Provider + Encounter Details Date Type Department Care Team (Late st Contact Info) Description 11/03/2024 Results Follow-Up 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
--- OUTSIDE RECORDS SUMMARY | 2024-11-16 12:48 | XMS_ITS | Clinical Summary ---
Author Organization [facility] Address [address] [place] [address] Care Team Providers Care Legal Aide Name Role Phone Jordana Randle MD Primary Care Provider [phone] Source Comments [facility],non-owned Affiliates and Associated Physician Practices is amultiple site organization consisting of ambulatory clinics and hospital sitesin [place], [place], [place] and [place]. This disclosure is being madepursuant to the Care Everywhere program and may not contain all information available regarding this patient. Last updated 18.[facility] [email or web address] Allergies Active Allergy Reactions Criticality Noted Date [...] document. Alwaysverify current medications with the patient. amLODIPine (NORVASC) 5 MG tablet Take 1 (one) tablet by mouth once daily Active zolpidem (AMBIEN) 10 MG tablet Take 1 (one) tablet by mouth once 9 Active lidocaine viscous (XYLOCAINE) 2 % viscous solution Take 100 mL by mouth as directed 1 Active diclofenac sodium (VOLTAREN) 1 % gel Apply 100 (one hundred) g to affected area as directed 1 Active FEROSUL 325 (65 Fe) MG tablet Take 1 (one) tablet by mouth daily with breakfast 1 Active famotidine (PEPCID) 40 MG tablet Take 1 (one) tablet by mouth once daily 1 Active PROLIA 60 MG/ML SC injection Inject 1 mL subcutaneously as directed 1 Active clonazePAM (KlonoPIN) 0.5 MG tablet Take 1 (one) tablet by mouth once daily 2 Active docusate sodium (Colace) 100 MG capsule Take 1 (one) capsule by mouth 2 times daily as needed 3 Active diclofenac sodium EC (Voltaren) 50 MG tablet Take 1 (one) tablet by mouth 2 times daily 3 Active acyclovir (Zovirax) 200 MG capsule Take 1 (one) capsule by mouth as directed 2 Active traMADol (Ultram) 50 MG tablet Take 1 (one) tablet by mouth every 6 hours as needed for Pain 12 tablet 3 Active gabapentin (Neurontin) 300 MG capsule Take 1 (one) capsule by mouth 3 times daily Active pantoprazole EC (Protonix) 40 MG tablet Take 1 (one) tablet by mouth every morning 4 Active amLODIPine (Norvasc) 2.5 MG tablet Take 1 (one) tablet by mouth once daily 4 Active clotrimazole-b etamethasone (Lotrisone) 1-0.05 % creamIndicatio ns:Debris in ear canal,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 Rash and nonspecific skin eruption 04/29/2012 Encounters Date Type Department Care Team Description 11/11/2024 Travel 11/11/2024 Telephone [facility] - Centralized Scheduling [address] [place] [address] Mehrdad Archibald MD Reschedule Appointment 09/21/2024 2:30 PM CDT Office Visit [facility] - [facility] [address] [place] [phone] Mehrdad Archibald MD Keratosis obturans of external ear canal, right (Primary Dx) 09/21/2024 Travel 09/02/2024 1:15 PM NEWBORN PHOTOGRAPHER Office Visit [facility] - [facility] [address] [place] [phone] Ming Kaba, DMD Burning mouth syndrome (Primary Dx); Dry mouth 09/02/2024 Travel from Last 3 Months Immunizations Immunization Administration Dates Next Due FLU VACCINE TRI [...] Sex Assigned at Female 06/03/2023 10:16 PM NEWBORN PHOTOGRAPHER Legal Sex Female 6:23 AM NEWBORN PHOTOGRAPHER Gender Identity Female 06/03/2023 10:16 PM NEWBORN PHOTOGRAPHER Sexual Orientation Not on file Last Filed Vital Signs Vital Sign Reading Time Taken Comments Blood Pressure 154/94 09/21/2024 2:50 PM CDT Pulse 88 09/21/2024 2:50 PM CDT Temperature 36.4 C (97.5 F) 09/30/2022 8:40 AM CDT Respiratory Rate 14 09/30/2022 8:55 AM CDT Oxygen Saturation 95% 05/13/2023 11:38 AM NEWBORN PHOTOGRAPHER Inhaled Oxygen Concentration - - Weight 43.7 kg (96 lb 6.4 oz) 09/21/2024 2:50 PM CDT Height 162.6 cm (5' 4 ) 09/21/2024 2:50 PM CDT Body Mass Index 16.55 09/21/2024 2:50 PM CDT Plan of Treatment Upcoming Encounters Date Type Department Care Team (Late st Contact Info) Description 12/28/2024 10:45 AM CDT Office Visit [facility] [address] [place] [phone] Mehrdad Archibald MD [address] [place] [address] [place] [address] Health Maintenance Due Date Last Done Comments BONE DENSITY TESTING 1945 MEDICARE AWV 12 MONTHS 1945 DTAP/TDAP/TD VACCINES (1 - Tdap) 1966 ZOSTER VACCINE (1 of 2) 1997 Respiratory Syncytial Virus (RSV) Vaccine Pt: or over 60 yrs (1 - 1-dose 75+ series) 2022 COVID-19 VACCINE ( - season) 2024 09/29/2020, 09/08/2020 DEPRESSION SCREENING 06/30/2024 INFLUENZA VACCINE (Season Ended) 2025 05/28/2023, 04/02/2022, 04/04/2021, Additional history exists HEPATITIS C SCREENING Completed 05/21/2013 PNEUMOCOCCAL VACCINE [...] Procedure Name Priority Date/Time Associated Diagnosis Comments AK REMOVE CERUMEN IMPACTED W INSTR RT EAR Routine 09/21/2024 4:08 PM CDT Keratosis obturans of external ear canal, right HEPATITIS SCREEN ACUTE Routine 05/21/2013 3:57 PM NEWBORN PHOTOGRAPHER from Last 3 Months or Most Recently Relevant to Health Maintenance Results * AK REMOVE CERUMEN IMPACTED W INSTR RT EAR (09/21/2024 4:08 PM CDT) Narrative Mehrdad Archibald MD - 09/21/2024 4:08 PM CDT Mehrdad Archibald MD 09/21/2024 4:09 PM Indication: Excessive Cerumen Impaction Procedure: Micro-otoscopy - AK REMOVE CERUMEN IMPACTED W INSTR: [[id number] RT] Procedure Note: Verbal consent for the procedure was obtained. Patient was placed under the ear microscope and bilateral ear(s) examined. All cerumen and excess hair was removed using a combination of cerumen loops, suction,and alligator forceps. Normal Findings: After the cerumen was removed, the ear canal was normal and the tympanic membrane on the left had normal landmarks and mobility. The right had normal landmarks and mobility. Abnormalities: Epithelial debris over exposed bone in the ear canal this was meticulously debrided with mild discomfort. Very superficial thin layer of epithelium on the surface of the TM worse in the anterior inferior part of the TM. Middle ear space aerated. Mehrdad Archibald MD Mehrdad Archibald MD PROCEDURE/MINOR SURGICAL ORD ERABLES Final Result * HEPATITIS SCREEN ACUTE (05/21/2013 3:57 PM NEWBORN PHOTOGRAPHER) Hepatitis A Virus Antibody IgM NON-REACTI VE NON-REACT [facility] ([facility]) Comment: Test Performed at: [facility] [address] [place] [address] AVINASH MELVIN DO,MPH Hepatitis B Virus Surface Antigen NON-REACTI VE NON-REACT [facility] ([facility]) Hepatitis B Core Virus Antibody IgM NON-REACTI VE NON-REACT [facility] ([facility]) Hepatitis C Antibody NON-REACTI VE NON-REACT [facility] ([facility]) Signal/Cutoff 0.01 <1.00 [facility]) 05/21/2013 3:57 PM NEWBORN PHOTOGRAPHER 05/21/2013 3:58 PM NEWBORN PHOTOGRAPHER [facility] Jenny Drew MD LAB - CHEMISTRY ORDERABLES nal Result [facility] ([facility]) [id number] from Last 3 Months or Most Recently Relevant to Health Maintenance [place] [address] [address] [facility] [place] [address] MEDICARE MEDICARE [facility] MEDICARE [employer] [place] [address] MEDICARE [employer] [place] [address] MEDICARE [employer] [place] MEDICARE [employer] [place] [address] MEDICARE [employer] [place] [address] MEDICARE [employer] [place] [address] MED[place]ARE [employer] [place] [address] MED[place]ARE [employer] [place] MEDICARE [place] [employer] [place] [address] MEDICARE [employer] [place] [address] MEDICARE [employer] [place] [address] MED[place]ARE [employer] [place] [address] MEDICARE [employer] [place] MEDICARE [place] [employer] [place] [address] MEDICARE [employer] [place] [address] MEDICARE [employer] [place] [address] MED[place]ARE [employer] [place] [address] MEDICARE [employer] [place] MEDICARE [place] [employer] [place] [address] MEDICARE [employer] [place] [address] MEDICARE [employer] [place] [address] MED[place]ARE [employer] [place] [address] MEDICARE [employer] [place] MEDICARE [place] [employer] [place] [address] MEDICARE [employer] [place] [address] MEDICARE [employer] [place] [address] MED[place]ARE [employer] [place] [address] MEDICARE [employer] [place] MEDICARE [place] [employer] [place] [address] MEDICARE [employer] [place] [address] MEDICARE [employer] [place] [address] MED[place]ARE [employer] [place] [address] MEDICARE [employer] MEDICARE [facility] Care Teams Legal Aide Relationship Specialty Start Date End Date Jordana Randle MD [address] [place] [address] PCP - General Family Medicine 01/21/23
--- OUTSIDE RECORDS SUMMARY | 2024-11-16 12:48 | XMS_ITS | Referral Summary ---
Author Organization [facility] Address [address] [place] [phone] Care Team Providers Care [employer] Resource Teacher Name Role Phone Jordana Randle MD Primary Care Provider + Encounters Date Type Department Care Team Description 11/08/2024 11:24 AM CDT - 11/08/2024 11:59 PM CDT Hospital Encounter [facility] [address] [place] [address] Osteoporosis, unspecified osteoporosis type, unspecified pathological fracture presence (Primary Dx) Discharge Disposition: Discharge to home or self care 11/03/2024 Results Follow-Up [facility] [address] [facility] [address] [place] [address] Veronica Wilde MD Comprehensive metabolic panel, Phosphorus, Vitamin D 25 hydroxy, eGFR 11/03/[address] [facility] [address] [facility] [address] [place] [phone] Veronica Wilde MD 11/03/2024 11:45 AM CDT Lab [facility] [address] [place] [address] [address] [place] [address] Other osteoporosis without current pathological fracture; At high risk for falls 11/03/2024 10:30 AM CDT Clinical Support [facility] [address] [facility] [address] [place] [address] Other osteoporosis without current pathological fracture (Primary Dx); Osteoporosis, unspecified osteoporosis type, unspecified pathological fracture presence 11/03/2024 11:00 AM CDT Office Visit [facility] [address] [facility] [address] [place] [address] Veronica Wilde MD Other osteoporosis without current pathological fracture (Primary Dx); At high risk for falls from Last 3 Months Allergies Active Allergy Reactions Criticality Noted Date [...] 0 4 Active zolpidem (AMBIEN) 10 mg tabletIndicati ons:Sleep-Onse t Insomnia Take 1 tablet (10 mg total) by mouth nightly as needed for sleep Active gabapentin (NEURONTIN) 300 mg capsule Take 1 capsule (300 mg total) by mouth 3 (three) times a day Active traMADol (ULTRAM) 50 mg tablet Take 1 tablet (50 mg total) by mouth every 6 (six) hours as needed for pain Active amLODIPine (NORVASC) 5 mg tablet Take 1 tablet (5 mg total) by mouth daily Active bisacodyl EC (DULCOLAX EC) 5 mg EC tabletIndicati ons:constipati on Take 1 tablet (5 mg total) by mouth daily as needed for constipation Active diclofenac sodium (VOLTAREN) 1 % gel 1 Active traZODone (DESYREL) 100 mg tablet Active denosumab (Prolia) 60 mg/mL syringe Inject 1 mL (60 mg total) under the skin as directed 1 Active docusate sodium (COLACE) 100 mg capsule Take 1 capsule (100 mg total) by mouth 2 (two) times a day as needed [address] (PROTONIX) 40 mg EC tablet Take 1 tablet (40 mg total) by mouth every morning 2 Active clonazePAM (KlonoPIN) 0.5 mg tablet Take 1 tablet (0.5 mg total) by mouth 3 (three) times a day 025 Discontin ued(Other ) ondansetron (ZOFRAN) 4 mg tablet Take by mouth daily as needed for nausea or vomiting 025 Discontin ued(Other ) polyethylene glycol (MIRALAX) 17 gram packetIndicati ons:constipati on Take 1 packet (17 g total) by mouth daily 025 Discontin ued(Other ) vitamin B complex capsule Take by mouth B2 025 Discontin ued(Other ) baclofen (LIORESAL) 10 mg tablet 025 Discontin ued(Other ) busPIRone (BUSPAR) 10 mg tablet 025 Discontin ued(Other ) celecoxib (CeleBREX) 100 mg capsule 1 025 Discontin ued(Other ) crisaborole (Eucrisa) 2 % ointment 025 Discontin ued(Other ) cyclobenzaprin e (FLEXERIL) 5 mg tablet 1 025 Discontin ued(Other ) Space Chamber spacer as directed 1 025 Discontin ued(Other ) omeprazole (PriLOSEC) 40 mg capsule 0 025 Discontin ued(Other ) acyclovir (ZOVIRAX) 200 mg capsule 2 025 Discontin ued(Other ) albuterol HFA (PROVENTIL HFA,VENTOLIN HFA,PROAIR HFA) 90 mcg/actuation inhaler 2 025 Discontin ued(Other ) amoxicillin 500 mg tablet/capsule 025 Discontin ued(Other ) amoxicillin-cl avulanate (AUGMENTIN) 875-125 mg per tablet 025 Discontin ued(Other ) benzonatate (TESSALON) 200 mg capsule 025 Discontin ued(Other ) cephalexin (KEFLEX) 500 mg capsule 025 Discontin ued(Other ) chlorhexidine (PERIDEX) 0.12 % solution 025 Discontin ued(Other ) dexAMETHasone (DECADRON) 6 mg tablet 2 025 Discontin ued(Other ) diazePAM (VALIUM) 10 mg tablet 025 Discontin ued(Other ) ferrous sulfate 325 mg (65 mg of elemental iron) tablet Take 1 tablet (325 mg total) by mouth 1 025 Discontin ued(Other ) montelukast (SINGULAIR) 10 mg tablet Take 1 tablet (10 mg total) by mouth nightly 025 Discontin ued(Other ) penicillin v potassium (VEETID) 500 mg tablet 025 Discontin ued(Other ) predniSONE (DELTASONE) 10 mg tablet 3 025 Discontin ued(Other ) sucralfate (CARAFATE) 1 gram tablet 2 025 Discontin ued(Other ) tapentadoL (Nucynta) 50 mg tablet 2 025 Discontin ued(Other ) valACYclovir (VALTREX) 1 gram tablet 025 Discontin ued(Other ) valACYclovir (VALTREX) 500 mg tablet 025 Discontin ued(Other ) methocarbamoL (ROBAXIN) 500 mg tablet Take 1 tablet (500 mg total) by mouth 3 (three) times a day 4 025 Discontin ued(Other ) Active Problems Problem Noted Date Diagnosed Date [...] on file Legal Sex 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 Gender Identity Not on file Sexual Orientation Not on file Occupation Industry Job Start Date Job End Date Retired [employer] Not on file Not on file Not on abisai e Last Filed Vital Signs Vital Sign Reading Time Taken Comments Blood Pressure 138/86 11/08/2024 11:35 AM CDT Pulse 85 11/08/2024 11:25 AM CDT Temperature 36.7 C (98.1 F) 11/08/2024 11:25 AM CDT Respiratory Rate 18 11/08/2024 11:25 AM CDT Oxygen Saturation 96% 11/08/2024 11:25 AM CDT Inhaled Oxygen Concentration - - Weight 42.6 kg (94 lb) 11/03/2024 10:56 AM CDT Height 158.8 cm (5' 2.5 ) 11/03/2024 10:56 AM CD T Body Mass Index 16.92 11/03/2024 10:56 AM CDT Plan of Treatment Not on file Procedures Procedure Name Priority Date/Time Associated Diagnosis Comments EGFR Routine 11/03/2024 11:50 AM CDT Other osteoporosis without current pathological fracture At high risk for falls VITAMIN D 25 HYDROXY Routine 11/03/2024 11:50 AM CDT Other osteoporosis without current pathological fracture At high risk for falls PHOSPHORUS Routine 11/03/2024 11:50 AM CDT Other osteoporosis without current pathological fracture At high risk for falls COMPREHENSIVE METABOLIC PANEL Routine 11/03/2024 11:50 AM CDT Other osteoporosis without current pathological fracture At high risk for falls DEXA TBS AXIAL SKELETON BONE DENSITY 1 OR MORE SITES Schedule Routine, Read Routine (OP Routine) 11/03/2024 10:35 AM CDT Osteoporosis, unspecified osteoporosis type, unspecified pathological fracture presence from Last 3 Months Results * eGFR (11/03/2024 11:50 AM CDT) eGFR 77 >=60 mL/min/1. 73 m2 Comment: Interpretive Data Reference Interval Normal >/= 90 mL/min/1.73m2 Mildly decreased* 60 - 89 mL/min/1.73m2 Mildly to moderately decreased 45 - 59 mL/min/1.73m2 Moderately to severely decreased 30 - 44 mL/min/1.73m2 Severely decreased 15 - 29 mL/min/1.73m2 Kidney Failure < 15 mL/min/1.73m2 *Relative to young adult level Estimated glomerular filtration rate is determined by the 2020 CKD-EPI equation recommended by the National Kidney Foundation (A Unifying Approach to GFR Estimation: Recommendations of the NKF-ASK Task Force on Reassessing the Inclusion of Race in Diagnosing Kidney Disease, JASN 2020). The CKD-EPI equation should not be used for patients with unstable renal function and has not been validated in children and those over 70. Current interpretive data was last reviewed 2021. Blood 11/03/2024 11:5 0 AM CDT 11/03/2024 1:53 PM CDT Veronica Wilde MD LAB BLOOD ORDERABLES Final Result Performing Organization Address City/[facility] Co de Phone Number [facility] [place] [address] * Vitamin D 25 hydroxy (11/03/2024 11:50 AM CDT) Vitamin D 25-OH 59 30 - 80 ng/mL Blood 11/03/2024 11:5 0 AM CDT 11/03/2024 1:50 PM CDT Veronica Wilde MD LAB BLOOD ORDERABLES Final Result Performing Organization Address [facility] de Phone Number [facility] [place] [address] * Phosphorus (11/03/2024 11:50 AM CDT) Pathologist [facility] Phosphorus, pl 3.0 2.3 - 4.5 mg/dL Blood 11/03/2024 11:5 0 AM CDT 11/03/2024 1:50 PM CDT Veronica Wilde MD LAB BLOOD ORDERABLES Final Result Performing Organization Address [facility] Co de Phone Number [facility] [place] [address] * (ABNORMAL) Comprehensive metabolic panel (11/03/2024 11:50 AM CDT) Sodium 141 135 - 145 mmol/L Potassium, pl 4.0 3.3 - 4.9 mmol/L [facility] Chloride 102 97 - 110 mmol/L [facility] CO2 33(H) 22 - 32 mmol/L [facility] Anion gap 6 2 - 15 mmol/L [facility] BUN 9 6 - 25 mg/dL [facility] Creatinine 0.79 0.60 - 1.10 mg/dL [facility] Glucose 105 70 - 199 mg/dL [facility] Comment: Interpretive Data Fasting glucose >/= 126 mg/dl is diagnostic for diabetes. Fasting is defined as no caloric intake for at least 8 hours. Fasting glucose between 100 mg/dl to 125 mg/dl is diagnostic of prediabetes. In a patient with classic symptoms of hyperglycemia or hyperglycemic crisis, a random glucose >/= 200 mg/dl is diagnostic for diabetes. In the absence of unequivocal hyperglycemia, results should be confirmed by repeat testing. The classification and Diagnosis of Diabetes Diabetes Care 2021; 46: S19-S40. Current interpretive data was last revised 2022. Calcium 10.0 8.5 - 10.3 mg/dL [facility] Bilirubin, total 0.4 0.1 - 1.2 mg/dL [facility] Protein, pl 7.6 6.5 - 8.5 g/dL [facility] Albumin 5.0 3.5 - 5.0 g/dL [facility] Alk phos 42 40 - 130 Units/L [facility] ALT 17 7 - 45 Units/L [facility] AST 30 10 - 45 Units/L [facility] Blood 11/03/2024 11:5 0 AM CDT 11/03/2024 1:50 PM CDT us Veronica Wilde MD LAB BLOOD ORDERABLES Final Result [facility] Department [place] [address] * Dexa TBS Axial Skeleton Bone Density 1 or more sites (11/03/2024 10:35 AM CDT) Anatomical Region Laterality Modality Wrist, Body N/A Radiographic Gladys ging Narrative 11/03/2024 11:34 AM CDT Patient Name: Barbie Chaudhary Date of : 1945 Date of scan: 11/03/2024 Bone mineral density was performed on a [employer] Discovery Densitometer. Based on machine cross-calibration and precision studies the least significant changes of this densitometer is 0.024 g/cm2 at the spine, 0.020 g/cm2 at the total proximal femur, and 0.014g/cm2 at the forearm. HISTORY: This is a 79 y.o. postmenopausal female with a history of osteoporosis and vitamin D deficiency. She reports that she has never smoked. She has never used smokeless tobacco. Currently on treatment with calcium, vitamin D, and denosumab (Prolia), previously treated with alendronate (Fosamax), zoledronic acid (Reclast), and glucocorticoids, and current complaint of arm pain, back pain, neck pain, and leg pain. INDICATIONS: Menopause status, treatment monitoring, vitamin D deficiency, and history of osteoporosis. FINDINGS: BONE MINERAL DENSITY OF THE LUMBAR SPINE Bone Mineral Density (BMD) of the lumbar spine was measured from L1-L3 and the average density was calculated to be 1.018 gm/cm2. This corresponds to a T-score (standard deviations from the mean of young adults) of 0.0. When compared to the previous study of 08/08/2023 there has been no significant changes in bone density. BONE MINERAL DENSITY OF THE PROXIMAL FEMUR Bone Mineral Density (BMD) of the left hip total was found to be 0.737 gm/cm2. This corresponds to a T-score standard deviations from the mean of young adults of -1.7. Femoral neck is 0.594 gm/cm2 with a T-score (standard deviations from the mean of young adults) of -2.3. When compared to the previous study of 08/08/2023 there has been no significant changes in bone density. SUMMARY: Bone mineral density shows evidence of low bone mass at the proximal femur and moderately increased fracture risk (Osteopenia). There has been no significant changes in bone density since previous measurement. L4 excluded from bone mineral density analysis of the lumbar spine due to bone density being more than 1 standard deviation discrepant relative to one adjacent vertebra. Clinical correlation is recommended. The lumbar spine Trabecular Bone Score is 1.329 which suggests normal bone microarchitecture, compared to the general population. Final decisions regarding diagnostic or therapeutic recommendations should include BMD, TBS, additional clinical risk factors as well the clinical context of the patient. Please see attached TBS results for further details. ADDITIONAL COMMENTS: Postmenopausal Women and Men Over 50: Diagnostic criteria: Osteoporosis: BMD at or below -2.5 T-score; Osteopenia (low bone mass): BMD between -1.0 and -2.5 T-score. If the patient has a history of a fragility fracture, a fracture that occurred with trauma equivalent to a fall from a standing position or less, then the diagnosis is osteoporosis regardless of bone density. The history and data sections of the bone mineral density scan were prepared by Mae Salazar) ANTONINA who is accredited by the International Society of Clinical Densitometry. The overall patient assessment and scan interpretation were performed by Veronica Wilde M.D. who is certified by the International Society of Clinical Densitometry. [id number] Veronica Wilde MD IMG DXA PROCEDURES Final R esult from Last [address] [place] [address] MEDICARE [employer] MEDICARE SUPPLEMENT [facility] MEDICARE SUPPLEMENT INSURANCE MEDICARE [facility] Address: [address] [address] [place] [address] [facility]LY [facility] HEALTHCARE [facility] HMO/PPO Address: [address] [place] [phone] [facility] MEDICARE SUPPLEMENT INSURANCE MEDICARE [facility] Address: [address] [address] [place] [address] HUMAN MEDICARE SUPPLEMENT Care Teams [employer] Resource Teacher Relationship Specialty Start Date End Date Jordana Randle MD PCP - General Family Medicine 10/24/23
--- OUTSIDE RECORDS SUMMARY | 2024-11-16 12:48 | XMS_ITS | Encounter Summary ---
Author Organization [employer] Address 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
--- OUTSIDE RECORDS SUMMARY | 2024-11-16 12:48 | XMS_ITS | Clinical Summary ---
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
--- OUTSIDE RECORDS SUMMARY | 2024-11-16 12:48 | XMS_ITS | Clinical Summary ---
Author Organization [facility] Address [facility] [place] [address] Care Team Providers Care Frit Mixer Name Role Phone Jordana Randle MD Primary [...] times a day 025 Discontin ued(Other ) Active Problems Problem [...] tobacco 04/29/2012 Overview (10/10/2017): Description: 08/03/12aw, 03/09/13nt Encounters Date Type Department Care Team Description 11/08/2024 11:24 AM CDT - 11/08/2024 11:59 PM CDT Hospital Encounter [address] [place] [address] Osteoporosis, unspecified osteoporosis type, unspecified pathological fracture presence (Primary Dx) Discharge Disposition: Discharge to home or self care 11/03/2024 11:45 AM CDT Lab [facility] [address] [facility] [address] [place] [address] Other osteoporosis without current pathological fracture; At high risk for falls 11/03/2024 11:00 AM CDT Office Visit [facility] [address] [facility] [address] [place] [address] Veronica Wilde MD Other osteoporosis without current pathological fracture (Primary Dx); At high risk for falls 11/03/2024 10:30 AM CDT Clinical Support [facility] [address] [facility] [address] [place] [address] Other osteoporosis without current pathological fracture (Primary Dx); Osteoporosis, unspecified osteoporosis type, unspecified pathological fracture presence 11/03/2024 Results Follow-Up [facility] [address] [facility] [address] [place] [address] Veronica Wilde MD Comprehensive metabolic panel, Phosphorus, Vitamin D 25 hydroxy, eGFR 11/03/2024 Telephone [facility] [address] [facility] [address] [place] [address] Veronica Wilde MD from Last 3 Months Surgical History Surgery Date Site/Laterality Comments BACK [...] on file 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 Sex Female 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 Gender Identity Not on file Sexual Orientation [...] 11/03/2024 10:56 AM CDT Plan of Treatment Health Maintenance Due Date Last Done Comments Depression Screening 1945 Fall Risk Assessment 1945 Hepatitis C Screening 1945 DTaP/Tdap/Td Vaccine (1 - Tdap) 1958 Hepatitis B Screening 1965 Pneumococcal vaccine 65+ (1 of 1 - PCV) 1997 Zoster Vaccine (1 of 2) 1997 Well Visit 65+ 2012 Influenza Vaccine (Season Ended) 2025 04/04/2021, 04/18/2020, 04/29/2019, Additional history exists Osteoporosis Screening-Bone Density Scan 11/03/2026 11/03/2024, 08/18/2023, 08/08/2023 Procedures Procedure Name Priority Date/Time [...] 0 AM CDT 11/03/2024 1:53 PM CDT us Veronica Wilde MD LAB BLOOD ORDERABLES Final Result [facility] [place] [address] * Vitamin D 25 hydroxy (11/03/2024 11:50 AM CDT) Vitamin D 25-OH 59 30 - 80 ng/mL Blood 11/03/2024 11:5 0 AM CDT 11/03/2024 1:50 PM CDT Veronica Wilde MD LAB BLOOD ORDERABLES Final Result Performing Organization Address City/[facility] Co de Phone Number [facility] Department [place] [address] * Phosphorus (11/03/2024 11:50 AM CDT) Pathologist [facility] Phosphorus, pl 3.0 2.3 - 4.5 mg/dL Blood 11/03/2024 11:5 0 AM CDT 11/03/2024 1:50 PM CDT Veronica Wilde MD LAB BLOOD ORDERABLES Final Result Performing Organization Address [facility] de Phone Number [facility] Department [place] [address] * (ABNORMAL) Comprehensive metabolic panel (11/03/2024 11:50 AM CDT) [facility] Sodium 141 135 - 145 mmol/L Potassium, pl 4.0 3.3 - 4.9 mmol/L [facility] Chloride 102 97 - 110 mmol/L [facility] CO2 33(H) 22 - 32 mmol/L [facility] Anion gap 6 2 - 15 mmol/L [facility] BUN 9 6 - 25 mg/dL [facility] Creatinine 0.79 0.60 - 1.10 mg/dL [facility] Glucose 105 70 - 199 mg/dL [facility] Comment: Interpretive Data Fasting glucose >/= 126 [...] classification and Diagnosis of Diabetes Diabetes Care 202; 46: S19-S40. Current interpretive data was last revised 2022. Calcium 10.0 8.5 - 10.3 mg/dL [facility] Bilirubin, total 0.4 0.1 - 1.2 mg/dL [facility] Protein, pl 7.6 6.5 - 8.5 g/dL [facility] Albumin 5.0 3.5 - 5.0 g/dL [facility] Alk phos 42 40 - 130 Units/L [facility] ALT 17 7 - 45 Units/L [facility] AST 30 10 - 45 Units/L [facility] Blood 11/03/2024 11:5 0 AM CDT 11/03/2024 1:50 PM CDT us Veronica Wilde MD LAB BLOOD ORDERABLES Final Result [facility] Department [place] [address] * Dexa TBS Axial Skeleton Bone Density 1 or more sites (11/03/2024 10:35 AM CDT) Anatomical Region Laterality Modality Wrist, Body N/A Radiographic Gladys ging Narrative 11/03/2024 11:34 AM CDT Patient Name: Barbie Chaudhary Date of : 1945 Date of scan: 11/03/2024 Bone mineral density was performed on a [employer] Discovery Densitometer. Based on machine cross-calibration and [...] by the International Society of Clinical Densitometry. [id number] us Veronica Wilde MD IMG DXA PROCEDURES Final R esult from Last 3 Months Insurance MEDICARE [facility] MEDICARE SUPPLEMENT [facility] MEDICARE SUPPLEMENT INSURANCE MEDICARE [facility] MEDICARE SUPPLEMENT INSURANCE MEDICARE [employer] MEDICARE SUPPLEMENT Care Teams Frit Mixer Relationship Specialty Start Date End Date Jordana Randle MD PCP - General Family Medicine 10/24/23
--- OUTSIDE RECORDS SUMMARY | 2024-11-16 12:48 | XMS_ITS | Clinical Summary ---
Author Organization [facility] Address [address] [place] [address] Phone Care Team Providers Care Executive Sous Chef Name Role Phone Marcellus Damon MD Primary Care Provider [phone] Dmitriy Pak DO Unavailable [phone] Allergies Active Allergy Reactions Criticality Noted Date [...] Insurance MEDICARE [employer] MEDICARE SUP Care Teams Executive Sous Chef Relationship Specialty Start Date End Date Marcellus Damon MD [address] [place] [phone] PCP - General Family Medicine 04/05/16 Dmitriy Pak DO [address] [place] [address] Gastroenterology 04/05/16
[2024-11-16 12:50] VITALS: BP 133/89; PULSE 84; RESP 16; TEMP 36.4; O2SAT 100
--- NOTE | 2024-11-16 12:50 | ED_ITS ---
HPI - Skin/Abscess/Foreign Bdy General Chief complaint: Skin/Abscess/Foreign Body Stated complaint: rash Time Seen by Provider: 11/16/24 12:45 Source: patient Mode of arrival: ambulatory Limitations: no limitations History of Present Illness HPI narrative: Patient is a 79-year-old female presenting with complaint of rash. She reports rash to her right shoulder going up into the neck area. Area was noted 2 weeks ago. She describes the rash as red and itchy. Patient has been applied triamcinolone cream as well as clobetasol. The itchiness worse at night and when exposed to heat. No similar rash about household members. No new hygiene products. No new medications. No new foods. No constitutional symptoms. No additional complaints. Related Data Home Medications ?Medication ?Instructions ?Recorded ?Confirmed ?Last Taken ?Type clonazepam 0.5 mg tablet 0.5 mg PO DAILY PRN Anxiety 02/14/23 11/16/24 Unknown History Allergies Allergy/AdvReac Type Severity Reaction Status Date / Time adhesive Allergy Mild Rash/Irrita Verified 11/16/24 12:51 tion amitriptyline Allergy Unknown Dizziness Verified 11/16/24 12:51 duloxetine Allergy Unknown Vomiting Verified 11/16/24 12:51 nortriptyline Allergy Unknown Constipatio Verified 11/16/24 12:51 n Opioids - Morphine Analogues Allergy Unknown Dizziness Verified 11/16/24 12:51 codeine AdvReac Mild NAUSEA Verified 11/16/24 12:51 Sulfa (Sulfonamide AdvReac Mild Nausea and Verified 11/16/24 12:51 Antibiotics) Vomiting Review of Systems Review of Systems: All systems reviewed & are unremarkable except as noted in HPI and below Constitutional: Constitutional: Denies body ache(s), Denies chills, Denies fatigue, Denies fever(s), Denies headache(s), Denies malaise, Denies night sweats, Denies poor appetite, Denies weakness and Denies weight loss Eyes: Eyes: Denies blurry vision, Denies irritation and Denies loss of vision ENT: Denies otalgia, Denies headache(s), Denies nasal discharge, Denies sinus pain and Denies sore throat Cardiovascular: Cardiovascular: Denies chest pain, Denies irregular heart rhythm and Denies dyspnea Respiratory: Respiratory: Denies dyspnea Gastrointestinal: Gastrointestinal: Denies abdominal pain, Denies melena, Denies hematochezia, Denies diarrhea, Denies nausea and Denies vomiting Musculoskeletal: Musculoskeletal: Denies back pain, Denies myalgias and Denies arthralgias Integumentary/Breasts: Skin/Breast: Reports pruritus and Reports rash Neurologic: Denies headache(s), Denies loss of vision and Denies weakness Psychiatric: Psychiatric: Reports no additional psychiatric complaints Endocrine: Endocrine: Denies fatigue Hematologic/Lymphatic: Hematologic/Lymphatic: Denies easy bleeding, Denies easy bruising and Denies lymphadenopathy Allergic/Immunologic: Allergic/Immunologic: Denies urticaria, Denies itchy eyes, Denies lip swelling, Denies throat swelling, Denies tongue swelling and Denies wheezing PMFSH Past Medical History Medical History Mouth sore Myalgia Anemia Anorexia Chronic LUQ pain COVID-19 Chronic jaw pain Asthma, mild intermittent Trigeminal neuralgia of left side of face Sclerosing bone dysplasia (~2018) Generalized osteoarthritis of multiple sites NAFLD (nonalcoholic fatty liver disease) HLD (hyperlipidemia) Gastric ulcer Inflammatory arthritis Depression Anxiety Osteoporosis Chronic narcotic use Arthritis Fibromyalgia Chronic GERD HTN (hypertension) Surgical History Surgical History Hx of esophagogastroduodenoscopy Hx of colonoscopy History of back surgery 2007 Hx laparoscopic cholecystectomy Family History Family History Sibling Hypertension Family history of malignant neoplasm Other Family history of lung disease Social History Social History Smoking status: Never smoker Second hand tobacco smoke exposure: No Alcohol intake: never Substance use: never Substance use type: does not use Lack of Transportation: No Lack of Food: Never True Current Housing: I Have Housing Concerned About Future Housing: No Difficulty Paying Gas/Electric Bills: No Difficulty Paying for Meds: No Currently Unemployed: No Education: Master's Degree or Higher Difficulty w/ Childcare or Family Care: Decline to Answer Living arrangements: with family Gender identity (if verbalized by the patient): Female Spiritual care concerns: No Comments At time of signature, agree with nursing past medical, surgical, social and family history. There is no relevant family history pertinent to the presenting complaint. Exam Const: General: cooperative, healthy appearing, comfortable, no acute distress and well nourished Nutritional Appearance: well nourished Orientation/consciousness: patient oriented x3 Limitations: no limitations HENMT: Head: normal to inspection, normocephalic and atraumatic Ears: hearing grossly normal bilaterally Face/Nose/Sinus: Normal external nose present, normal facial exam and face symmetric Face and sinus: normal facial exam and face symmetric Mouth: Yes lip normal Eyes: General: appearance normal, both eyes and all related structures Alignment and Position: alignment normal and position normal Periorbital: periorbital findings normal Eyelids: eyelids normal Pupils: Equal, round and reactive pupils present EOM: EOMs intact bilaterally Neck: Neck: normal visual inspection, full ROM and supple Chest: Chest palpation & inspection: normal inspection of the chest Resp: Effort & Inspection: normal respiratory effort and able to speak in complete sentences Cardio: Rate: regular rate Skin: Rashes: rashes noted (Erythematous, confluent, maculopapular eruption ) right shoulder and other Neuro: General: patient oriented x3 and moves all extremities Cranial nerves: Yes Equal, round and reactive pupils present Speech: normal speech Gait exam (Neuro): Normal gait present Extrem: General: normal to inspection and full ROM Psych: Appearance: grossly normal and well kempt Mental Status: mental status grossly normal Speech and movement: Normal speech and movement present Affect: normal affect Attitude: cooperative Thought process: Normal thought process present Course Course Emergency Course: Patient is aware of diagnosis, understands and agrees to treatment plan. Anticipatory guidance given. Patient agrees to follow-up as directed and is aware of reasons to seek care at the emergency department. Portions of this record may have been created with voice recognition software Level of Care: Express Care Visit Vital Signs Vital signs: Vital Signs Temperature 36.4 C 11/16/24 12:50 Pulse Rate 84 11/16/24 12:50 Respiratory Rate 16 11/16/24 12:50 Blood Pressure 133/89 11/16/24 12:50 Pulse Oximetry 100 11/16/24 12:50 Oxygen Delivery Room Air 11/16/24 12:50 Temperature 36.4 C 11/16/24 12:50 Pulse Rate 84 11/16/24 12:50 Respiratory Rate 16 11/16/24 12:50 Blood Pressure 133/89 11/16/24 12:50 Pulse Oximetry 100 11/16/24 12:50 Oxygen Delivery Room Air 11/16/24 12:50 Reviewed MDM - Skin/Abscess/Foreign Bdy MDM Narrative Medical decision making narrative: Pt well hydrated appearing, in no respiratory distress, hemodynamically stable. Recommend supportive care. The patient is stable at time of discharge the clinical impression was discussed and the patient was given the opportunity to ask questions, which were addressed as completely as possible given the information available at present. Anticipatory guidance and return to care precautions were discussed and the importance of primary care follow-up was stressed and encouraged. The patient voiced understanding of the plan, indications to return, and the need for follow-up. Exam findings show no acute concerns or changes Patient is appropriate for outpatient treatment and follow-up. Differential Diagnosis Differential diagnosis: Likely abscess of skin or subcutaneous tissue, viral exanthem, urticaria, herpes zoster, allergic reaction to drug, cellulitis, eczema, insect bites and contact dermatitis Medical Records Attestation: I reviewed the patient's medical records. Discharge Plan Discharge Clinical Impression: Dermatitis Patient Disposition: Home Condition: Stable Instructions: Dermatitis (ED) Additional Instructions: The most important part of your care is follow up with Primary care provider. Take Benadryl 25-50 mg every 6 hours for itching Take Claritin, Zyrtec, or Alice daily for the next 7 days Take the steroids starting today Avoid hot showers, Take cool showers. Wash the area with gentle soap and water only. Use skin cream as prescribed to reduce itchiness Avoid scratching when possible to prevent worsening of the condition and disruption of the skin that could lead to bacterial infection To relieve itching, place a cool washcloth or some ice over the area that itches, rather than scratching Follow up with primary care provider or seek ER if you have trouble breathing, become hoarse, or start wheezing, develop belly cramps, vomiting or feel dizzy. Patient Language: Mozambican Prescriptions: New prednisone 10 mg tablet See Rx Instructions .ROUTE .COMPLEX Qty: 21 0RF Rx Instructions: 40 mg daily for 3 days, 20 mg daily for 3 days, 10 mg daily for 3 days triamcinolone acetonide 0.1 % cream 1 applic topical TID 5 Days Qty: 80 0RF No Action clonazepam 0.5 mg tablet 0.5 mg PO DAILY PRN (Reason: Anxiety) pantoprazole 40 mg tablet,delayed release (DR/EC) 40 mg PO QAM Qty: 90 3RF zolpidem 10 mg tablet 10 mg PO QHS Qty: 90 1RF tramadol 50 mg tablet 50 mg PO DAILY PRN (Reason: Pain) Qty: 30 2RF gabapentin 300 mg capsule See Rx Instructions .ROUTE .COMPLEX Qty: 360 1RF Dose Instruction: TAKE 2 CAPSULES BY MOUTH THREE TIMES DAILY Rx Instructions: TAKE 2 CAPSULES BY MOUTH THREE TIMES DAILY amlodipine 5 mg tablet 5 mg PO .q hs Qty: 90 3RF Follow-up/Referrals: Jordana Randle MD [Primary Care Provider] - Time of Disposition: 13:26
== END 2024-11-16 13:29 | disposition home or self-care (01) ==
PROVIDERS: Emergency Provider Nurse Practitioner Family; PCP Family Medicine
DX: L30.9 Dermatitis, unspecified (principal); E78.5 Hyperlipidemia, unspecified; M81.0 Age-related osteoporosis without current pathological fracture; F41.8 Other specified anxiety disorders; I10 Essential (primary) hypertension; K21.9 Gastro-esophageal reflux disease without esophagitis
CPT/HCPCS: 99213; G0463

== ENCOUNTER 2025-01-31 13:07 | Emergency (ER) | payer MEDICARE, SELFPAY ==
--- OUTSIDE RECORDS SUMMARY | 2025-01-31 13:13 | XMS_ITS | Clinical Summary ---
Author Organization [facility] Address [facility] [place] [address] Care Team Providers Care Stitcher Special Machine Name Role Phone Unavailable Primary Care Provider Unavailabl e Allergies Active Allergy Reactions Criticality Noted Date Comments Alendronate Rash Low 04/30/2017 Amitriptyline Unknown 05/10/2014 Codeine Nausea and Vomiting,Unknown Low 01/24/20 16 Duloxetine Hcl Rash Low 06/17/2018 Naproxen Unknown 05/10/2014 Sulfa Antibiotics Unknown 05/10/2014 Tape Unknown 04/08/2016 Medications gabapentin 300 MG capsule Take 300 mg by mouth. 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 Chronic pain 01/31/2016 Adrenal adenoma 09/21/2015 Osteoporosis, postmenopausal 08/10/2015 Mass of adrenal gland ([facility]) 07/17/2015 Esophageal reflux 05/30/2015 History [...] Comments Blood Pressure 124/76 06/17/2018 1:35 PM CURER ACID DRUM Pulse 75 06/17/2018 1:35 PM CURER ACID DRUM Temperature 36.1 C (97 F) 06/17/2018 1:35 PM CURER ACID DRUM Respiratory Rate 16 06/17/2018 1:35 PM CURER ACID DRUM Oxygen Saturation 94% 06/17/2018 1:35 PM CURER ACID DRUM Inhaled Oxygen Concentration - - Weight 45 kg (99 lb 3 oz) 06/17/2018 1:35 PM CURER ACID DRUM Height 161.3 cm (5' 3.5) 06/17/2018 1:35 PM CURER ACID DRUM Body Mass Index 17.29 06/17/2018 1:35 PM CURER ACID DRUM Plan of Treatment Upcoming Encounters Date Type Department Care Team (Late st Contact Info) Description 03/15/2025 10:30 AM CDT Office Visit [facility] - [place] [address] [place], [place] [id number] Zakiya Nolen MD [address] [place], [place] [id number] Health Maintenance Due Date Last Done Comments [...] - 1-dose 75+ series) 2022 COVID-19 Vaccine (1 - 2023-2 5 season) 2024 Meningococcal B [...] equation in the estimation of LDL-C. Cody SS et al. JORDAN. 2013;310(19): 0920-5862 (http://education.IO.com/faq/IDJ922) CHOL/HDL RATIO 2.3 <5.0 (calc) [facility] TO EPIC CONVERSION NON HDL CHOLESTEROL 124 <130 [facility] TO EPIC CONVERSION Comment: Result Comment: UNITS: mg/dL (calc) For patients with diabetes plus 1 major ASCVD risk factor, treating to a non-HDL-C goal of <100 mg/dL (LDL-C of <70 mg/dL) is considered a therapeutic option. 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
--- OUTSIDE RECORDS SUMMARY | 2025-01-31 13:13 | XMS_ITS | Encounter Summary ---
Author Organization [facility] Address 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
--- OUTSIDE RECORDS SUMMARY | 2025-01-31 13:13 | XMS_ITS | Clinical Summary ---
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
--- OUTSIDE RECORDS SUMMARY | 2025-01-31 13:13 | XMS_ITS | Clinical Summary ---
Author Organization [facility] Address [address] [place] [address] Phone Care Team Providers Care Warp Hanger Name Role Phone Marcellus Damon MD Primary Care Provider [phone] Dmitriy Pak DO Unavailable [phone] Allergies Active Allergy Reactions Criticality Noted [...] (Adult) (1 - 1-dose 75+ series) 2022 SARS-COV-2 Immunization ( season) 2024 09/29/2020, 09/08/2020 Influenza Immunization (#1) 02/28/202505/30, 04/08/2017 Colonoscopy Discontinued 05/17/2019, 04/03/2016 Colorectal Cancer Screening Discontinued Cologuard Discontinued Hepatitis B Immunization Aged Out No longer eligible based on patient's age to complete this topic Human Papillomavirus (HPV) Immunization Aged Out No longer eligible based [...] Insurance MEDICARE [employer] MEDICARE SUP Care Teams Warp Hanger Relationship Specialty Start Date End Date Marcellus Damon MD [address] [place] [phone] PCP - General Family Medicine 04/05/16 Dmitriy Pak DO [address] [place] [address] Gastroenterology 04/05/16
--- OUTSIDE RECORDS SUMMARY | 2025-01-31 13:14 | XMS_ITS | Clinical Summary ---
Author Organization [facility] Address [address] [place] [address] Care Team Providers Care Wood Engraver Name Role Phone Jordana Randle MD Primary Care Provider [phone] Source Comments [facility],non-owned Affiliates and Associated Physician Practices is amultiple site organization consisting of ambulatory clinics and hospital sitesin [place], [place], [place] and [place]. This disclosure is being madepursuant to the Care Everywhere program and may not contain all information available regarding this patient. Last updated 18.[facility] [employer] Allergies Active Allergy Reactions Criticality Noted Date [...] Active Additional Information Patient not taking.Reported on 12/28/2024 cevimeline (Evoxac) 30 MG capsule Take 1 (one) capsule by mouth 3 times daily 90 capsule 2 5 Active Additional Information Patient not taking.Reported on 12/28/2024 fluconazole (Diflucan) 100 MG tablet Take two tablets by mouth on the first day and one tablet by mouth everyday thereafter until complete. 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 Rash and nonspecific skin eruption 04/29/2012 Encounters Date Type Department Care Team Description 01/11/2025 Travel 12/28/2024 10:45 AM CDT Office Visit [facility] - ENT [address] [place] [address] Mehrdad Archibald MD Keratosis obturans of external ear canal, right (Primary Dx) 12/28/2024 Travel 11/11/2024 Travel 11/11/2024 Telephone [facility] - Centralized Scheduling [address] [place] [phone] Mehrdad Archibald MD Reschedule Appointment from Last 3 Months Immunizations Immunization Administration Dates Next Due FLU VACCINE TRI IIV3 SPLIT P F IM (FLUVIRIN) 06/08/2018 INFLUENZA VACCINE 04/04/2021, 0,04/29/2019,2017,04/08/2017,04/08/2017 INFLUENZA VACCINE, ADJUVANTE D, QUADR. (FLUAD QUADRIVALENT; [...] Sex Assigned at Female 06/03/2023 10:16 PM CALL OUT OPERATOR Legal Sex Female 6:23 AM CALL OUT OPERATOR Gender Identity Female 06/03/2023 10:16 PM CALL OUT OPERATOR Sexual Orientation Not on file Last Filed Vital Signs Vital Sign Reading Time Taken Comments Blood Pressure 164/92 12/28/2024 10:24 AM CDT Pulse 71 12/28/2024 10:24 AM CDT Temperature 36.4 C (97.5 F) 09/30/2022 8:40 AM CDT Respiratory Rate 14 09/30/2022 8:55 AM CDT Oxygen Saturation 95% 05/13/2023 11:38 AM CALL OUT OPERATOR Inhaled Oxygen Concentration - - Weight 44.5 kg (98 lb) 12/28/2024 10:24 AM CDT Height 162.6 cm (5' 4) 12/28/2024 10:24 AM CDT Body Mass Index 16.82 12/28/2024 10:24 AM CDT Plan of Treatment Upcoming Encounters Date Type Department Care Team (Late st Contact Info) Description 03/22/2025 10:30 AM CDT Office Visit [facility] - ENT [address] [place] [phone] Mehrdad Archibald MD [address] [place] [address] [place] [address] Health Maintenance Due Date Last Done Comments BONE DENSITY TESTING 1945 MEDICARE AWV 12 MONTHS 1945 DTAP/TDAP/TD VACCINES (1 - Tdap) 1966 ZOSTER VACCINE (1 of 2) 1997 Respiratory Syncytial Virus (RSV) Vaccine Pt: or over 60 yrs (1 - 1-dose 75+ series) 2022 COVID-19 VACCINE ( - 2024-25 season) 2024 09/29/2020, 09/08/2020 DEPRESSION SCREENING 06/30/2024 INFLUENZA VACCINE (#1) 2025 , 04/02/2022, 04/04/2021, Additional history exists HEPATITIS C [...] Procedure Name Priority Date/Time Associated Diagnosis Comments VA REMOVE CERUMEN IMPACTED W INSTR RT EAR Routine 12/28/2024 10:47 AM CDT Keratosis obturans of external ear canal, right HEPATITIS SCREEN ACUTE Routine 05/21/2013 3:57 PM CALL OUT OPERATOR from Last 3 Months or Most Recently Relevant to Health Maintenance Results * VA REMOVE CERUMEN IMPACTED W INSTR RT EAR (12/28/2024 10:47 AM CDT) Narrative Mehrdad Archibald MD - 12/28/2024 10:47 AM CDT Mehrdad Archibald MD 12/28/2024 10:48 AM Indication: Excessive Cerumen Impaction Procedure: Micro-otoscopy - VA REMOVE CERUMEN IMPACTED W INSTR: [[id number] RT] Procedure Note: Verbal consent for the [...] right had normal landmarks and mobility. Abnormalities: dried scab and epithelial debris against the anterior canal wall, debrided Small amount of bleeding, stopped immediately, TM without a layer of epithelium on exam today Mehrdad Archibald MD Mehrdad Archibald MD PROCEDURE/MINOR SURGICAL ORD ERABLES Final Result * HEPATITIS SCREEN ACUTE (05/21/2013 3:57 PM CALL OUT OPERATOR) Hepatitis A Virus Antibody IgM NON-REACTI VE NON-REACT [facility] ([facility]) Comment: Test Performed at: [facility] [address] [place] [address] AVINASH MELVIN DO,MPH Hepatitis B Virus Surface Antigen NON-REACTI VE NON-REACT [facility]) Hepatitis B Core Virus Antibody IgM NON-REACTI VE NON-REACT [facility] ([facility]) Hepatitis C Antibody NON-REACTI VE NON-REACT [facility]) Signal/Cutoff 0.01 <1.00 [facility]) 05/21/2013 3:57 PM CALL OUT OPERATOR 05/21/2013 3:58 PM CALL OUT OPERATOR [facility] Jenny Drew MD LAB - CHEMISTRY ORDERABLES Fi nal Result [facility] ([facility]) [id number] from Last 3 Months or Most Recently Relevant to Health Maintenance [place] [address] MEDICARE [facility] [place] [address] MEDICARE MEDICARE [facility] MEDICARE [employer] [place] [employer]ICARE [place] [place] [employer]ICARE [employer] [place]IC[place] [place] MEDICARE [employer] [place] MEDICARE [employer] [place] [employer] [place]ICARE [place] [place]ICARE [place] [employer] [place] MEDICARE [place] [place] MEDICARE [place] [place] [place]ICARE [place] [place] MEDICARE [place] [place] MEDICARE [place] MEDICARE [employer] [place] [employer] [place] MEDICARE [employer] [place] MEDICARE M[employer] [place] MEDICARE [employer] RACHEL [facility] Care Teams Wood Engraver Relationship Specialty Start Date End Date Jordana Randle MD [address] [place] [phone] PCP - General Family Medicine 01/21/23
--- OUTSIDE RECORDS SUMMARY | 2025-01-31 13:14 | XMS_ITS | Clinical Summary ---
Author Organization [facility] Address [facility] [place] [address] Care Team Providers Care Print Color Operator Name Role Phone Jordana Randle MD [...] total) by mouth every morning 2 Active Active Problems Problem Noted Date Diagnosed [...] - 11/08/2024 11:59 PM CDT Hospital Encounter [address] [address] Osteoporosis, unspecified osteoporosis type, unspecified pathological fracture presence (Primary Dx) Discharge Disposition: Discharge to home or self care 11/03/2024 11:45 AM CDT Lab [facility] [address] [facility] [address] [place] [address] Other osteoporosis without current pathological fracture; At high risk for falls 11/03/2024 11:00 AM CDT Office Visit [facility] [address] [facility] [address] [place] [address] Veronica Wilde MD Other osteoporosis without current pathological fracture (Primary Dx); At high risk for falls 11/03/2024 10:30 AM CDT Clinical Support [facility] [address] [facility] [address] [place] [address] Other osteoporosis without current pathological fracture (Primary Dx); Osteoporosis, unspecified osteoporosis type, unspecified pathological fracture presence 11/03/2024 Results Follow-Up [facility] [address] [facility] 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 Gender Identity Not on file Sexual Orientation [...] 10:56 AM CDT Height 158.8 cm (5' 2.5) 11/03/2024 10:56 AM CD T Body Mass [...] Well Visit 65+ 2012 Influenza Vaccine (#1) 2025 , 04/18/2020, 04/29/2019, Additional history exists Osteoporosis [...] BLOOD ORDERABLES Final Result Performing Organization Address [facility] Co de Phone Number [facility] [place] [address] * Vitamin D 25 hydroxy (11/03/2024 11:50 AM CDT) Pathologist [facility] Vitamin D 25-OH 59 30 - 80 ng/mL Blood 11/03/2024 11:5 0 AM CDT 11/03/2024 1:50 PM CDT Veronica Wilde MD LAB BLOOD ORDERABLES Final Result Performing Organization Address [facility] de Phone Number [facility] [place] [address] * Phosphorus (11/03/2024 11:50 AM CDT) [facility] Phosphorus, pl 3.0 2.3 - 4.5 mg/dL Blood 11/03/2024 11:5 0 AM CDT 11/03/2024 1:50 PM CDT Veronica Wilde MD LAB BLOOD ORDERABLES Final Result Performing Organization Address [facility] [place] [address] * (ABNORMAL) Comprehensive metabolic panel (11/03/2024 11:50 AM CDT) [facility] Sodium 141 135 - 145 mmol/L Potassium, pl 4.0 3.3 - 4.9 mmol/L [facility] Chloride 102 97 - 110 mmol/L [facility] CO2 33(H) 22 - 32 mmol/L [facility] Anion gap 6 2 - 15 mmol/L [facility] BUN 9 6 - 25 mg/dL [facility] Creatinine 0.79 0.60 - 1.10 mg/dL [facility] Glucose 105 70 - 199 mg/dL [facility] Comment: Interpretive Data Fasting glucose >/= 126 [...] 2022. Calcium 10.0 8.5 - 10.3 mg/dL [facility] Bilirubin, total 0.4 0.1 - 1.2 mg/dL [facility] Protein, pl 7.6 6.5 - 8.5 g/dL [facility] Albumin 5.0 3.5 - 5.0 g/dL [facility] Alk phos 42 40 - 130 Units/L [facility] ALT 17 7 - 45 Units/L [facility] AST 30 10 - 45 Units/L [facility] Blood 11/03/2024 11:5 0 AM CDT 11/03/2024 1:50 PM CDT Veronica Wilde MD LAB BLOOD ORDERABLES Final Result [facility] Department [place] [address] * Dexa TBS Axial Skeleton Bone Density 1 or more sites (11/03/2024 10:35 AM CDT) Anatomical Region Laterality Modality Wrist, Body N/A Radiographic Gladys ging Narrative 11/03/2024 11:34 AM CDT Patient Name: Barbie Chaudhary Date of : 1945 Date of scan: 11/03/2024 Bone mineral density was performed on a HoloWinestyr Discovery Densitometer. Based on machine cross-calibration and [...] by the International Society of Clinical Densitometry. [id number] Veronica Wilde MD IMG DXA PROCEDURES Final R esult from Last 3 [place] [address] MEDICARE [facility] MEDICARE SUPPLEMENT [facility] MEDICARE SUPPLEMENT INSURANCE MEDICARE [facility] Address: [address] [address] [place] [address] [facility] HEALTHCARE [facility] MEDICARE SUPPLEMENT INSURANCE MEDICARE [employer] MEDICARE SUPPLEMENT Care Teams Print Color Operator Relationship Specialty Start Date End Date Jordana Randle MD PCP - General Family Medicine 10/24/23
--- OUTSIDE RECORDS SUMMARY | 2025-01-31 13:14 | XMS_ITS | Referral Summary ---
Author Organization [facility] Address [address] [place] [address] Care Team Providers Care Customer Service Engineer Name Role Phone Jordana Randle MD Primary Care Provider + Encounters Date Type Department Care Team Description 11/08/2024 11:24 AM CDT - 11/08/2024 11:59 PM CDT Hospital Encounter [facility] [address] [place] [address] Osteoporosis, unspecified osteoporosis type, unspecified pathological fracture presence (Primary Dx) Discharge Disposition: Discharge to home or self care 11/03/2024 Results Follow-Up [facility] [address] [facility] [address] [place] [address] Veronica Wilde MD Comprehensive metabolic panel, Phosphorus, Vitamin D 25 hydroxy, eGFR 11/03/2024 Telephone [facility] [address] [facility] Medical Office Building [address] [place] [address] Veronica Wilde MD 11/03/2024 11:45 AM CDT Lab [facility] [address] [place] [address] [address] [place] [address] Other osteoporosis without current pathological fracture; At high risk for falls 11/03/2024 10:30 AM CDT Clinical Support [facility] [address] [facility] [address] [place] [address] Other osteoporosis without current pathological fracture (Primary Dx); Osteoporosis, unspecified osteoporosis type, unspecified pathological fracture presence 11/03/2024 11:00 AM CDT Office Visit [facility] [address] [facility] [address] [place] [address] Veronica Wilde MD Other osteoporosis without current [...] on file 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 Gender Identity Not on file Sexual Orientation Not on file Occupation Industry Job Start Date Job End Date Retired [employer] Not on file Not on file [...] BLOOD ORDERABLES Final Result Performing Organization Address City/[facility]/ZIP Co de Phone Number [facility] [place] [place] [address] * Vitamin D 25 hydroxy (11/03/2024 11:50 AM CDT) Vitamin D 25-OH 59 30 - 80 ng/mL Blood 11/03/2024 11:5 0 AM CDT 11/03/2024 1:50 PM CDT Veronica Wilde MD LAB BLOOD ORDERABLES Final Result [facility] [place] [address] * Phosphorus (11/03/2024 11:50 AM CDT) Phosphorus, pl 3.0 2.3 - 4.5 mg/dL Blood 11/03/2024 11:5 0 AM CDT 11/03/2024 1:50 PM CDT Veronica Wilde MD LAB BLOOD ORDERABLES Final Result [facility] [address] [facility] [place] [address] * (ABNORMAL) Comprehensive metabolic panel (11/03/2024 11:50 AM CDT) Pathologist [facility] Sodium 141 135 - 145 mmol/L Potassium, pl 4.0 3.3 - 4.9 mmol/L [facility] Chloride 102 97 - 110 mmol/L [facility] CO2 33(H) 22 - 32 mmol/L [facility] Anion gap 6 2 - 15 mmol/L [facility] BUN 9 6 - 25 mg/dL [facility] Creatinine 0.79 0.60 - 1.10 mg/dL [facility] Glucose 105 70 - 199 mg/dL [facility] Comment: Interpretive Data Fasting glucose >/= [...] 2022. Calcium 10.0 8.5 - 10.3 mg/dL [facility] Bilirubin, total 0.4 0.1 - 1.2 mg/dL [facility] Protein, pl 7.6 6.5 - 8.5 g/dL [facility] Albumin 5.0 3.5 - 5.0 g/dL [facility] Alk phos 42 40 - 130 Units/L [facility] ALT 17 7 - 45 Units/L [facility] AST 30 10 - 45 Units/L [facility] Blood 11/03/2024 11:5 0 AM CDT 11/03/2024 1:50 PM CDT us Veronica Wilde MD LAB BLOOD ORDERABLES Final Result [facility] [address] [facility] [place] [address] * Dexa TBS Axial Skeleton Bone Density 1 or more sites (11/03/2024 10:35 AM CDT) Anatomical Region Laterality Modality Wrist, Body N/A Radiographic Gladys ging Narrative 11/03/2024 11:34 AM CDT Patient Name: Barbie Chaudhary Date of : 1945 Date of scan: 11/03/2024 Bone mineral density was performed on a HoloTalent Flush Discovery Densitometer. Based on machine cross-calibration and [...] bone mineral density scan were prepared by Mea Campos(R) CBDMartin who is accredited by the International Society of Clinical Densitometry. The overall patient assessment and scan interpretation were performed by Veronica Wilde M.D. who is certified by the International Society of Clinical Densitometry. [id number] Veronica Wilde MD [facility] DXA PROCEDURES Final R esult from Last 3 Months Insurance MEDICARE [facility] MEDICARE SUPPLEMENT [facility] MEDICARE SUPPLEMENT INSURANCE MEDICARE [facility] MEDICARE SUPPLEMENT [place] [address] MEDICARE [facility] MEDICARE SUPPLEMENT Care Teams Customer Service Engineer Relationship Specialty Start Date End Date Jordana Randle MD PCP - General Family Medicine 10/24/23
[2025-01-31 13:19] VITALS: BP 143/90; PULSE 95; RESP 14; TEMP 36.8; O2SAT 100
--- NOTE | 2025-01-31 13:32 | ED.SKABFB ---
HPI - Skin/Abscess/Foreign Bdy General Chief complaint: Skin/Abscess/Foreign Body Stated complaint: wrist itching/ mouth itching Source: patient Mode of arrival: ambulatory Limitations: no limitations History of Present Illness HPI narrative: 79 y/o female presenting for complaint of sores to the corners of the mouth for several days as well as an itchy red rash to the left side for about 1 week. States she took several left over pills 'for herpes' over the past few days. Patient also states she has applied triamcinolone cream to the left side rash without any improvement. Endorses itching intermittently for months and will need a steroid. She denies pain or drainage from the site. Denies lip, tongue, or throat swelling, shortness of breath or wheezing. Denies changes to soap, detergent, lotion, or any other exposures. No one else in the house or any contacts with similar symptoms. Related Data Home Medications ?Medication ?Instructions ?Recorded ?Confirmed ?Last Taken ?Type clonazepam 0.5 mg tablet 0.5 mg PO DAILY PRN Anxiety 02/14/23 11/16/24 Unknown History Allergies Allergy/AdvReac Type Severity Reaction Status Date / Time adhesive Allergy Mild Rash/Irrita Verified 01/31/25 13:25 tion amitriptyline Allergy Unknown Dizziness Verified 01/31/25 13:25 duloxetine Allergy Unknown Vomiting Verified 01/31/25 13:25 nortriptyline Allergy Unknown Constipatio Verified 01/31/25 13:25 n Opioids - Morphine Analogues Allergy Unknown Dizziness Verified 01/31/25 13:25 codeine AdvReac Mild NAUSEA Verified 01/31/25 13:25 Sulfa (Sulfonamide AdvReac Mild Nausea and Verified 01/31/25 13:25 Antibiotics) Vomiting Review of Systems Review of Systems: CONSTITUTIONAL: Denies body aches, fever, chills, or sweats. EYES: Denies visual changes, redness, or discharge. ENT: reports mouth sores Denies rhinorrhea, congestion CARDIOVASCULAR: Denies chest pain, palpitations, or edema. RESPIRATORY: Denies cough or dyspnea. GASTROINTESTINAL: Denies abdominal pain, nausea, vomiting, or diarrhea. SKIN: reports rash left side MUSCULOSKELETAL: Denies back pain, joint pain, or myalgia. NEUROLOGIC: Denies headache, numbness, tingling, or weakness. 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 NAFLD (nonalcoholic fatty liver disease) HLD (hyperlipidemia) Gastric ulcer Inflammatory arthritis Depression Anxiety Osteoporosis Chronic narcotic use Arthritis Fibromyalgia Chronic GERD HTN (hypertension) Surgical History Surgical History Hx of esophagogastroduodenoscopy Hx of colonoscopy History of back surgery 2006 Hx laparoscopic cholecystectomy Family History Family History Sibling Hypertension Family history of malignant neoplasm Other Family history of lung disease Social History Social History Smoking status: Never smoker Second hand tobacco smoke exposure: No Alcohol intake: never Substance use: never Substance use type: does not use Lack of Transportation: No Lack of Food: Never True Current Housing: I Have Housing Concerned About Future Housing: No Difficulty Paying Gas/Electric Bills: No Difficulty Paying for Meds: No Currently Unemployed: No Education: Master's Degree or Higher Difficulty w/ Childcare or Family Care: Decline to Answer Living arrangements: with family Gender identity (if verbalized by the patient): Female Spiritual care concerns: No Comments At time of signature, I have reviewed and agree with nursing past medical, surgical, social and family history unless otherwise noted. Please see nursing chart for further information. There is no relevant family history pertinent to the presenting complaint Exam Narrative: GENERAL: Well-appearing HEAD: Normocephalic, atraumatic. EYES: conjunctivae clear, and EOMI. ENT: Mucous membranes moist. No visible sores to oral mucosa. Pt indicates pain to corners of mouth without visible lesions. Oropharynx without edema, erythema or lesions. NECK: Supple. No lymphadenopathy CHEST: Clear to auscultation. HEART: Regular rate and rhythm. SKIN: Warm, dry. Left waist area with irregular mildly erythematous patch,approx 3cm, nontender, no warmth, drainage or fluctuance. NEURO: Alert and oriented x3. Course Course Emergency Course: Patient is aware of diagnosis, understands and agrees to treatment plan. Anticipatory guidance given. Patient agrees to follow-up as directed and is aware of reasons to seek care at the emergency department. Portions of this record may have been created with voice recognition software Level of Care: Express Care Visit Vital Signs Vital signs: Vital Signs Temperature 98.3 F 01/31/25 13:19 Pulse Rate 95 01/31/25 13:19 Respiratory Rate 14 01/31/25 13:19 Blood Pressure 143/90 H 01/31/25 13:19 Pulse Oximetry 100 01/31/25 13:19 Oxygen Delivery Room Air 01/31/25 13:19 Temperature 98.3 F 01/31/25 13:19 Pulse Rate 95 01/31/25 13:19 Respiratory Rate 14 01/31/25 13:19 Blood Pressure 143/90 H 01/31/25 13:19 Pulse Oximetry 100 01/31/25 13:19 Oxygen Delivery Room Air 01/31/25 13:19 Reviewed MDM - Skin/Abscess/Foreign Bdy MDM Narrative Medical decision making narrative: Pt presented with report of a rash to the left waist area, mildly erythematous irregular patch noted. Pt requesting extended course of steroids. Shared decision making, pt is advised the small area, not systemic rash does not warrant the risk of steroids. Rx few days prednisone, low dose. She can continue otc cream or the previously prescribed steroid cream. Mouth does not appear to have any visible open sores or redness, advised supportive measures for chelitis. Discussed physical exam findings. Advised supportive measures and signs/symptoms to go to the ER. Pt is appropriate for outpt treatment and f/u. Differential Diagnosis Differential diagnosis: Likely abscess of skin or subcutaneous tissue, viral exanthem, dermatophytosis, urticaria, herpes zoster, cellulitis, eczema, insect bites, impetigo and contact dermatitis Discharge Plan Discharge Clinical Impression: Cheilitis, Dermatitis Patient Disposition: Home Condition: Stable Instructions: Antibiotic Form, Acute Rash (ED), Gingivostomatitis (ED) Additional Instructions: for mouth: Petroleum jelly, Sunblock, Lip balm, Moisturizer, and Aloe can help sooth the lips for rash: Wash the area with gentle soap and water only. Use skin cream such as Benadryl, calamine or Genesis Dry according to package directions or continue the previously prescribed steroid creams as prescribed to reduce itchiness Avoid scratching when possible to prevent worsening of the condition and disruption of the skin that could lead to bacterial infection To relieve itching, place a cool washcloth or some ice over the area that itches, rather than scratching Follow up with primary care provider or network cable installer Go to the ER if rash worsens or you have chest pain, trouble breathing, become hoarse, or start wheezing, develop belly cramps, vomiting or feel dizzy. Patient Language: Jamaican Prescriptions: New prednisone 20 mg tablet 20 mg PO DAILY Qty: 4 0RF No Action clonazepam 0.5 mg tablet 0.5 mg PO DAILY PRN (Reason: Anxiety) pantoprazole 40 mg tablet,delayed release (DR/EC) 40 mg PO QAM Qty: 90 3RF zolpidem 10 mg tablet 10 mg PO QHS Qty: 90 1RF amlodipine 5 mg tablet 5 mg PO .q hs Qty: 90 3RF tramadol 50 mg tablet 50 mg PO DAILY PRN (Reason: Pain) Qty: 30 2RF gabapentin 300 mg capsule See Rx Instructions .ROUTE .COMPLEX Qty: 360 1RF Dose Instruction: TAKE 2 CAPSULES BY MOUTH THREE TIMES DAILY Rx Instructions: TAKE 2 CAPSULES BY MOUTH THREE TIMES DAILY Follow-up/Referrals: Jordana Randle MD [Primary Care Provider] - Time of Disposition: 13:36
== END 2025-01-31 13:42 | disposition home or self-care (01) ==
PROVIDERS: Emergency Provider Nurse Practitioner Family; PCP Family Medicine
DX: K13.0 Diseases of lips (principal); L30.9 Dermatitis, unspecified; I10 Essential (primary) hypertension; J45.909 Unspecified asthma, uncomplicated; K76.0 Fatty (change of) liver, not elsewhere classified; E78.5 Hyperlipidemia, unspecified; M19.90 Unspecified osteoarthritis, unspecified site; M81.0 Age-related osteoporosis without current pathological fracture; M79.7 Fibromyalgia; F41.9 Anxiety disorder, unspecified
CPT/HCPCS: 99213; G0463

== ENCOUNTER 2025-02-21 12:49 | Outpatient (CLI) | payer MEDICARE, SELFPAY ==
--- OUTSIDE RECORDS SUMMARY | 2025-02-21 12:54 | XMS_ITS | Encounter Summary ---
Author Organization [facility] Address 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
--- OUTSIDE RECORDS SUMMARY | 2025-02-21 12:54 | XMS_ITS | Clinical Summary ---
Author Organization [facility] Address [facility] [place] [address] Care Team Providers Care Agricultural Specialist Name Role Phone Unavailable Primary Care Provider Unavailabl e Allergies Active Allergy Reactions Criticality Noted Date Comments Alendronate Rash Low 04/30/2017 Amitriptyline Unknown 05/10/2014 Codeine Nausea and Vomiting,Unknown Low 01/24/20 16 Duloxetine Hcl Rash Low 06/17/2018 Naproxen Unknown 05/10/2014 Sulfa Antibiotics Unknown 05/10/2014 Tape Unknown 04/08/2016 Medications gabapentin 300 MG capsule Take 300 mg by mouth. 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 Chronic pain 01/31/2016 Adrenal adenoma 09/21/2015 Osteoporosis, postmenopausal 08/10/2015 Mass of adrenal gland ([facility]) 07/17/2015 Esophageal reflux 05/30/2015 History of osteopenia [...] Comments Blood Pressure 124/76 06/17/2018 1:35 PM HOME STEREO EQUIPMENT INSTALLER Pulse 75 06/17/2018 1:35 PM HOME STEREO EQUIPMENT INSTALLER Temperature 36.1 C (97 F) 06/17/2018 1:35 PM HOME STEREO EQUIPMENT INSTALLER Respiratory Rate 16 06/17/2018 1:35 PM HOME STEREO EQUIPMENT INSTALLER Oxygen Saturation 94% 06/17/2018 1:35 PM HOME STEREO EQUIPMENT INSTALLER Inhaled Oxygen Concentration - - Weight 45 kg (99 lb 3 oz) 06/17/2018 1:35 PM HOME STEREO EQUIPMENT INSTALLER Height 161.3 cm (5' 3.5) 06/17/2018 1:35 PM HOME STEREO EQUIPMENT INSTALLER Body Mass Index 17.29 06/17/2018 1:35 PM HOME STEREO EQUIPMENT INSTALLER Plan of Treatment Upcoming Encounters Date Type Department Care Team (Late st Contact Info) Description 03/15/2025 10:30 AM CDT Office Visit [facility] [place] [address] [place], [place] [id number] Zakiya Nolen MD [address] [place], [place] [id number] Health Maintenance Due Date Last Done Comments [...] LDL-C. Cody SS et al. JORDAN. 2013;310(19): 0592-0655 (http://education.Senseware/faq/TCQ877) CHOL/HDL RATIO 2.3 <5.0 (calc) [facility] TO EPIC CONVERSION NON HDL CHOLESTEROL 124 <130 [facility] TO [facility]IC CONVERSION Comment: Result Comment: UNITS: mg/dL (calc) For patients with diabetes plus 1 major ASCVD risk factor, treating to a non-HDL-C goal of <100 mg/dL (LDL-C of <70 mg/dL) is considered a therapeutic option. Test Performed at: [facility] [address] [place] [address] AVINASH MELVIN DO,MPH 04/11/2017 11:1 1 AM CDT 04/11/2017 11:11 AM CDT Narrative [facility] TO EPIC CONVERSION - 04/11/2017 11:13 AM CDT Result Communication: No patient communication needed at this time Chapo Webber MD LABORATORY Final Result [facility] TO EPIC CONVERSION from Last 3 Months or Most Recently Relevant to Health Maintenance Insurance MEDICARE [facility] COMMERCIAL PAYER
--- OUTSIDE RECORDS SUMMARY | 2025-02-21 12:54 | XMS_ITS | Clinical Summary ---
Author Organization [facility] Address [address] [place] [address] Phone Care Team Providers Care Tipple Engineer Name Role Phone Marcellus Damon MD Primary Care Provider [phone] Dmitriy Pak DO Unavailable [phone] Allergies Active Allergy Reactions Criticality Noted [...] Insurance MEDICARE [employer] MEDICARE SUP Care Teams Tipple Engineer Relationship Specialty Start Date End Date Marcellus Damon MD [address] [place] [address] PCP - General Family Medicine 04/05/16 Dmitriy Pak DO [address] [place] [address] Gastroenterology 04/05/16
--- OUTSIDE RECORDS SUMMARY | 2025-02-21 12:54 | XMS_ITS | Clinical Summary ---
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
--- OUTSIDE RECORDS SUMMARY | 2025-02-21 12:54 | XMS_ITS | Clinical Summary ---
Author Organization [facility] Address [address] [place] [address] Care Team Providers Care Java Portal Developer Name Role Phone Jordana Randle MD Primary Care Provider [phone] Source Comments [facility],non-owned Affiliates and Associated Physician Practices is amultiple site organization consisting of ambulatory clinics and hospital sitesin [place], [place], [place] and [place]. This disclosure is being madepursuant to the Care Everywhere program and may not contain all information available regarding this patient. 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 Rash and nonspecific skin eruption 04/29/2012 Encounters Date Type Department Care Team Description 01/11/2025 Travel 12/28/2024 10:45 AM CDT Office Visit [facility] - ENT [address] [place] [phone] Mehrdad Archibald MD Keratosis obturans of external ear canal, right (Primary Dx) 12/28/2024 Travel from Last 3 Months Immunizations Immunization [...] Sex Assigned at Female 06/03/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 Legal Sex Female 6:23 AM 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 Gender Identity Female 06/03/2023 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 Sexual Orientation Not on file Last Filed Vital Signs Vital Sign Reading Time Taken Comments Blood Pressure 164/92 12/28/2024 10:24 AM CDT Pulse 71 12/28/2024 10:24 AM CDT Temperature 36.4 C (97.5 F) 09/30/2022 8:40 AM CDT Respiratory Rate 14 09/30/2022 8:55 AM CDT Oxygen Saturation 95% 05/13/2023 11:38 AM RANCH MANAGER Inhaled Oxygen Concentration - - Weight 44.5 kg (98 lb) 12/28/2024 10:24 AM CDT Height 162.6 cm (5' 4) 12/28/2024 10:24 AM CDT Body Mass Index 16.82 12/28/2024 10:24 AM CDT Plan of Treatment Upcoming Encounters Date Type Department Care Team (Late st Contact Info) Description 03/22/2025 10:30 AM CDT Office Visit [facility] - ENT [address] [place] [phone] Mehrdad Archibald MD [address] [place] [address] [place] [address] Health Maintenance Due Date Last Done Comments BONE DENSITY TESTING 1945 MEDICARE AWV 12 MONTHS 1945 DTAP/TDAP/TD VACCINES (1 - Tdap) 1966 ZOSTER VACCINE (1 of 2) 1997 Respiratory Syncytial Virus (RSV) Vaccine Pt: or over 60 yrs (1 - 1-dose 75+ series) 2022 COVID-19 VACCINE (3 - season) 2024 09/29/2020, 09/08/2020 DEPRESSION SCREENING 06/30/2024 INFLUENZA VACCINE (#1) 2025 3, 04/02/2022, 04/04/2021, Additional history exists HEPATITIS C [...] HEPATITIS SCREEN ACUTE Routine 05/21/2013 3:57 PM RANCH MANAGER from Last 3 Months or Most Recently Relevant to Health Maintenance Results * AK REMOVE CERUMEN IMPACTED W INSTR RT EAR (12/28/2024 10:47 AM CDT) Narrative Mehrdad Archibald MD - 12/28/2024 10:47 AM CDT Mehrdad Archibald MD 12/28/2024 10:48 AM Indication: Excessive Cerumen Impaction Procedure: Micro-otoscopy - AK REMOVE CERUMEN IMPACTED W INSTR: [[id number] RT] Procedure Note: Verbal consent for the [...] * HEPATITIS SCREEN ACUTE (05/21/2013 3:57 PM RANCH MANAGER) Hepatitis A Virus Antibody IgM NON-REACTI VE NON-REACT [facility] ([facility]) Comment: Test Performed at: [facility] [place] [address] [facility] [place] [address] AVINASH MELVIN DO,MPH Hepatitis B Virus Surface Antigen NON-REACTI VE NON-REACT [facility] ([facility]) Hepatitis B Core Virus Antibody IgM NON-REACTI VE NON-REACT [facility] ([facility]) Hepatitis C Antibody NON-REACTI VE NON-REACT [facility] ([facility]) Signal/Cutoff 0.01 <1.00 [facility]) 05/21/2013 3:57 PM RANCH MANAGER 05/21/2013 3:58 PM RANCH MANAGER [facility] Jenny Drew MD LAB - CHEMISTRY ORDERABLES Fi nal Result [facility] ([facility]) [id number] from Last 3 Months or Most Recently Relevant to Health Maintenance Insurance [place] [id number] MEDICARE [facility] [place] [address] MEDICARE MEDICARE [facility] [employer] Member Subscriber Plan / Payer ( fective 2019-) Name:Vitaliy Chaudhary Relation to Subscriber:Self Name:VITALIY CHAUDHARY Payer ID:Not on file Group ID:PLAN G Type:Commercial Address: [address] [facility] MEDICARE [employer] MEDICARE [employer] MEDICARE [employer] [place] MEDICARE [employer] [place] MEDICARE [employer] Member Subscriber Plan / Payer ( fective 2019-) Name:Vitaliy Chaudhary Relation to Subscriber:Self Name:VITALIY CHAUDHARY Payer ID:Not on file Group ID:PLAN G Type:Commercial Address: [address] [facility] MEDICARE [employer] [place] MEDICARE [employer] [place] MEDICARE [employer] [place] MEDICARE [employer] [place] MEDICARE [employer] Member Subscriber Plan / Payer ( fective 2019-) Name:Vitaliy Chaudhary Relation to Subscriber:Self Name:VITALIY CHAUDHARY Payer ID:Not on file Group ID:PLAN G Type:Commercial Address: [address] [facility] MEDICARE [employer] MEDICARE [employer] MEDICARE [employer] [place] MEDICARE [employer] [place] MEDICARE [employer] Member Subscriber Plan / Payer ( fective 2019-) Name:Vitaliy Chaudhary Relation to Subscriber:Self Name:VITALIY CHAUDHARY Payer ID:Not on file Group ID:PLAN G Type:Commercial Address: [address] [facility] MEDICARE [employer] MEDICARE [employer] MEDICARE [employer] [place] MEDICARE [employer] [place] MEDICARE [employer] Member Subscriber Plan / Payer ( fective 2019-) Name:Vitaliy Chaudhary Relation to Subscriber:Self Name:VITALIY CHAUDHARY Payer ID:Not on file Group ID:PLAN G Type:Commercial Address: [address] [facility] MEDICARE [employer] MEDICARE [employer] MEDICARE [employer] [place] MEDICARE [employer] [employer]ICARE [employer] Member Subscriber Plan / Payer ( fective 2019-) Name:Vitaliy Chaudhary Relation to Subscriber:Self Name:VITALIY CHAUDHARY Payer ID:Not on file Group ID:PLAN G Type:Commercial Address: [address] [facility] MEDICARE [employer] [place] [employer]ARE [employer] [place] MED[employer]ARE [employer] [place] MEDICARE [employer] [place] [employer]ARE [employer] Member Subscriber Plan / Payer ( fective 2019-) Name:Vitaliy Chaudhary Relation to Subscriber:Self Name:VITALIY CHAUDHARY Payer ID:Not on file Group ID:PLAN G Type:Commercial Address: [address] [facility] MEDICARE [employer] [place] [address] Care Teams Java Portal Developer Relationship Specialty Start Date End Date Jordana Randle MD [address] [place] [address] PCP - General Family Medicine 01/21/23
--- OUTSIDE RECORDS SUMMARY | 2025-02-21 12:55 | XMS_ITS | Clinical Summary ---
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 Gender Identity Not on file Sexual Orientation [...] Name Priority Date/Time Associated Diagnosis Comments DEXA TBS AXIAL SKELETON BONE DENSITY 1 OR MORE SITES Schedule Routine, Read Routine (OP Routine) 11/03/2024 10:35 AM CDT Osteoporosis, unspecified osteoporosis type, unspecified pathological fracture presence from Last 3 Months or Most Recently Relevant to Health Maintenance Results * Dexa TBS Axial Skeleton Bone Density 1 or more sites (11/03/2024 10:35 AM CDT) Anatomical Region Laterality Modality Wrist, Body N/A Radiographic Gladys ging Narrative 11/03/2024 11:34 AM CDT Patient Name: Barbie Chaudhary Date of : 1945 Date of scan: 11/03/2024 Bone mineral density was performed on a [employer] Discovery Densitometer. Based on machine cross-calibration and [...] by the International Society of Clinical Densitometry. [id number] Veronica Wilde MD IMG DXA PROCEDURES Final R esult from Last 3 Months or Most Recently Relevant to Health Maintenance Insurance MEDICARE [facility] MEDICARE SUPPLEMENT [facility] MEDICARE SUPPLEMENT INSURANCE MEDICARE [facility] HEALTHCARE [facility] MEDICARE SUPPLEMENT INSURANCE MEDICARE [facility] MEDICARE SUPPLEMENT Care Teams Project Lead Relationship Specialty Start Date End Date Jordana Randle MD PCP - General Family Medicine 10/24/23
[2025-02-21 14:35] LABS: Hematocrit 40.4 % (37.0-47.0); Hemoglobin 12.8 g/dL (12.0-15.0); Immature Granulocyte Percent A 1.0 % (0-0.5); Lymphocytes Absolute Auto 2.91 K/mm3 (0.9-3.2); Mean Corpuscular HGB Conc 31.7 g/dl (32-36); Mean Corpuscular Hemoglobin 27.8 pg (26-34); Mean Corpuscular Volume 87.8 fl (80-100); Nucleated Red Blood Cells Absolute Auto 0.000 K/mm3 (0.0-0.012); Nucleated Red Blood Cells Perc 0.0 % (0.0-0.2); Platelet Count Result 152 k/mm3 (150-375); Red Blood Count 4.60 M/mm3 (4.2-5.4); White Blood Count 8.6 K/mm3 (4.5-10.0)
[2025-02-21 15:17] LABS: Alanine Aminotransferase 27 U/L (6-35); Albumin Level 4.7 g/dL (3.5-5.1); Alkaline Phosphatase 48 U/L (38-126); Anion Gap 5 mmol/L (4-12); Aspartate Amino Transferase 41 U/L (14-36); Bilirubin,Total 0.6 mg/dL (0.2-1.3); Blood Urea Nitrogen 14 mg/dL (7-17); Calcium 9.5 mg/dL (8.4-10.2); Carbon Dioxide 31 mmol/L (22-30); Chloride 101 mmol/L (98-107); Cholesterol 260 mg/dL (0-200); Estimated Glomerular Filt Rate > 60; Glucose 99 mg/dL (65-110); HDL Direct 78 mg/dL; Sodium 137 mmol/L (137-145); Total Protein 7.6 g/dL (6.3-8.2); Triglycerides 143 mg/dL (<150)
[2025-02-21 15:25] LABS: Potassium 5.0 mmol/L (3.4-5.0)
== END 2025-02-21 12:50 | disposition home or self-care (01) ==
LOC: ANHGOSHLAB 12:50
PROVIDERS: PCP Family Medicine; Visit Provider Student in an Organized Health Care Education/Training Program
DX: E78.00 Pure hypercholesterolemia, unspecified (principal); I10 Essential (primary) hypertension
CPT/HCPCS: 36415; 80053; 80061; 85025

== ENCOUNTER 2025-06-10 15:45 | Outpatient (CLI) | payer MEDICARE, SELFPAY ==
--- NOTE | ~2025-06-10 | CT_ITS ---
EXAMINATION: CT brain wo con DATE: 06/10/2025 16:24 INDICATION: Multiple falls. . TECHNIQUE: Computed tomography (CT) of the head was performed without intravenous contrast. The mA was adjusted according to patient size. Iterative reconstruction technique was employed. The dose-length product was 529.67 mGy-cm. COMPARISON: CT dated 01/20/2019. FINDINGS: No acute intracranial bleed or extra-axial collections. Significant chronic ischemic change of periventricular white matter. No ventriculomegaly or midline shift. Calcific atherosclerotic changes of the intracranial portion of internal carotid arteries in the left vertebral artery. No acute cranial fracture. IMPRESSION: 1. No acute intracranial findings. Chronic ischemic changes and atherosclerotic changes of the arteries of [place]. 2. MRI is indicated if symptoms are significant and persistent. Reviewed, dictated and finalized at location T. REGULATOR
== END 2025-06-10 15:46 | disposition home or self-care (01) ==
PROVIDERS: PCP Family Medicine; Visit Provider Family Medicine
DX: R29.6 Repeated falls (principal); R29.818 Other symptoms and signs involving the nervous system
CPT/HCPCS: 70450